=== PATIENT | female | born 1985 | race Caucasian/White ===

== ENCOUNTER 2020-01-30 02:28 | Outpatient (RCR) | payer BC, SELFPAY ==
--- NOTE | 2020-01-30 13:06 | PM.OBTRLD ---
OB - Triage/Final Diagnosis Final Diagnosis (1) False labor: Code(s): O47.9 - False labor, unspecified Status: Acute
== END 2020-03-05 07:35 | disposition home or self-care (01) ==
LOC: ANHOBOP 02:28
PROVIDERS: Visit Provider Obstetrics & Gynecology
DX: O47.1 False labor at or after 37 completed weeks of gestation (principal); Z3A.37 37 weeks gestation of pregnancy
CPT/HCPCS: 59025

== ENCOUNTER 2020-02-13 14:41 | Outpatient (CLI) | payer BC, SELFPAY ==
[2020-02-13 15:09] LABS: Hematocrit 34.9 % (37.0-47.0); Hemoglobin 11.3 g/dL (12.0-15.0); Mean Corpuscular HGB Conc 32.4 g/dl (32-36); Mean Corpuscular Hemoglobin 29.2 pg (26-34); Mean Corpuscular Volume 90.2 fl (80-100); Mean Platelet Volume 9.6 fl (7.4-10.4); Platelet Count Result 238 k/mm3 (150-375); Red Blood Count 3.87 M/mm3 (4.2-5.4); Red Cell Distribution Width 14.6 % (11.5-14.5); White Blood Count 6.6 K/mm3 (4.5-10.0)
[2020-02-14 07:34] LABS: Rapid Plasma Reagin Non-Reactive (NonReactive)
== END 2020-02-13 14:42 | disposition home or self-care (01) ==
LOC: ANHLAB 14:43
PROVIDERS: Visit Provider Obstetrics & Gynecology
DX: Z34.90 Encounter for supervision of normal pregnancy, unspecified, unspecified trimester (principal); Z3A.00 Weeks of gestation of pregnancy not specified
CPT/HCPCS: 36415; 85027; 86592; 86850; 86900; 86901

== ENCOUNTER 2020-02-14 05:08 | Inpatient (IN) | payer BC, SELFPAY ==
[2020-02-14] VITALS (79 sets, daily range): BP systolic 91–129; BP diastolic 46–89; PULSE 55–94; RESP 15–19; TEMP 36.4–36.8; O2SAT 97–100; BMI 37.0
--- NOTE | 2020-02-14 00:34 | WPDANESEPP ---
Anes - Eval Pre Procedure Procedure: Operation Date: 02/14/20 07:30 Proposed Procedures p Repeat Section, Bilateral Tubal Ligation - Shadi Rose MD Date/Time: 02/14/20 00:34 Preop Diagnosis: Previous c section, desires sterility Pre Op Diagnosis: Pre-admit Patient Data Age: 34 Gender: F Height: Weight: Allergies Allergy/AdvReac Type Severity Reaction Status Date / Time No Known Allergies Allergy Unverified 06/18/18 15:42 Home Medications Medication Instructions Recorded Confirmed Type ipfvxaay-yje-[id number]-FA 1 tablet PO DAILY 01/30/20 01/30/20 History [] Patient hx anesthesia problems: none Family hx anesthesia problems: none PMFSH Past Medical History Medical History Obesity and not yet delivered Surgical History Surgical History (Updated 02/14/20 @ 00:35 by Fer Decker CRNA) Previous section Family History Family History Mother Hypertension Social History Social History Substance use: never Gender identity (if verbalized by the patient): Female Spiritual care concerns: No Exam Day of Procedure 02/14/20 00:34 Patient weight: overweight Neurological: alert and oriented
[2020-02-14] MEDS: LACTATED RINGERS 1,000 ML 999 ML IV CONT (06:15)
--- NOTE | 2020-02-14 06:35 | LDADM ---
This patient, Latoya Doshi, was admitted to Labor/Delivery/Recovery 120 on 02/14/20 at 05:08. Plans for scheduled section, pain management and were discussed with patient. Patient/family oriented to hospital policies and general routines including ID bracelet, bed and alarms, visiting hours, pain management, procedures, bathroom and other care routines, personal items, smoking policy, room service/diet and guest tray routines, infant security routines, and visiting hours. Patient/Family are encouraged to report perceived risks to care and to ask questions if they do not understand what they are told or what they should do. See OBIX for further documentation.
[2020-02-14 06:43] LABS: HIV 1/2 Ab P24 Ag Result Negative (Negative)
--- NOTE | 2020-02-14 07:06 | PM.IMHP ---
H&P: HPI History of Present Illness Date/Time: 02/14/20 07:06 Chief Complaint: Narrative: Latoya Doshi is a 34 year old female 001 presents for repeat delivery. care has been uncomplicated without abnormalities other than advanced maternal age screening which was all benign. Also she desires permanent sterilization via tubal ligation. I have discussed the permanence failure rate increased risk of ectopic and regret and she states good understanding and consents. Review of Systems Review of Systems: All systems reviewed & are unremarkable except as noted in HPI and below PMFSH Past Medical History Medical History Obesity and not yet delivered Surgical History Surgical History Previous section Family History Family History Mother Hypertension Social History Social History Smoking status: Never smoker Substance use: never Gender identity (if verbalized by the patient): Female Spiritual care concerns: No Meds Home Medications and Allergies Home Medications Medication Instructions Recorded Confirmed Type wsacdgfm-[id number]-Jr-FA 1 tablet PO DAILY 01/30/20 01/30/20 History [] Allergies Allergy/AdvReac Type Severity Reaction Status Date / Time No Known Allergies Allergy Unverified 06/18/18 15:42 Exam Const: General: cooperative and healthy appearing Resp: Auscultation: clear to auscultation bilaterally Cardio: Rate: regular rate Rhythm: regular rhythm GI: Inspection: normal to inspection Auscultation: normal bowel sounds Other: Fundal height 40cm heart tones 140 Assessment and Plan Assessment and plan (1) Term : Code(s): Z34.90 - Encounter for supervision of normal , unspecified, unspecified trimester Status: Acute (2) Advanced maternal age (AMA) in : Status: Acute (3) Encounter for female sterilization procedure: Code(s): Z30.2 - Encounter for sterilization Status: Acute
--- NOTE | 2020-02-14 07:46 | P.PCNOB_ITS ---
OB - Delivery Note Procedure Procedure: Procedures Operation Date: 02/14/20 07:30 <No data on this case meets the specified criteria> Route of delivery: (With bilateral tubal ligation) Specimen: Yes Quantitative Blood Loss (ml): 660 Anesthesia type: Spinal Disposition: PACU Narrative: Patient was prepped and draped in the usual sterile manner for this procedure. Pfannenstiel incision was made and carried down to the fascia which was then extended bilaterally the length of the skin incision. Superiorly and inferiorly dissected away from the rectus muscles with the peritoneum readily entered and the bladder flap developed. Uterus was scored the lower segment with clear fluid noted. Vertex was delivered without difficulty in the rest of baby as well. Cord was clamped and placenta was removed manually. Uterus was exteriorized and closed after membranes and clots were removed with 0 Monocryl in running interlocking mm manner with good approximation and hemostasis noted. Bilaterally the tubes were grasped and doubly ligated using 0 plain suture and the tubal segment was removed. Uterus was returned to the abdomen uterine incision and bilateral tubal stumps were intact and hemostatic. Fascia was approximated using 0 Vicryl from left angle midline in the right angle to midline with good approximation noted. Subcutaneous tissue approximated using 0 plain in a running manner and skin skin was then approximated using constantino. At this point procedure was considered terminated. [place] Baby Weeks of gestation at delivery: 39 gender: Male Weight (pounds): 7 Weight (ounces): 5 score one minute: 8 score five minutes: 9
[2020-02-14] MEDS: OXYTOCIN 30 UNITS/NS 500 ML 30 UNITS/500 ML BAG 125 UNITS IV CONT (08:19)
[2020-02-14] MEDS: KETOROLAC 30 MG/ML VIAL (*BKC) IV PUSH (11:02)
[2020-02-14] MEDS: IBUPROFEN 600 MG TABLET PO (17:06)
[2020-02-14] MEDS: DOCUSATE SODIUM 100 MG CAPSULE PO (17:06)
[2020-02-14] MEDS: SIMETHICONE 80 MG TAB.CHEW PO (17:06)
[2020-02-14] MEDS: HYDROcodone/acetaminophen (*CRX) 10-325 MG TABLET 1 TAB PO (17:07)
[2020-02-15] MEDS: HYDROcodone/acetaminophen (*CRX) 5-325 MG TABLET 1 TAB PO ×3 (04:14→19:58)
[2020-02-15 04:15] VITALS: BP 108/71; PULSE 66; RESP 16; TEMP 36.7; O2SAT 99
[2020-02-15] MEDS: IBUPROFEN 600 MG TABLET PO ×3 (04:15→19:57)
[2020-02-15] MEDS: SIMETHICONE 80 MG TAB.CHEW PO ×2 (04:35→12:57)
[2020-02-15 05:06] LABS: Basophils Percent Auto 0.4 % (0.2-1.2); Eosinophils Absolute Auto 0.1 K/mm3 (0-0.3); Eosinophils Percent Auto 1.7 % (0-4.4); Hematocrit 26.2 % (37.0-47.0); Hemoglobin 8.4 g/dL (12.0-15.0); Immature Granulocyte Absolute 0.03 K/mm3 (0.00-0.031); Immature Granulocyte Percent A 0.6 % (0-0.5); Lymphocytes Absolute Auto 1.03 K/mm3 (0.9-3.2); Lymphocytes Percent Auto 19.3 % (18.3-44.2); Mean Corpuscular HGB Conc 32.1 g/dl (32-36); Mean Corpuscular Hemoglobin 29.2 pg (26-34); Monocytes Absolute Auto 0.6 K/mm3 (0.1-0.6); Monocytes Percent Auto 11.2 % (2.6-8.5); Neutrophils Absolute Auto 3.6 K/mm3 (1.3-6.7); Neutrophils Percent Auto 66.8 % (45.5-73.1); Platelet Count Result 191 k/mm3 (150-375); Red Blood Count 2.88 M/mm3 (4.2-5.4); Red Cell Distribution Width 14.6 % (11.5-14.5); White Blood Count 5.3 K/mm3 (4.5-10.0)
[2020-02-15 09:10] VITALS: BP 116/70; PULSE 84; RESP 18; TEMP 36.3; O2SAT 98
--- NOTE | 2020-02-15 09:30 | PM.OBDSVD ---
DS: Admitting Diagnosis Admitting Diagnosis Admitting Diagnosis: OB - DS: Summary OB Procedures : None OB Procedures Intrapartum: and Tubal ligation OB Procedures: : None Peripartum Data Procedures: Procedures Operation Date: 02/14/20 07:30 Actual Procedures Side Surgeon p Repeat Section, Bilateral Tubal Ligation Shadi Rose MD Time Spent with Patient Time attestation: Total time spent providing and/or coordinating discharge services: DS: Data Data Completed and Pending Pending studies at discharge: Pending at discharge 02/14/20 08:50 Surgical [PTH] Routine Labs on day of discharge: Labs from last 24 hours 02/15/20 04:08 WBC 5.3 RBC 2.88 L Hgb 8.4 L Hct 26.2 L MCV 91.0 MCH 29.2 MCHC 32.1 RDW 14.6 H Plt Count 191 MPV 10.0 Immature Gran % (Auto) 0.6 H Neut % (Auto) 66.8 Lymph % (Auto) 19.3 [place] % (Auto) 11.2 H Eos % (Auto) 1.7 Baso % (Auto) 0.4 Lymph # (Auto) 1.03 [place] # (Auto) 0.6 Eos # (Auto) 0.1 Baso # (Auto) 0.0 Abs Immat Gran (auto) 0.03 Absolute Neuts (auto) 3.6 Absolute Nucleated RBC 0.0 Nucleated RBC % 0.0 Discharge Plan Discharge Discharging Clinician: Shadi Rose Anticipated Discharge Date/Time: 02/16/20 09:31 Patient Disposition: Home, Self-Care Activity: as tolerated Diet: as tolerated Wound Care Instructions: incision open to air Discharge Instructions: return to office Monday of this week for staple removal. Patient Instructions: Antibiotic Form Stand Alone Forms: General Discharge Information Follow-up/Referrals: Shadi Rose MD [Physician] - 3 Weeks Discharge Medications: New ibuprofen 600 mg Tablet 600 mg PO Q6H PRN (Reason: Cramping) Qty: 30 RF: 0 Continued 1 mg Tablet 1 tablet PO DAILY RF: 0 Date of admission: 02/14/20 05:08 Primary Care Provider: PHYSICIAN,AUTOMOBILE ENGINE ASSEMBLER Admitting Provider: Shadi Rose Attending physician on admission: Shadi Rose Condition: Stable
[2020-02-15] MEDS: DOCUSATE SODIUM 100 MG CAPSULE PO ×2 (09:44→17:27)
[2020-02-15] MEDS: POLYSACCHARIDE IRON COMPLEX 150 MG CAPSULE PO ×2 (09:44→17:27)
[2020-02-15] MEDS: MULTIVIT/MIN/PREN/FOL AC/IRON TABLET 1 TAB PO (09:44)
--- NOTE | 2020-02-15 11:25 | WPDANLDPN2 ---
Anes-Prog Note L&D Date/Time: 02/15/20 11:25 Comfortable throughout: section Neuraxial method: spinal Epidural/Spinal procedure site: clean & non-tender Neuro status: Neuro function grossly intact. Cardiovascular status: normal Respiratory status: normal Airway patency: baseline Mental status: baseline Post-Op hydration status: normal Vital Signs: Last Vital Signs Temp 36.7 C 02/15/20 04:15 Pulse 66 02/15/20 04:15 Resp 16 02/15/20 04:15 BP 108/71 02/15/20 04:15 Pulse Ox 99 02/15/20 04:15 Pain score (VAS): 2/10 I/O: Intake & Output 02/14/20 02/15/20 02/15/20 23:59 07:59 15:59 Intake Total 2000 800 Output Total 750 700 Balance 1250 100 Post-procedural complaints: none Patient feedback: Patient satisfied with anesthetic care.
--- NOTE | 2020-02-15 11:26 | WPDANLDNPN2 ---
Anes-Prog Note L&D-Neuraxial Date/Time: 02/15/20 11:26 Neuraxial medications: intrathecal PF morphine Opiod-related complaints: none Patient feedback: Patient satisfied with post-operative pain management.
[2020-02-15] MEDS: HYDROcodone/acetaminophen (*CRX) 10-325 MG TABLET 1 TAB PO (12:58)
[2020-02-15 19:45] VITALS: BP 125/70; PULSE 82; RESP 18; TEMP 36.4; O2SAT 98
[2020-02-16] MEDS: HYDROcodone/acetaminophen (*CRX) 5-325 MG TABLET 1 TAB PO ×4 (04:00→19:02)
[2020-02-16] MEDS: IBUPROFEN 600 MG TABLET PO ×2 (04:01→16:19)
[2020-02-16 08:40] VITALS: BP 98/54; PULSE 67; RESP 18; TEMP 36.6
[2020-02-16] MEDS: POLYSACCHARIDE IRON COMPLEX 150 MG CAPSULE PO ×2 (08:41→16:19)
[2020-02-16] MEDS: MULTIVIT/MIN/PREN/FOL AC/IRON TABLET 1 TAB PO (08:41)
[2020-02-16] MEDS: DOCUSATE SODIUM 100 MG CAPSULE PO ×2 (08:41→16:19)
[2020-02-16 19:01] VITALS: BP 104/62; PULSE 70; RESP 18; TEMP 36.3; O2SAT 96
[2020-02-17] MEDS: HYDROcodone/acetaminophen (*CRX) 5-325 MG TABLET 1 TAB PO ×2 (00:07→11:08)
[2020-02-17] MEDS: IBUPROFEN 600 MG TABLET PO ×2 (00:07→11:08)
[2020-02-17 08:05] VITALS: BP 110/55; PULSE 78; RESP 16; TEMP 37.1; O2SAT 99
--- NOTE | 2020-02-17 10:22 | PC.NURSE ---
Consulted with patient, reviewed feeding cues, frequencies, duration of feedings, feeding elimination flow sheet, and signs of adequate intake. Nipple care reviewed. Mom states that she breastfed her first daughter for 14 months just stopping 4 months ago. Mom declines having a feeding observed and states she does not have any questions. Instructed mother to call out if she decides she wants to have a feeding observed. Instructed feeding should be initiated three hours from start of last feeding or if feeding cues are noted before. Mother voiced understanding of information shared.
--- NOTE | 2020-02-17 10:29 | PC.NURSE ---
Mother verbalizes she is able to independently latch with appropriate positioning/alignment. She denies any nipple discomfort, is feeding as required and waking to feed if needed. Infant has had 14 effective feedings in the past 24 hours, and is currently meeting outcomes for weight, output, jaundice and feeding frequencies. Mother states she feels confident to continue effective at home. Reviewed transition to breast milk, signs of adequate intake, and engorgement/relief. Instructed to call ICP if intake/output less than required. Reviewed community resources on the [facility] website and in the Mom/Baby guide. Information on outpatient services provided. Mother has no further questions at this time.
[2020-02-17] MEDS: DOCUSATE SODIUM 100 MG CAPSULE PO (11:09)
[2020-02-17] MEDS: POLYSACCHARIDE IRON COMPLEX 150 MG CAPSULE PO (11:09)
[2020-02-17] MEDS: MULTIVIT/MIN/PREN/FOL AC/IRON TABLET 1 TAB PO (11:09)
[2020-02-18 08:55] VITALS: BP 136/83; PULSE 89; RESP 20; TEMP 37; O2SAT 100
--- NOTE | 2020-03-02 08:35 | PM.OBDSVD ---
DS: Admitting Diagnosis Admitting Diagnosis Admitting Diagnosis: OB - DS: Summary OB Procedures : None OB Procedures Intrapartum: OB Procedures: : None Peripartum Data Procedures: Procedures Operation Date: 02/14/20 07:30 Actual Procedures Side Surgeon p Repeat Section, Bilateral Tubal Ligation Shadi Rose MD Time Spent with Patient Time attestation: Total time spent providing and/or coordinating discharge services: DS: Data Data Completed and Pending Completed studies during hospitalization: Pending at discharge 02/14/20 08:50 Surgical [PTH] Routine Discharge Plan Discharge Discharging Clinician: Shadi Rose Anticipated Discharge Date/Time: 02/16/20 09:31 Patient Disposition: Home, Self-Care Activity: as tolerated Diet: as tolerated Wound Care Instructions: incision open to air Discharge Instructions: Education: Mom and Baby Guide Given to: Mother Follow-Up: Call your delivering provider's office for an appointment to be seen in: Monday, February 18 for staple removal and then in 3 weeks for regular exam. Mom and baby should come to the [facility] for the follow-up appointment. Appointment Date/Time: February 18, 2020 at 9:00 am What to expect at your follow-up visit: Blood Pressure Check Physical Assessment Call [phone] if you are unable to keep your appointment time. BREAST CARE: * Wear a snug supportive bra. * For engorgement discomfort: Breast Feeding: * Apply warm moist washcloths * Express milk as needed to relieve engorgement * Wear loose clothing * For sore nipples: * Identify correct latch-on * Apply warm moist washcloths before and after nursing * Air dry nipples after nursing * May apply Lansinoh cream to nipples ABDOMINAL INCISION: (if applicable) * Allow incision to air dry * Do NOT use lotions for powders on your incision * When showering, allow soap and water to run over the incision, but do not wash incision EPISIOTOMY/PERINEAL CARE: * Until bleeding stops, use your aliya bottle after urinating * Change your pad frequently throughout the day * You may take sitz baths several times a day (fill your bathtub with warm water and soak for 20 minutes.) Do NOT bathe in the water * No tub baths until seen by your physician - You may shower ACTIVITY: * Rest as much as possible. * Do not exercise or lift anything heavier than your baby (such as laundry or other children.) * Avoid stairs or driving as much as possible. * Do not put anything into the vagina. No douching, tampons, or sexual activity until seen by physician. NOTIFY PHYSICIAN IF YOU HAVE ANY QUESTIONS OR IF ANY OF THE FOLLOWING SYMPTOMS OCCUR: * If your incision becomes red, swollen, or more painful than what you have experienced in the hospital. * If your vaginal bleeding becomes foul smelling. * If your vaginal bleeding becomes more heavy than a period or if your bleeding changes from pink to bright red. However, you may pass an occasional walnut-sized clot once or twice for the first week . * If you experience a sharp, shooting pain in your calves. * If you discover a hard, reddened area on your breast or if you experience flu-like symptoms. DIET: * Eat regular, well-balanced meals. * Drink plenty of fluids daily. If , drink to thirst. Return to office Monday of this week for staple removal. Stand Alone Forms: General Discharge Information Follow-up/Referrals: Shadi Rose MD [Physician] - 3 Weeks Discharge Medications: New ibuprofen 600 mg Tablet 600 mg PO Q6H PRN (Reason: Cramping) Qty: 30 RF: 0 oxycodone-acetaminophen [Percocet] 5-325 mg tablet 1 tablet PO Q6H Qty: 20 RF: 0 Continued outwsbku-mjy-Oy-FA 1 mg Tablet 1 tablet PO DAILY
== END 2020-02-17 12:05 | disposition home or self-care (01) | DRG 785 ==
LOC: ANHLDR 05:15 → ANHOB2 10:30
PROVIDERS: Admitting Provider Obstetrics & Gynecology; Visit Provider Obstetrics & Gynecology
PROC: 10D00Z1 Extraction of Products of Conception, Low, Open Approach (ICD-10-PCS; CPT 59514; principal; 2020-02-14 07:30)
DX: O34.211 Maternal care for low transverse scar from previous cesarean delivery (principal); Z30.2 Encounter for sterilization; Z3A.39 39 weeks gestation of pregnancy; Z37.0 Single live birth
CPT/HCPCS: 36415; 85025; 86703; 88302; A9270; G0432; J0131; J1885; J2274; J2405; J2590; J7120

== ENCOUNTER 2021-06-29 18:01 | Emergency (ER) | payer BC, SELFPAY ==
--- NOTE | ~2021-06-29 | CT_ITS ---
EXAMINATION: CT abdomen pelvis w con DATE: 06/29/2021 19:16 INDICATION: upper ABD pain X 6 days TECHNIQUE: Computed tomography (CT) of the abdomen and pelvis was performed with 100 mL Omnipaque-350 intravenous contrast. Automated exposure control and iterative reconstruction technique were employe d. The dose-length product was 1487.18 mGy-cm. COMPARISON: None FINDINGS: Lower thorax: Unremarkable. Liver: Normal. Biliary/Gallbladder: Gallbladder is normal. No bile duct dilation. Spleen: Normal. Pancreas: No mass or duct dilation. Adrenals:No mass. Kidneys: No mass, stone, or hydronephrosis. GI tract: No small or large bowel dilation. Appendix not visualized. Long segment wall edema and mucosal hyperemia involving the distal and terminal ileum. At the midline portion of involved small bowel is focal outpouching measuring 2 cm (axial 150/214). Mesentery/Peritoneum: No ascites, mass, or free air. Numerous subcentimeter right lower quadrant mese nteric nodes. Retroperitoneum: No mass. Pelvis: Pelvic organs are within normal limits. Bones/Soft Tissues: Soft tissues and body wall unremarkable. No acute osseous finding. Additional Findings: None. IMPRESSION: Infectious or inflammatory distal and terminal ileitis (if there is a history of vasculitis, ischemia could also be considered in the differential). Associated inflamed Meckel's diverticulum versus tiffanie y fistula formation, with the later more likely if there is a history of IBD. Reviewed, dictated and finalized at location K. IMPRESSION: Infectious or inflammatory distal and terminal ileitis (if there is a history o f vasculitis, ischemia could also be considered in the differential). Associate d inflamed Meckel's diverticulum versus early fistula formation, with the later more likely if there is a history of IBD.
[2021-06-29 18:03] VITALS: BP 141/92; PULSE 102; RESP 16; TEMP 35.9; O2SAT 100
--- NOTE | 2021-06-29 18:22 | ED.ABDPAIN ---
HPI - Abdominal Pain General Chief Complaint: Abdominal Pain <ALONDRA Grover Last Filed: 06/30/21 00:17> Stated Complaint: abd pain <ALONDRA Grover Last Filed: 06/30/21 00:17> Time Seen by Provider: 06/29/21 18:09 <ALONDRA Grover Last Filed: 06/30/21 00:17> Source: patient <ALONDRA Grover Last Filed: 06/30/21 00:17> Mode of arrival: ambulatory <ALONDRA Grover Last Filed: 06/30/21 00:17> Limitations: no limitations <ALONDRA Grover Last Filed: 06/30/21 00:17> History of Present Illness HPI narrative: Patient is a 35 y/o F who presents to the ED with c/o epigastric abdominal pain. Patient reports having intermittent upper abdominal pain for the last 6 days. She states the pain will last approximately 3-5 minutes at a time before resolving. Over the last 6 days, the pain has become progressively worse. She did have a longer and more severe episode of pain prior to arrival tonight, which prompted her presentation to the ED. She has not tried taking any pain medication for the pain as it only lasts for a few minutes. She did try taking 1 of her 's acid reflux medication, but denied any noticeable change with this. She states the pain seems to be worse when she is hungry, but she denies noticing any post prandial pain. She denies any other symptoms, fever, chills, nausea, vomiting, diarrhea, constipation, cough, congestion, urinary symptoms, back pain. <ALONDRA Grover Last Filed: 06/30/21 00:17> Related Data Home Medications: Home Medications Medication Instructions Recorded Confirmed nugybrut-bvh-Tp-FA 1 tablet PO DAILY 01/30/20 01/30/20 <ALONDRA Grover Last Filed: 06/30/21 00:17> Allergies/Adverse Reactions: Allergies Allergy/AdvReac Type Severity Reaction Status Date / Time No Known Allergies Allergy Unverified 06/18/18 15:42 <Wendy Hewitt PA-C - Last Filed: 06/30/21 00:17> Review of Systems Review of Systems: CONSTITUTIONAL: Denies fever, chills, or sweats. ENT: Denies congestion. CARDIOVASCULAR: Denies chest pain. RESPIRATORY: Denies cough or dyspnea. GASTROINTESTINAL: Reports intermittent upper abdominal pain. Denies nausea, vomiting, rectal bleeding, constipation, or diarrhea. GENITOURINARY: Denies dysuria or hematuria. MUSCULOSKELETAL: Denies back pain. NEUROLOGIC: Denies headache, numbness, or weakness. <Wendy Hewitt PA-C - Last Filed: 06/30/21 00:17> All systems reviewed & are unremarkable except as noted in HPI and below <Wendy Hewitt PA-C - Last Filed: 06/30/21 00:17> PMFSH Past Medical History Medical History: Medical History Obesity and not yet delivered <Wendy Hewitt PA-C - Last Filed: 06/30/21 00:17> Surgical History Surgical History: Surgical History Previous section <Wendy Hewitt PA-C - Last Filed: 06/30/21 00:17> Family History Family History: Family History Mother Hypertension <Wendy Hewitt PA-C - Last Filed: 06/30/21 00:17> Social History Social History: Social History Smoking status: Never smoker Substance use: never Gender identity (if verbalized by the patient): Female Spiritual care concerns: No <Wendy Hewitt PA-C - Last Filed: 06/30/21 00:17> Exam Narrative: GENERAL: Well appearing, well-nourished, non-toxic, in no acute distress. HEAD: Normocephalic, atraumatic. NECK: Supple. No adenopathy, no masses. RESPIRATORY: Airway patent, respirations nonlabored. Clear to auscultation bilaterally, no rales, rhonchi, wheezing. CARDIOVASCULAR: Regular rate and rhythm without murmurs, rubs, or gallops. Radial pulses 2+ and equal bilaterally. ABDOMINAL: Soft, minimal ten
[2021-06-29 18:37] LABS: Basophils Percent Auto 0.5 % (0.2-1.2); Eosinophils Absolute Auto 0.4 K/mm3 (0-0.3); Eosinophils Percent Auto 4.9 % (0-4.4); Hematocrit 41.3 % (37.0-47.0); Hemoglobin 12.9 g/dL (12.0-15.0); Immature Granulocyte Absolute 0.03 K/mm3 (0.00-0.031); Immature Granulocyte Percent A 0.4 % (0-0.5); Lymphocytes Absolute Auto 1.15 K/mm3 (0.9-3.2); Lymphocytes Percent Auto 14.1 % (18.3-44.2); Mean Corpuscular HGB Conc 31.2 g/dl (32-36); Mean Corpuscular Hemoglobin 27.9 pg (26-34); Mean Corpuscular Volume 89.2 fl (80-100); Mean Platelet Volume 8.8 fl (7.4-10.4); Monocytes Absolute Auto 0.8 K/mm3 (0.1-0.6); Monocytes Percent Auto 9.3 % (2.6-8.5); Neutrophils Absolute Auto 5.8 K/mm3 (1.3-6.7); Neutrophils Percent Auto 70.8 % (45.5-73.1); Platelet Count Result 336 k/mm3 (150-375); Red Blood Count 4.63 M/mm3 (4.2-5.4); Red Cell Distribution Width 14.3 % (11.5-14.5); White Blood Count 8.2 K/mm3 (4.5-10.0)
[2021-06-29 18:40] VITALS: O2SAT 100
[2021-06-29 18:41] VITALS: BP 124/79; PULSE 100; RESP 18; O2SAT 100
[2021-06-29 18:49] LABS: Alanine Aminotransferase 20 U/L (4-35); Albumin Level 4.7 g/dL (3.5-5.1); Alkaline Phosphatase 118 U/L (38-126); Anion Gap 6 mmol/L (8-16); Aspartate Amino Transferase 29 U/L (14-36); Bilirubin,Total 0.2 mg/dL (0.2-1.3); Blood Urea Nitrogen 15 mg/dL (7-17); Carbon Dioxide 29 mmol/L (22-30); Chloride 103 mmol/L (98-107); Estimated CRCL calculation 97 ml/min; Estimated Glomerular Filt Rate > 60; Glucose 97 mg/dL (65-110); Lipase 128 U/L (23-300); Potassium 4.1 mmol/L (3.4-5.0); Sodium 138 mmol/L (137-145)
[2021-06-29 18:53] LABS: Appearance Urine Clear (Clear); Bilirubin Urine Negative (Negative); Blood Urine Negative (Negative); Glucose Urine UA Negative (Negative); Ketones Urine Negative (Negative); Leukocyte Esterase Ur Negative LEU/UL (Negative); Nitrate Urine Negative (Negative); Protein Urine Negative (Negative); Urobilinogen Urine 0.2 mg/dL (<2.0); pH Urine 6.5 (5.0-9.0)
[2021-06-29 18:57] LABS: Add Urine Microscopic? NO; Color Urine Light Yellow (Yellow)
[2021-06-29 20:20] LABS: Lactic Acid Reflex 0.5 mmol/L (0.7-2.0)
[2021-06-29 21:00] VITALS: BP 120/80; PULSE 88; RESP 19; O2SAT 97
== END 2021-06-29 21:00 | disposition home or self-care (01) ==
PROVIDERS: Physician Assistant; Emergency Provider Emergency Medicine
DX: K50.00 Crohn's disease of small intestine without complications (principal); E66.9 Obesity, unspecified; Z68.37 Body mass index [BMI] 37.0-37.9, adult; R93.3 Abnormal findings on diagnostic imaging of other parts of digestive tract
CPT/HCPCS: 36415; 74177; 80053; 81003; 81025; 83605; 83690; 85025; 99284; Q9967

== ENCOUNTER 2021-08-29 02:20 | Inpatient (IN) | payer BC, SELFPAY ==
[2021-08-29] VITALS (10 sets, daily range): BP systolic 106–144; BP diastolic 60–96; PULSE 91–152; RESP 15–25; TEMP 36.2–37.7; O2SAT 97–100; BMI 34.8
--- NOTE | ~2021-08-29 | XR_ITS ---
XR small bowel follow through DATE: 08/31/2021 14:38 INDICATION: Ileitis. Epigastric abdominal pain, fever TECHNIQUE: Serial images after oral administration of barium. Spot radiographs of the terminal ileum. [id number] DAP COMPARISON: 08/29/2021 CT abdomen pelvis 06/29/2021 CT abdomen pelvis FINDINGS: No large duodenal bulb. Normal duodenal C-loop with normal position of the ligament of Trei tz. No stricture, mucosal fold thickening erosion or ulceration or intraluminal mass lesion of the duoden um or jejunum. There are are at least several strictured distal ileal and terminal ileal segments with mucosal irreg ularity and thickening with intervening skip segments, which is common with regional enteritis (Crohn 's disease). IMPRESSION: Crohn's disease with at least several distal ileal and terminal ileal strictured segments with mucosal fold irregularity and thickening Contrast material reaches the colon within 1.5 hours. Reviewed, dictated and finalized at [facility] Reviewed, dictated and finalized at [facility]. IMPRESSION: Crohn's disease with at least several distal ileal and terminal ile al strictured segments with mucosal fold irregularity and thickening Contrast material reaches the colon within 1.5 hours.
--- NOTE | ~2021-08-29 | CT_ITS ---
EXAMINATION: CT abdomen pelvis w con DATE: 08/29/2021 05:23 INDICATION: Epigastric abdominal pain, fever TECHNIQUE: Computed tomography (CT) of the abdomen and pelvis was performed with 100 CC Omnipaque 300 intravenous contrast. Automated exposure control and iterative reconstruction technique were employe d. Exam dose: 1269.44 mGy-cm total exam DLP. COMPARISON: 06/29/2021 CT abdomen pelvis FINDINGS: Mild bilateral dependent lower lobe atelectasis. Normal heart size. No pericardial or pleur al effusion. The liver, gallbladder, bile ducts, spleen, pancreas, pancreatic duct, and adrenal glands and kidneys are unremarkable. No urinary tract calculus or hydroureteronephrosis. Normal caliber of the abdominal aorta. No retroperitoneal or pelvic mass lesion or adenopathy or asci kayleigh. The uterus and adnexal areas and urinary bladder is unremarkable. Normal appendix. There is prominent thickening of the wall and surrounding fat stranding of the dista l ileum and terminal ileum, suggesting infectious or inflammatory ileitis, most likely Crohn's diseas e. There is an adjacent 2.6 x 2.4 cm abscess. Mild reactive right lower quadrant lymph nodes are note d. IMPRESSION: Distal and terminal ileitis, 2.6 x 2.4 cm adjacent abscess, likely secondary to Crohn's disease Reviewed, dictated and finalized at [facility] Reviewed, dictated and finalized at [facility].
[2021-08-29] MEDS: SODIUM CHLORIDE 0.9% IV 1,000 ML 999 ML IV CONT (03:09)
[2021-08-29] MEDS: HYDROmorphone HCL INJ (*CRX) 1 MG/ML SYR 0.5 MG IV PUSH ×3 (03:10→19:59)
--- NOTE | 2021-08-29 03:12 | ED.GENADULT ---
HPI - General Adult General Chief complaint: Abdominal Pain Stated complaint: Epigastric pain, fever Time Seen by Provider: 08/29/21 02:31 History of Present Illness HPI narrative: 36-year-old female presented to the emergency department for evaluation of multiple days of epigastric pain with associated low-grade fever. Patient states that she has had epigastric pain that is constant. She reports it is not worsened or improved by anything. Patient denies any lower abdominal pain. Patient denies any cough or shortness of breath. Patient does have prior history of . Patient denies any prior history of Crohn's disease. Related Data Home Medications Medication Instructions Recorded Confirmed No Home Medications 08/29/21 08/29/21 Allergies Allergy/AdvReac Type Severity Reaction Status Date / Time No Known Allergies Allergy Verified 08/29/21 15:12 Review of Systems Review of Systems: CONSTITUTIONAL: Denies fever, chills, or sweats. EYES: Denies visual changes, redness, or discharge. ENT: Denies rhinorrhea, congestion, sore throat, or otalgia. CARDIOVASCULAR: Denies chest pain, palpitations, or edema. RESPIRATORY: Denies cough or dyspnea. GASTROINTESTINAL: See HPI GENITOURINARY: Denies dysuria or hematuria. SKIN: Denies rash or itching. MUSCULOSKELETAL: Denies back pain, joint pain, or myalgia. NEUROLOGIC: Denies headache, numbness, or weakness. [facility] Past Medical History Medical History Obesity Surgical History Surgical History Previous section Family History Family History Mother Hypertension Heart disease Acute myocardial infarction Grandparent Brain cancer Grandparent Diabetes mellitus Social History Social History (Updated 08/29/21 @ 15:18 by Harini Lorenzo RN) Social History: Patient lives at home with her Norman who will be her surrogate. They have 2 kids 1 boy 1 girl and no pets. 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 HEAD: normocephalic, atraumatic. EYES: PERRLA/EOMI, conjunctivae clear. NOSE: Normal no drainage THROAT: Pharynx clear, no exudate. NECK: Supple. No adenopathy, no masses. RESPIRATORY: Airway patent, respirations nonlabored. Clear to auscultation bilaterally, no rales, rhonchi, wheezing. CARDIOVASCULAR: Regular rate and rhythm without murmurs rubs or gallops. ABDOMINAL: Epigastric tenderness to palpation. No lower abdominal tenderness to palpation. No evidence of peritonitis. MUSCULOSKELETAL: Moves all extremities. Strength/ROM intact, No edema, No calf tenderness. NEURO: Alert. Cranial nerves II through XII intact. Grossly intact SKIN: Warm, dry. Normal Color Course Course Emergency Course: Dr. Grimes for surgery and Dr. Thompson for GI were consulted. Case was discussed with the hospitalist and patient was accepted for admission to the IMU. Patient was started on Zosyn while in the ED. Patient was updated on the results of her CT, plan to treat with antibiotics and for admission with further work-up. All question concerns were addressed. Patient was resting comfortably. Tachycardia improved. Vital Signs Vital signs: Vital Signs Temperature 99.
[2021-08-29 03:27] LABS: Basophils Percent Auto 0.3 % (0.2-1.2); Eosinophils Absolute Auto 0.2 K/mm3 (0-0.3); Eosinophils Percent Auto 1.9 % (0-4.4); Hematocrit 38.6 % (37.0-47.0); Hemoglobin 12.2 g/dL (12.0-15.0); Immature Granulocyte Absolute 0.05 K/mm3 (0.00-0.031); Immature Granulocyte Percent A 0.4 % (0-0.5); Lymphocytes Absolute Auto 0.91 K/mm3 (0.9-3.2); Lymphocytes Percent Auto 8.1 % (18.3-44.2); Mean Corpuscular HGB Conc 31.6 g/dl (32-36); Mean Corpuscular Hemoglobin 27.3 pg (26-34); Mean Corpuscular Volume 86.4 fl (80-100); Mean Platelet Volume 9.8 fl (7.4-10.4); Monocytes Absolute Auto 1.1 K/mm3 (0.1-0.6); Monocytes Percent Auto 10.2 % (2.6-8.5); Neutrophils Absolute Auto 8.9 K/mm3 (1.3-6.7); Neutrophils Percent Auto 79.1 % (45.5-73.1); Platelet Count Result 352 k/mm3 (150-375); Red Blood Count 4.47 M/mm3 (4.2-5.4); Red Cell Distribution Width 14.8 % (11.5-14.5); White Blood Count 11.2 K/mm3 (4.5-10.0)
[2021-08-29 03:30] LABS: Appearance Urine Clear (Clear); Bilirubin Urine Negative (Negative); Color Urine Yellow (Yellow); Glucose Urine UA Negative (Negative); Ketones Urine Negative (Negative); Leukocyte Esterase Ur Negative LEU/UL (Negative); Nitrate Urine Negative (Negative); Protein Urine Negative (Negative); Specific Grav Ur 1.015 (1.001-1.035); Urobilinogen Urine 0.2 mg/dL (<2.0); pH Urine 7.5 (5.0-9.0)
[2021-08-29 03:35] LABS: Bacteria Urine Trace /hpf; Mucus Urine Rare /lpf; RBC Urine 0-2 /hpf (0-2); Squamous Epithelial Cell Urine Few /hpf (Few); WBC Urine 0-3 /hpf
[2021-08-29 03:41] LABS: Add Urine Microscopic? YES; Blood Urine Trace (Negative)
[2021-08-29 03:49] LABS: Urine Pregnancy Test Negative
[2021-08-29 03:50] LABS: Pregnancy On Board Control Positive
[2021-08-29 04:00] LABS: Lactic Acid Reflex 0.6 mmol/L (0.7-2.0)
[2021-08-29 04:03] LABS: SARS-CoV-2 RNA PCR Negative
--- NOTE | 2021-08-29 04:14 | PC.NURSE ---
Received call from Makeda in Lab, who requests redraw CMP to confirm abnormally low potassium level. Order placed.
[2021-08-29 04:38] LABS: Alanine Aminotransferase 36 U/L (6-35); Albumin Level 3.8 g/dL (3.5-5.1); Alkaline Phosphatase 120 U/L (38-126); Anion Gap 5 mmol/L (8-16); Aspartate Amino Transferase 55 U/L (14-36); Bilirubin,Total 0.3 mg/dL (0.2-1.3); Blood Urea Nitrogen 8 mg/dL (7-17); Calcium 7.9 mg/dL (8.4-10.2); Carbon Dioxide 23 mmol/L (22-30); Chloride 107 mmol/L (98-107); Estimated Glomerular Filt Rate > 60; Glucose 109 mg/dL (65-110); Potassium 3.8 mmol/L (3.4-5.0); Sodium 135 mmol/L (137-145)
[2021-08-29] MEDS: SODIUM CHLORIDE 0.9% IV 1,000 ML 150 ML IV CONT (06:50)
--- NOTE | 2021-08-29 07:14 | PC.NURSE ---
Assumed care of pt, pt is alert and upright on stretcher, discussed POC. Pt has fluids and antibiotics infusing, blood cultures ordered and will be drawn by this RN.
--- NOTE | 2021-08-29 07:45 | PM.IMHP ---
H&P: HPI History of Present Illness Date/Time: 08/29/21 07:45 Chief Complaint: abdominal pain Narrative: Patient is a 36-year-old female with no significant medical history who presented the ED for abdominal pain and low-grade fever. Patient stated that she has been battling this off and on for about 6 weeks. However on Monday she woke up with what felt like fever and epigastric pain. She stated that her pain was about a 6/10 and was sharp and stabbing and dull. Patient stated that she was having some sweats and chills. She did state that about 2 weeks ago she came to the hospital for the same thing and they discharged with Levaquin however she chalked it up to the gas and did not take the medication. When the pain returned on Monday she did state that she took the Levaquin and has taken a total of 2 doses. She stated that she tried taking 2 Tylenol without relief. She also stated that she has been eating but very little. Yesterday she stated that she had some meatloaf, green beans, mashed potatoes however food does not exacerbate her pain. She did state that her pain has been progressively getting worse and was worse today. Liver enzymes are also elevated with an AST of 55 and ALT of 36. Patient denies any weakness, fatigue, shortness of breath, chest pain, nausea, vomiting, melena, hematemesis, headaches, visual changes, dizziness or falls. CT of the abdomen and pelvis with contrast was read as thickened appearance of the distal small bowel loops the level of the distal ileum with an abscess of 2.6 x 2.4 cm adjacent to the inflamed ileum. Also looks to reflect Crohn's disease. General surgery and GI has been consult. Patient did also express concerns about dehydration and stated that she is very dry. Heart rate is in the 120s. Patient received 1 L of fluids in the ED. Patient is being admitted through the hospitalist service at under observation at this time Review of Systems Review of Systems: All systems reviewed & are unremarkable except as noted in HPI and below PMFSH Past Medical History Medical History (Updated 08/29/21 @ 09:05 by KARLA Johnston) Obesity Surgical History Surgical History Previous section Family History Family History (Updated 08/29/21 @ 09:09 by KARLA Johnston) Mother Hypertension Heart disease Acute myocardial infarction Grandparent Brain cancer Grandparent Diabetes mellitus Social History Social History (Updated 08/29/21 @ 09:10 by KARLA Johnston) Social History: Patient lives at home with her Norman who will be her surrogate. They have 2 kids 1 boy 1 girl and no pets. 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 [employer] Gender identity (if verbalized by the patient): Female Spiritual care concerns: No Agree to blood products: Yes Meds Home Medications and Allergies Home Medications Medication Instructions Recorded Confirmed Type No Home Medications 08/29/21 08/29/21 History Allergies Allergy/AdvReac Type Severity Reaction Status Date / Time No Known Allergies Allergy Verified 08/29/21 02:26 Vital Signs Vital Signs - 24 hr 08/29/21 02:22 08/29/21 04:23 08/29/21 04:50 Temperature 99.8 F H 97.2 F L Pulse Rate 152 H 103 H 109 H Respiratory Rate 20 18 16 Blood Pressure 142/96 H 127/68 116/74 Pulse Oximetry 99 97 100 Oxygen Delivery Room Air 08/29/21 06:09 Temperature Pulse Rate 114 H Respiratory Rate 18 Blood Pressure 137/70 Pulse Oximetry 100 Oxygen Delivery Exam Const: General: cooperative, no acute distress, well developed, alert and aw
--- NOTE | 2021-08-29 08:31 | PC.NURSE ---
and HS at bedside, ok to downgrade patient to [facility] at this time.
[2021-08-29] MEDS: LACTATED RINGERS 1,000 ML 999 ML IV CONT (10:16)
--- NOTE | 2021-08-29 11:11 | PM.CNGS ---
Assessment and Plan Assessment and plan (1) Crohn's ileitis: Code(s): K50.00 - Crohn's disease of small intestine without complications Status: Deleted (2) Abdominal abscess: Status: Deleted (3) Crohn's disease of ileum with abscess: Code(s): K50.014 - Crohn's disease of small intestine with abscess Status: Acute Assessment and Plan: patient is pain-free at present. Agree with IV antibiotic therapy. Dr. Thompson to see and possibly start steroid therapy or other immune modulating therapy. Explained to patient that surgery only needed if medical therapy should fail. Abscess is small and I am hopeful it will resolve as the Crohn's disease is treated. Thank you for asking me to see this patient in consultation. I will follow along with you. History of Present Illness Consult details Consult date: 08/29/21 Reason for consult: abdominal pain ( Epigastric abdominal pain, fever) Requesting physician: Tres Conley MD Narrative: patient is a 36-year-old woman who has been very healthy. Six weeks ago she noticed some epigastric abdominal pain. it was troublesome enough that she went to the emergency room on June 29, 2021. CT imaging at that time suggested some type of ileitis. It was unclear if this was infectious or inflammatory bowel disease. Patient was to follow-up with Dr. Thompson. After her emergency room visit, she was fine. Until about 6 days ago. She then redeveloped her epigastric pain. It was not severe but did persist. Than Monday, 2 days ago, she started having fever. She came back to the emergency room last night. Exam there showed her to have a low-grade fever of 99.8 [place] [address]. She had a CT scan of the abdomen and pelvis which was read as showing ileitis likely Crohn's disease with a small mesenteric abscess of about 2 cm. Patient received analgesics in the emergency room and was pain-free at the time I saw her. She has been admitted and started on IV antibiotics. Dr. Thompson has been consulted to see her for gastroenterology. She is seen now in consultation. She has had no previous abdominal surgery. She has no family history of inflammatory bowel disease. Review of Systems Review of Systems: All systems reviewed & are unremarkable except as noted in HPI and below Constitutional: Constitutional: Reports as per HPI and Reports fever(s) Cardiovascular: Cardiovascular: Denies chest pain, Denies diaphoresis, Denies dyspnea and Denies paroxysmal nocturnal dyspnea Respiratory: Respiratory: Denies chest congestion, Denies cough and Denies dyspnea Gastrointestinal: Gastrointestinal: Reports abdominal pain ( Epigastric), Denies GI cramping, Denies diarrhea, Denies nausea and Denies vomiting Integumentary/Breasts: Skin/Breast: Denies lesions and Denies rash PMFSH Past Medical History Medical History (Updated 08/29/21 @ 11:24 by Tyler Grimes MD) Obesity Surgical History Surgical History Previous section Family History Family History (Updated 08/29/21 @ 09:09 by KARLA Johnston) Mother Hypertension Heart disease Acute myocardial infarction Grandparent Brain cancer Grandparent Diabetes mellitus Social History Social History (Updated 08/29/21 @ 09:10 by KARLA Johnston) Social History: Patient lives at home with her Norman who will be her surrogate. They have 2 kids 1 boy 1 girl and no pets. 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
[2021-08-29] MEDS: PANTOPRAZOLE SODIUM IV 40 MG VIAL IV PUSH ×2 (12:22→19:59)
--- NOTE | 2021-08-29 15:10 | ADMGEN ---
This patient, Latoya Doshi, was admitted to Medical Room 349-01. Patient/family oriented to hospital policies and general routines including ID bracelet, bed and alarms, visiting hours, pain management, procedures, bathroom and other care routines, personal items, smoking policy, room service/diet, and visiting hours. Information on how to activate the Rapid Response Team has been discussed. Patient/Family are encouraged to report perceived risks to care and to ask questions if they do not understand what they are told or what they should do.
[2021-08-30] MEDS: HYDROmorphone HCL INJ (*CRX) 1 MG/ML SYR 0.5 MG IV PUSH ×4 (00:26→15:09)
[2021-08-30 05:39] VITALS: BP 126/76; PULSE 93; RESP 18; TEMP 36.4; O2SAT 100
[2021-08-30 06:15] LABS: Basophils Percent Auto 0.4 % (0.2-1.2); Eosinophils Absolute Auto 0.2 K/mm3 (0-0.3); Eosinophils Percent Auto 1.7 % (0-4.4); Hematocrit 33.5 % (37.0-47.0); Hemoglobin 10.3 g/dL (12.0-15.0); Immature Granulocyte Absolute 0.04 K/mm3 (0.00-0.031); Immature Granulocyte Percent A 0.4 % (0-0.5); Lymphocytes Absolute Auto 1.24 K/mm3 (0.9-3.2); Lymphocytes Percent Auto 13.8 % (18.3-44.2); Mean Corpuscular HGB Conc 30.7 g/dl (32-36); Mean Corpuscular Hemoglobin 27.2 pg (26-34); Mean Corpuscular Volume 88.4 fl (80-100); Mean Platelet Volume 8.9 fl (7.4-10.4); Monocytes Absolute Auto 0.9 K/mm3 (0.1-0.6); Monocytes Percent Auto 10.4 % (2.6-8.5); Neutrophils Absolute Auto 6.6 K/mm3 (1.3-6.7); Neutrophils Percent Auto 73.3 % (45.5-73.1); Platelet Count Result 284 k/mm3 (150-375); Red Blood Count 3.79 M/mm3 (4.2-5.4); Red Cell Distribution Width 14.9 % (11.5-14.5)
[2021-08-30 06:32] LABS: Alanine Aminotransferase 30 U/L (6-35); Albumin Level 3.6 g/dL (3.5-5.1); Alkaline Phosphatase 116 U/L (38-126); Anion Gap 5 mmol/L (8-16); Aspartate Amino Transferase 31 U/L (14-36); Bilirubin,Total 0.8 mg/dL (0.2-1.3); Blood Urea Nitrogen 8 mg/dL (7-17); Calcium 8.1 mg/dL (8.4-10.2); Carbon Dioxide 26 mmol/L (22-30); Chloride 104 mmol/L (98-107); Estimated CRCL calculation 68 ml/min; Estimated Glomerular Filt Rate 56; Glucose 102 mg/dL (65-110); Magnesium 2.2 mg/dL (1.6-2.3); Potassium 4.1 mmol/L (3.4-5.0); Sodium 135 mmol/L (137-145)
[2021-08-30 07:50] LABS: Hepatitis B Surface Antigen Negative (Negative)
[2021-08-30 07:56] LABS: HAV RESULT Negative (Negative); Hepatitis B Core IgM Result Negative (Negative)
[2021-08-30 08:07] LABS: Hepatitis C Virus Antibody Negative (Negative)
[2021-08-30] MEDS: PANTOPRAZOLE SODIUM IV 40 MG VIAL IV PUSH ×2 (10:52→20:17)
--- NOTE | 2021-08-30 11:08 | WPDGICN ---
Assessment and Plan Assessment and plan (1) Crohn's disease of ileum with abscess: Code(s): K50.014 - Crohn's disease of small intestine with abscess Status: Acute Assessment and Plan: most likely diagnosis will get inflammatory markers, calprotectin in stool also check for TB status will do colonoscopy tomorrow, probably also will need SBFT already on abx and feeling better I think that she will need to be on biologics (anti-tnf, entyvio, skyrizi, etc) based on presentation (2) Sepsis: Code(s): A41.9 - Sepsis, unspecified organism Status: Acute Assessment and Plan: better, on treatment (3) Transaminitis: Code(s): R74.01 - Elevation of levels of liver transaminase levels Status: Acute Assessment and Plan: resolved probably from ongoing inflammation (4) Mesenteric abscess: Code(s): K65.1 - Peritoneal abscess Status: Acute Assessment and Plan: surgery on board small size on abx GI Consult Note Consult date/time: 08/30/21 11:08 Reason for consult: ileitis, abscess HPI: Latoya Doshi is a 36 year old female with no chronic major conditions who about six weeks ago had new onset of epigastric abdominal pain that was moderate to severe for which she came to the emergency room on June 29, 2021.? CT imaging at that time suggested ileitis, unclear if this was infectious or inflammatory bowel disease. Pain went away and she did not even take antibiotics that were prescribed, she never had follow-up in the office. About 6 days ago again with similar epigastric pain with radiation to both side but worse the right but 2 days prior admission had subjective fever and pain worsened. She had low-grade fever of 99.8 [place] [address].? Repeat CT scan of the abdomen and pelvis reviewed and showed ileitis likely Crohn's disease with a small mesenteric abscess of about 2 cm.? She has been admitted and started on IV antibiotics. Denies changes in bowel habits, no blood in stools, never had a colonoscopy, no family history of IBD. Also had mild elevated transaminases but today normal, hepatitis panel negative.?Only surgeries are C-sections Review of Systems Review of Systems: All systems reviewed & are unremarkable except as noted in HPI and below Constitutional: Constitutional: Reports as per HPI and Reports fever(s) Cardiovascular: Cardiovascular: Denies chest pain, Denies diaphoresis, Denies dyspnea and Denies paroxysmal nocturnal dyspnea Respiratory: Respiratory: Denies chest congestion, Denies cough and Denies dyspnea Gastrointestinal: Gastrointestinal: Reports abdominal pain ( Epigastric), Denies GI cramping, Denies diarrhea, Denies nausea and Denies vomiting Integumentary/Breasts: Skin/Breast: Denies lesions and Denies rash PMFSH Past Medical History Medical History (Updated 08/30/21 @ 11:15 by Martín Stephens MD) Mesenteric abscess Obesity Surgical History Surgical History Previous section Family History Family History Mother Hypertension Heart disease Acute myocardial infarction Grandparent Brain cancer Grandparent Diabetes mellitus Social History Social History (Updated 08/29/21 @ 15:18 by Harini Lorenzo RN) Social History: Patient lives at home with her Norman who will be her surrogate. They have 2 kids 1 boy 1 girl and no pets. 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
--- NOTE | 2021-08-30 12:15 | P.PNIM_ITS ---
Progress Note: A&P Assessment and Plan (1) Abdominal abscess: Status: Deleted Assessment and Plan: * CT of the abdominal and pelvis showed an abscess of 2.6 x 2.4 cm located in the ileum * General surgery has been consulted * Will continue Zosyn from ED * clear liquid diet * Dilaudid for pain medication * Zofran for nausea * White blood cell count 9.0 * Continue to trend white blood cell count * Blood cultures NGTD * Await cultures of abscess for further antibiotic coverage (2) Crohn disease: Code(s): K50.90 - Crohn's disease, unspecified, without complications Status: Deleted Assessment and Plan: * Abd/pel CT found an abscess in the ileum with inflamed small bowel loops most likely reflect Crohn's disease * Reports abdominal pain and fever * Zosyn continued * Prep for a colonoscopy * Medications for control have been discussed with the patient * Pain medications: Dilaudid 0.5mg IV Q4H PRN * Zofran for nausea * GI consulted thank you for help (3) Hypertension: Code(s): I10 - Essential (primary) hypertension Status: Acute Assessment and Plan: * BP elevated at 126/76 * Probably related to pain * trend blood pressure * consider adding therapy if no improvement (4) Transaminitis: Code(s): R74.01 - Elevation of levels of liver transaminase levels Status: Acute Assessment and Plan: * AST/ALT elevated at 31/30 * Continue to trend * Hep panel negative (5) Tachycardia: Code(s): R00.0 - Tachycardia, unspecified Status: Acute Assessment and Plan: * Resolved * HR is in the 90s * Seems to be secondary to infection and dehydration * Got one liter of fluids in the ed * Will repeat the bolus * Trend heart rate Time Spent With Patient Time with patient: Greater than 35 minutes Subjective Date/time seen: 08/30/21 1215 Interval history: 08/30/211214 Patient is doing well today. She stated that she has to go for a colonoscopy tomorrow which she does not seem excited about it. She denies any further abdominal pain, nausea, vomiting, diarrhea, constipation, weakness, or fatigue. 08/29/21? 07:45 Patient is a 36-year-old female with no significant medical history who presented the ED for abdominal pain and low-grade fever.? Patient stated that she has been battling this off and on for about 6 weeks.? However on Monday she woke up with what felt like fever and epigastric pain.? She stated that her pain was about a 6/10 and was sharp and stabbing and dull.? Patient stated that she was having some sweats and chills.? She did state that about 2 weeks ago she came to the hospital for the same thing and they discharged with Levaquin however she chalked it up to the gas and did not take the medication.? When the pain returned on Monday she did state that she took the Levaquin and has taken a total of 2 doses.? She stated that she tried taking 2 Tylenol without relief.? She also stated that she has been eating but very little.? Yesterday she stated that she had some meatloaf, green beans, mashed potatoes however food does not exacerbate her pain.? She did state that her pain has been progressively getting worse and was worse today.? Liver enzymes are also elevated with an AST of 55 and ALT of 36.? Patient denies any weakness, fatigue, shortness of breath, chest pain, nausea, vomiting, melena, hematemesis, headaches, visual changes, dizziness or falls.? CT of the abdomen and pelvis
--- NOTE | 2021-08-30 12:15 | PM.IMPN ---
Progress Note: A&P Assessment and Plan (1) Abdominal abscess: Status: Deleted Assessment and Plan: CT of the abdominal and pelvis showed an abscess of 2.6 x 2.4 cm located in the ileum General surgery has been consulted Will continue Zosyn from ED clear liquid diet Dilaudid for pain medication Zofran for nausea White blood cell count 9.0 Continue to trend white blood cell count Blood cultures NGTD Await cultures of abscess for further antibiotic coverage (2) Crohn disease: Code(s): K50.90 - Crohn's disease, unspecified, without complications Status: Deleted Assessment and Plan: Abd/pel CT found an abscess in the ileum with inflamed small bowel loops most likely reflect Crohn's disease Reports abdominal pain and fever Zosyn continued Prep for a colonoscopy Medications for control have been discussed with the patient Pain medications: Dilaudid 0.5mg IV Q4H PRN Zofran for nausea GI consulted thank you for help (3) Hypertension: Code(s): I10 - Essential (primary) hypertension Status: Acute Assessment and Plan: BP elevated at 126/76 Probably related to pain trend blood pressure consider adding therapy if no improvement (4) Transaminitis: Code(s): R74.01 - Elevation of levels of liver transaminase levels Status: Acute Assessment and Plan: AST/ALT elevated at 31/30 Continue to trend Hep panel negative (5) Tachycardia: Code(s): R00.0 - Tachycardia, unspecified Status: Acute Assessment and Plan: Resolved HR is in the 90s Seems to be secondary to infection and dehydration Got one liter of fluids in the ed Will repeat the bolus Trend heart rate Time Spent With Patient Time with patient: Greater than 35 minutes Subjective Date/time seen: 08/30/21 1215 Interval history: 08/30/21 1215 Patient is doing well today. She stated that she has to go for a colonoscopy tomorrow which she does not seem excited about it. She denies any further abdominal pain, nausea, vomiting, diarrhea, constipation, weakness, or fatigue. 08/29/21? 07:45 Patient is a 36-year-old female with no significant medical history who presented the ED for abdominal pain and low-grade fever.? Patient stated that she has been battling this off and on for about 6 weeks.? However on Monday she woke up with what felt like fever and epigastric pain.? She stated that her pain was about a 6/10 and was sharp and stabbing and dull.? Patient stated that she was having some sweats and chills.? She did state that about 2 weeks ago she came to the hospital for the same thing and they discharged with Levaquin however she chalked it up to the gas and did not take the medication.? When the pain returned on Monday she did state that she took the Levaquin and has taken a total of 2 doses.? She stated that she tried taking 2 Tylenol without relief.? She also stated that she has been eating but very little.? Yesterday she stated that she had some meatloaf, green beans, mashed potatoes however food does not exacerbate her pain.? She did state that her pain has been progressively getting worse and was worse today.? Liver enzymes are also elevated with an AST of 55 and ALT of 36.? Patient denies any weakness, fatigue, shortness of breath, chest pain, nausea, vomiting, melena, hematemesis, headaches, visual changes, dizziness or falls.? CT of the abdomen and pelvis with contrast was read as thickened appearance of the distal small bowel loops the level of the distal ileum with an abscess of 2.6 x 2.4 cm adjacent to the inflamed ileum.? Also looks to reflect Crohn's disease.? General surgery and GI has been consult.? Patient did also express concerns about dehydration and stated that she is very dry.? Heart rate is in the 120s.? Patient received 1 L of fluids in the ED. Exam Const: General: cooperative, no acute distress, well
--- NOTE | 2021-08-30 13:20 | PM.PNGS ---
Progress Note: A&P Assessment and Plan (1) Crohn's disease of ileum with abscess: Code(s): K50.014 - Crohn's disease of small intestine with abscess Status: Acute Assessment and Plan: Dr. Thompson consultation appreciated. No surgical indications at present. Continue IV antibiotics. Colonoscopy planned for tomorrow. Small-bowel follow-through planned as well. Subjective Subjective Date/Time Seen: 08/30/21 13:20 Patient reports: no new complaints, still having pain (Relieved by analgesics), tolerating liquids well and afebrile Review of Systems Review of Systems: All systems reviewed & are unremarkable except as noted in HPI and below (HPI) Constitutional: Constitutional: Denies chills, Denies fever(s) and Denies headache(s) Cardiovascular: Cardiovascular: Denies chest pain and Denies dyspnea Respiratory: Respiratory: Denies cough and Denies dyspnea Gastrointestinal: Gastrointestinal: Reports as per HPI Exam Const: General: cooperative, comfortable, alert and awake Nutritional Appearance: overweight Orientation/consciousness: patient oriented x3 and No confusion Limitations: no limitations GI: Inspection: normal to inspection, non-distended, obesity and no visible herniation GI Palp: Yes Soft to palpation, Yes Tenderness to palpation present (GI) (Right lower quadrant-hurts in epigastrium), Yes No hepatosplenomegaly present, No Hernia present and No Palpable mass present Auscultation: Hypoactive bowel sounds present Objective Data Vital Signs Vital Signs: Vital Signs - 24 hr 08/29/21 14:00 08/29/21 20:43 08/30/21 05:39 Temperature 37.2 C 36.6 C 36.4 C L Pulse Rate 91 96 93 Respiratory Rate 18 18 18 Blood Pressure 118/71 106/60 126/76 Pulse Oximetry 100 99 100 Intake/Output Intake/Output: Intake & Output 08/27/21 08/28/21 08/29/21 08/30/21 23:59 23:59 23:59 23:59 Intake Total 1250 1750 Output Total 400 Balance 850 1750 Meds/Results Medications: Active Medications Generic Name Dose Route Start Last Admin Trade Name Freq PRN Reason Stop Dose Admin Bisacodyl 20 mg 08/30/21 17:00 Bisacodyl 5 Mg Tablet Ec PO 08/30/21 17:01 ONCE ONE Hydromorphone HCl 0.5 mg 08/29/21 06:49 08/30/21 10:51 Hydromorphone Hcl Inj (*Crx) 1 Mg/Ml Syr IV PUSH 0.5 mg Q4H PRN Administration Pain Rated 7-10 Piperacillin/Tazobactam/Dextrose 3.375 gm in 50 mls @ 100 mls/hr 08/29/21 09:10 08/30/21 05:39 Zosyn 3.375 Gm/D5w 50ml Pm IVPB 100 mls/hr Q6H MIMI Administration Magnesium Citrate 300 ml 08/31/21 03:00 Magnesium Citrate 300 Ml Btl PO 08/31/21 03:01 ONCE ONE Ondansetron HCl 4 mg 08/29/21 06:49 Ondansetron Inj 4 Mg/2 Ml Vial IV PUSH Q4H PRN Nausea Pantoprazole Sodium 40 mg 08/29/21 09:00 08/30/21 10:52 Pantoprazole Sodium Iv 40 Mg Vial IV PUSH 40 mg Q12HR MIMI Administration Polyethylene Glycol 238 gm 08/30/21 17:00 Polyethylene Glycol 3350 238 Gm Bottle PO 08/30/21 17:01 ONCE ONE Radiology Results: ITS Impressions Abdomen/Pelvis CT 08/29/21 11:13 IMPRESSION: Distal and terminal ileitis, 2.6 x 2.4 cm adjacent abscess, likely secondary to Crohn's disease Labs Labs: Laboratory Results - last 24 hr 08/30/21 08/30/21 08/30/21 05:59 05:59 05:59 WBC 9.0 RBC 3.79 L Hgb 10.3 L Hct 33.5 L MCV 88.4 MCH 27.2 MCHC 30.7 L RDW 14.9 H Plt Count 284 MPV 8.9 Immature Gran % (Auto) 0.4 Neut % (Auto) 73.3 H Lymph % (Auto) 13.8 L [place] % (Auto) 10.4 H Eos % (Auto) 1.7 Baso % (Auto) 0.4 Lymph # (Auto) 1.24 [place] # (Auto) 0.9 H Eos # (Auto) 0.2 Baso # (Auto) 0.0 Abs Immat Gran (auto) 0.04 H Absolute Neuts (auto) 6.6 Absolute Nucleated RBC 0.0 Nucleated RBC % 0.0 Sodium 135 L Potassium 4.1 Chloride 104 Carbon Dioxide 26 Anion Gap 5 L BUN 8 Creatinine 1.10 H Estim Creat Clear Calc
[2021-08-30] MEDS: ONDANSETRON INJ 4 MG/2 ML VIAL IV PUSH (15:16)
[2021-08-30 15:30] VITALS: BP 130/72; PULSE 90; RESP 16; TEMP 35.8; O2SAT 100
[2021-08-30] MEDS: BISACODYL 5 MG TABLET EC 20 MG PO (18:40)
[2021-08-30] MEDS: polyethylene glycoL 3350 238 GM BOTTLE PO (18:40)
[2021-08-30 20:30] VITALS: BP 119/69; PULSE 92; RESP 18; TEMP 36.2; O2SAT 100
[2021-08-30] MEDS: HYDROmorphone HCL INJ (*CRX) 1 MG/ML SYR IV PUSH (21:58)
[2021-08-31] VITALS (7 sets, daily range): BP systolic 99–134; BP diastolic 53–82; PULSE 69–102; RESP 16–20; TEMP 36.4–37.1; O2SAT 100
[2021-08-31] MEDS: MAGNESIUM CITRATE 300 ML BTL PO (02:21)
[2021-08-31] MEDS: HYDROmorphone HCL INJ (*CRX) 1 MG/ML SYR IV PUSH (04:39)
[2021-08-31 05:58] LABS: Basophils Percent Auto 0.4 % (0.2-1.2); Eosinophils Absolute Auto 0.2 K/mm3 (0-0.3); Hematocrit 35.8 % (37.0-47.0); Hemoglobin 11.1 g/dL (12.0-15.0); Immature Granulocyte Absolute 0.03 K/mm3 (0.00-0.031); Immature Granulocyte Percent A 0.3 % (0-0.5); Lymphocytes Absolute Auto 1.27 K/mm3 (0.9-3.2); Lymphocytes Percent Auto 13.8 % (18.3-44.2); Mean Corpuscular Hemoglobin 27.4 pg (26-34); Mean Corpuscular Volume 88.4 fl (80-100); Mean Platelet Volume 9.1 fl (7.4-10.4); Neutrophils Absolute Auto 6.7 K/mm3 (1.3-6.7); Neutrophils Percent Auto 72.5 % (45.5-73.1); Platelet Count Result 324 k/mm3 (150-375); Red Blood Count 4.05 M/mm3 (4.2-5.4); White Blood Count 9.2 K/mm3 (4.5-10.0)
[2021-08-31 06:19] LABS: Alanine Aminotransferase 45 U/L (6-35); Albumin Level 4.2 g/dL (3.5-5.1); Alkaline Phosphatase 176 U/L (38-126); Anion Gap 9 mmol/L (8-16); Aspartate Amino Transferase 44 U/L (14-36); Blood Urea Nitrogen 5 mg/dL (7-17); Calcium 8.8 mg/dL (8.4-10.2); Carbon Dioxide 25 mmol/L (22-30); Chloride 103 mmol/L (98-107); Estimated CRCL calculation 75 ml/min; Estimated Glomerular Filt Rate > 60; Glucose 111 mg/dL (65-110); Magnesium 2.5 mg/dL (1.6-2.3); Potassium 3.8 mmol/L (3.4-5.0); Sodium 137 mmol/L (137-145)
[2021-08-31 06:30] LABS: CRP 13.4 mg/dL (<1.0)
[2021-08-31 07:29] LABS: Hepatitis B Surface Anti Res Positive
[2021-08-31 07:35] LABS: Erythrocyte Sedimentation Rate 108 mm/hr (0-20)
[2021-08-31] MEDS: PANTOPRAZOLE SODIUM IV 40 MG VIAL IV PUSH ×2 (08:26→20:27)
--- NOTE | 2021-08-31 09:00 | PM.IMPN ---
Progress Note: A&P Assessment and Plan (1) Abdominal abscess: Status: Deleted Assessment and Plan: CT of the abdominal and pelvis showed an abscess of 2.6 x 2.4 cm located in the ileum General surgery has been consulted Will continue Zosyn from ED clear liquid diet Dilaudid for pain medication Zofran for nausea White blood cell count 9.2 Continue to trend white blood cell count Blood cultures NGTD (2) Crohn disease: Code(s): K50.90 - Crohn's disease, unspecified, without complications Status: Deleted Assessment and Plan: Abd/pel CT found an abscess in the ileum with inflamed small bowel loops most likely reflect Crohn's disease Reports abdominal pain and fever Zosyn continued Colonoscopy revealed consistency with Crohn's CRP 13.4, ESR 108 Steroid initiated Medications for control have been discussed with the patient Pain medications: Dilaudid 0.5mg IV Q4H PRN Zofran for nausea GI consulted thank you for help (3) Hypertension: Code(s): I10 - Essential (primary) hypertension Status: Acute Assessment and Plan: BP elevated at 101/68 Probably related to pain trend blood pressure consider adding therapy if no improvement (4) Transaminitis: Code(s): R74.01 - Elevation of levels of liver transaminase levels Status: Acute Assessment and Plan: AST/ALT elevated at 44/45 Continue to trend Hep panel negative (5) Tachycardia: Code(s): R00.0 - Tachycardia, unspecified Status: Acute Assessment and Plan: Resolved HR is in the 90s Seems to be secondary to infection and dehydration Got one liter of fluids in the ed Will repeat the bolus Trend heart rate Time Spent With Patient Time with patient: Greater than 35 minutes Subjective Date/time seen: 08/31/21 09 Interval history: 08/31/21 09 Patient is doing ok, She is getting ready to go to get her colonoscopy. She seems a bit anxious however, she seems to be in good spirits. She denies any pain, chest pain, shortness of breath, nausea, vomiting, diarrhea, or constipation. EGD did find some swelling and edema. No colitis was noted. Steroids have been initiated. SBFT also ordered. 08/30/21 1215 Patient is doing well today. She stated that she has to go for a colonoscopy tomorrow which she does not seem excited about it. She denies any further abdominal pain, nausea, vomiting, diarrhea, constipation, weakness, or fatigue. 08/29/21? 07:45 Patient is a 36-year-old female with no significant medical history who presented the ED for abdominal pain and low-grade fever.? Patient stated that she has been battling this off and on for about 6 weeks.? However on Monday she woke up with what felt like fever and epigastric pain.? She stated that her pain was about a 6/10 and was sharp and stabbing and dull.? Patient stated that she was having some sweats and chills.? She did state that about 2 weeks ago she came to the hospital for the same thing and they discharged with Levaquin however she chalked it up to the gas and did not take the medication.? When the pain returned on Monday she did state that she took the Levaquin and has taken a total of 2 doses.? She stated that she tried taking 2 Tylenol without relief.? She also stated that she has been eating but very little.? Yesterday she stated that she had some meatloaf, green beans, mashed potatoes however food does not exacerbate her pain.? She did state that her pain has been progressively getting worse and was worse today.? Liver enzymes are also elevated with an AST of 55 and ALT of 36.? Patient denies any weakness, fatigue, shortness of breath, chest pain, nausea, vomiting, melena, hematemesis, headaches, visual changes, dizziness or falls.? CT of the abdomen and pelvis with contrast was read as thickened appearance of the distal small bowel loops the level of
--- NOTE | 2021-08-31 09:00 | P.PNIM_ITS ---
Progress Note: A&P Assessment and Plan (1) Abdominal abscess: Status: Deleted Assessment and Plan: * CT of the abdominal and pelvis showed an abscess of 2.6 x 2.4 cm located in the ileum * General surgery has been consulted * Will continue Zosyn from ED * clear liquid diet * Dilaudid for pain medication * Zofran for nausea * White blood cell count 9.2 * Continue to trend white blood cell count * Blood cultures NGTD (2) Crohn disease: Code(s): K50.90 - Crohn's disease, unspecified, without complications Status: Deleted Assessment and Plan: * Abd/pel CT found an abscess in the ileum with inflamed small bowel loops most likely reflect Crohn's disease * Reports abdominal pain and fever * Zosyn continued * Colonoscopy revealed consistency with Crohn's * CRP 13.4, ESR 108 * Steroid initiated * Medications for control have been discussed with the patient * Pain medications: Dilaudid 0.5mg IV Q4H PRN * Zofran for nausea * GI consulted thank you for help (3) Hypertension: Code(s): I10 - Essential (primary) hypertension Status: Acute Assessment and Plan: * BP elevated at 101/68 * Probably related to pain * trend blood pressure * consider adding therapy if no improvement (4) Transaminitis: Code(s): R74.01 - Elevation of levels of liver transaminase levels Status: Acute Assessment and Plan: * AST/ALT elevated at 44/45 * Continue to trend * Hep panel negative (5) Tachycardia: Code(s): R00.0 - Tachycardia, unspecified Status: Acute Assessment and Plan: * Resolved * HR is in the 90s * Seems to be secondary to infection and dehydration * Got one liter of fluids in the ed * Will repeat the bolus * Trend heart rate Time Spent With Patient Time with patient: Greater than 35 minutes Subjective Date/time seen: 08/31/21 0900 Interval history: 08/31/21 0900 Patient is doing ok, She is getting ready to go to get her colonoscopy. She seems a bit anxious however, she seems to be in good spirits. She denies any pain, chest pain, shortness of breath, nausea, vomiting, diarrhea, or constipation. EGD did find some swelling and edema. No colitis was noted. Steroids have been initiated. SBFT also ordered. 08/30/21 1215 Patient is doing well today. She stated that she has to go for a colonoscopy tomorrow which she does not seem excited about it. She denies any further abdominal pain, nausea, vomiting, diarrhea, constipation, weakness, or fatigue. 08/29/21? 07:45 Patient is a 36-year-old female with no significant medical history who presented the ED for abdominal pain and low-grade fever.? Patient stated that she has been battling this off and on for about 6 weeks.? However on Monday she woke up with what felt like fever and epigastric pain.? She stated that her pain was about a 6/10 and was sharp and stabbing and dull.? Patient stated that she was having some sweats and chills.? She did state that about 2 weeks ago she came to the hospital for the same thing and they discharged with Levaquin however she chalked it up to the gas and did not take the medication.? When the pain returned on Monday she did state that she took the Levaquin and has taken a total of 2 doses.? She stated that she tried taking 2 Tylenol without relief.? She also stated that she has been eating but very little.? Yesterday she stated that she had some m
[2021-08-31] MEDS: LACTATED RINGERS 1,000 ML 150 ML IV CONT (09:49)
--- NOTE | 2021-08-31 15:07 | PM.PNGS ---
Progress Note: A&P Assessment and Plan (1) Crohn's disease of ileum with abscess: Code(s): K50.014 - Crohn's disease of small intestine with abscess Status: Acute Assessment and Plan: Colonoscopy today showed ileitis consistent with Crohn's affecting the terminal ileum and complicated with a small abscess. Continue IV antibiotics and IV steroids were added. SBFT showed multiple distal ileal and terminal ileal strictured segments with mucosal irregularity and thickening, consistent with Crohn's disease. Contrast reached the colon within 1.5 hours. Okay to start liquids now and advance diet as tolerated. Plan I have discussed the patient's case and plan of care with Dr. Grimes. Subjective Subjective Date/Time Seen: 08/31/21 15:07 Patient reports: no new complaints, feels better and afebrile Interval history: This is a 36 yo female who presented to the ER with epigastric abdominal pain and workup revealed CT evidence of ileitis with a small intra-abdominal abscess. She was admitted and started on IV antibiotics. GI consulted and she underwent a colonoscopy today that showed ileitis with multiple biopsies taken. Chart reviewed. Patient seen and examined. She reports feeling well. She tolerated the bowel prep well yesterday. Has not had any liquids yet since being back from the colonoscopy. Denies any abdominal pain or nausea. No other complaints at this time. Review of Systems Review of Systems: All systems reviewed & are unremarkable except as noted in HPI and below Exam Const: General: comfortable, no acute distress and awake Orientation/consciousness: patient oriented x3 GI: Inspection: non-distended and obesity GI Palp: Yes Soft to palpation, Yes Tenderness to palpation present (GI) (mild TTP in RLQ), No Guarding due to palpation present (GI) and Yes No hepatosplenomegaly present Auscultation: normal bowel sounds Psych: Insight: Good insight present (Psych) Objective Data Vital Signs Vital Signs: Vital Signs - 24 hr 08/30/21 15:30 08/30/21 20:30 08/31/21 05:39 Temperature 96.5 F L 97.1 F L 98.8 F Pulse Rate 90 92 83 Respiratory Rate 16 18 16 Blood Pressure 130/72 119/69 120/60 Pulse Oximetry 100 100 100 Oxygen Delivery 08/31/21 08:00 08/31/21 09:41 08/31/21 10:43 Temperature 97.6 F Pulse Rate 95 80 Respiratory Rate 18 20 Blood Pressure 117/71 102/53 L Pulse Oximetry 100 100 Oxygen Delivery Room Air Room Air Room Air 08/31/21 10:53 08/31/21 11:03 Temperature Pulse Rate 69 69 Respiratory Rate 18 18 Blood Pressure 99/62 L 101/68 Pulse Oximetry 100 100 Oxygen Delivery Room Air Room Air Intake/Output Intake/Output: Intake & Output 08/28/21 08/29/21 08/30/21 08/31/21 23:59 23:59 23:59 23:59 Intake Total 1250 2500 550 Output Total 400 Balance 850 2500 550 Meds/Results Medications: Active Medications Generic Name Dose Route Start Last Admin Trade Name Freq PRN Reason Stop Dose Admin Hydromorphone HCl 1 mg 08/30/21 18:52 08/31/21 04:39 Hydromorphone Hcl Inj (*Crx) 1 Mg/Ml Syr IV PUSH 1 mg Q4H PRN Administration Pain Rated 7-10 Piperacillin/Tazobactam/Dextrose 3.375 gm in 50 mls @ 100 mls/hr 08/29/21 09:10 08/31/21 05:52 Zosyn 3.375 Gm/D5w 50ml Pm IVPB 100 mls/hr Q6H MIMI Administration Lactated Ringer's 1,000 mls @ 150 mls/hr 08/31/21 09:45 08/31/21 10:57 Lr - Lactated Ringers Iv IV CONT Infused .Q6H40M MIMI Infusion Methylprednisolone Sodium Succinate 40 mg 08/31/21 11:10 Methylprednisolone Sod Succ 40 Mg Vial IV PUSH Q12HR MIMI Ondansetron HCl 4 mg 08/29/21 06:49 08/30/21 15:16 Ondansetron Inj 4 Mg/2 Ml Vial IV PUSH 4 mg Q4H PRN Administration Nausea Pantoprazole Sodium 40 mg 08/29/21 09:00 08/31/21 08:26 Pantoprazole Sodium Iv 40 Mg Vial IV PUSH 40 mg Q12HR MIMI Administration Radiology Results: ITS Impressions Abdomen/Pelvis CT 08/29/21 11:13 IMPRESSION:
--- NOTE | 2021-08-31 15:50 | WPDCDIQUERY2 ---
CDI Query Clarification Request 08/30 Gastroenterology documented: Sepsis: ?Code(s): A41.9 - Sepsis, unspecified organism ?Status:?Acute ?Assessment and Plan: better, on treatment Documentation shows patient with abdominal abscess, one time temp. 08/30 of 96.5, Pulse 152, Resp. 25, patient is on IVF's LR 150 mls/hr and Zosyn 150 mls/hr IVPB Q6H. Blood Cultures pending With this documentation taken from clinicals, do you agree with diagnosis of Sepsis or is there a more specific diagnosis for above findings, or unable to determine. <Carmelita Meyers - Last Filed: 08/31/21 16:03> Provider Comments She does meet sirs criteria for sepsis with the above criteria <KARLA Johnston - Last Filed: 09/01/21 06:39>
[2021-08-31] MEDS: methylPREDNISolone SOD SUCC 40 MG VIAL IV PUSH ×2 (15:59→20:27)
--- NOTE | 2021-08-31 16:29 | PM.PNGS ---
Progress Note: A&P Assessment and Plan (1) Crohn's disease of ileum with abscess: Code(s): K50.014 - Crohn's disease of small intestine with abscess Status: Acute Assessment and Plan: Colonoscopy was negative for colonic disease. Terminal ileum appearance consistent with Crohn's disease. Upper GI small-bowel follow-through showed evidence of active disease with some narrowed areas in the distal ileum consistent with Crohn's disease as well. Patient receiving IV Zosyn as well as steroids intravenously. Her pain has been improving. Will follow along with you but it appears this will resolve with medical treatment. Subjective Subjective Date/Time Seen: 08/31/21 16:29 Patient reports: pain is less ( Per nursing and hospitalist) and afebrile Interval history: patient had gone down for colonoscopy when I came by to see her on rounds. Objective Data Vital Signs Vital Signs: Vital Signs - 24 hr 08/30/21 20:30 08/31/21 05:39 08/31/21 08:00 Temperature 36.2 C L 37.1 C Pulse Rate 92 83 Respiratory Rate 18 16 Blood Pressure 119/69 120/60 Pulse Oximetry 100 100 Oxygen Delivery Room Air 08/31/21 09:41 08/31/21 10:43 08/31/21 10:53 Temperature 36.4 C Pulse Rate 95 80 69 Respiratory Rate 18 20 18 Blood Pressure 117/71 102/53 L 99/62 L Pulse Oximetry 100 100 100 Oxygen Delivery Room Air Room Air Room Air 08/31/21 11:03 08/31/21 15:11 Temperature 36.8 C Pulse Rate 69 78 Respiratory Rate 18 16 Blood Pressure 101/68 134/82 Pulse Oximetry 100 100 Oxygen Delivery Room Air Intake/Output Intake/Output: Intake & Output 08/28/21 08/29/21 08/30/21 08/31/21 23:59 23:59 23:59 23:59 Intake Total 1250 2500 550 Output Total 400 Balance 850 2500 550 Meds/Results Medications: Active Medications Generic Name Dose Route Start Last Admin Trade Name Freq PRN Reason Stop Dose Admin Hydromorphone HCl 1 mg 08/30/21 18:52 08/31/21 04:39 Hydromorphone Hcl Inj (*Crx) 1 Mg/Ml Syr IV PUSH 1 mg Q4H PRN Administration Pain Rated 7-10 Piperacillin/Tazobactam/Dextrose 3.375 gm in 50 mls @ 100 mls/hr 08/29/21 09:10 08/31/21 15:19 Zosyn 3.375 Gm/D5w 50ml Pm IVPB Not Given Q6H MIMI Methylprednisolone Sodium Succinate 40 mg 08/31/21 11:10 08/31/21 15:59 Methylprednisolone Sod Succ 40 Mg Vial IV PUSH 40 mg Q12HR MIMI Administration Ondansetron HCl 4 mg 08/29/21 06:49 08/30/21 15:16 Ondansetron Inj 4 Mg/2 Ml Vial IV PUSH 4 mg Q4H PRN Administration Nausea Pantoprazole Sodium 40 mg 08/29/21 09:00 08/31/21 08:26 Pantoprazole Sodium Iv 40 Mg Vial IV PUSH 40 mg Q12HR MIMI Administration Radiology Results: ITS Impressions Abdomen/Pelvis CT 08/29/21 11:13 IMPRESSION: Distal and terminal ileitis, 2.6 x 2.4 cm adjacent abscess, likely secondary to Crohn's disease Upper GI and Small Bowel X-Ray 08/31/21 15:00 IMPRESSION: Crohn's disease with at least several distal ileal and terminal ileal strictured segments with mucosal fold irregularity and thickening Contrast material reaches the colon within 1.5 hours. Labs Labs: Laboratory Results - last 24 hr 08/31/21 08/31/21 08/31/21 05:33 05:33 05:33 WBC 9.2 RBC 4.05 L Hgb 11.1 L Hct 35.8 L MCV 88.4 MCH 27.4 MCHC 31.0 L RDW 15.0 H Plt Count 324 MPV 9.1 Immature Gran % (Auto) 0.3 Neut % (Auto) 72.5 Lymph % (Auto) 13.8 L [place] % (Auto) 11.0 H Eos % (Auto) 2.0 Baso % (Auto) 0.4 Lymph # (Auto) 1.27 [place] # (Auto) 1.0 H Eos # (Auto) 0.2 Baso # (Auto) 0.0 Abs Immat Gran (auto) 0.03 Absolute Neuts (auto) 6.7 Absolute Nucleated RBC 0.0 Nucleated RBC % 0.0 ESR 108 H Sodium 137 Potassium 3.8 Chloride 103 Carbon Dioxide 25 Anion Gap 9 BUN 5 L Creatinine 1.00 Estim Creat Clear Calc 75 Estimated GFR > 60 Glucose 111 H Calcium 8.8 Magnesium
[2021-09-01] VITALS: BP 126/76; PULSE 88; RESP 16; TEMP 36.7; O2SAT 100
[2021-09-01 04:00] VITALS: BP 112/87; PULSE 57; RESP 16; TEMP 36.5; O2SAT 99
[2021-09-01 07:54] LABS: Basophils Percent Auto 0.1 % (0.2-1.2); Hemoglobin 10.9 g/dL (12.0-15.0); Immature Granulocyte Absolute 0.04 K/mm3 (0.00-0.031); Immature Granulocyte Percent A 0.5 % (0-0.5); Lymphocytes Percent Auto 6.2 % (18.3-44.2); Mean Corpuscular Hemoglobin 28.3 pg (26-34); Mean Corpuscular Volume 85.7 fl (80-100); Monocytes Absolute Auto 0.4 K/mm3 (0.1-0.6); Neutrophils Absolute Auto 7.1 K/mm3 (1.3-6.7); Neutrophils Percent Auto 88.2 % (45.5-73.1); Platelet Count Result 306 k/mm3 (150-375); Red Blood Count 3.85 M/mm3 (4.2-5.4); Red Cell Distribution Width 14.6 % (11.5-14.5); White Blood Count 8.1 K/mm3 (4.5-10.0)
[2021-09-01 08:05] LABS: Alanine Aminotransferase 56 U/L (6-35); Alkaline Phosphatase 189 U/L (38-126); Anion Gap 6 mmol/L (8-16); Aspartate Amino Transferase 59 U/L (14-36); Bilirubin,Total 0.4 mg/dL (0.2-1.3); Blood Urea Nitrogen 8 mg/dL (7-17); Calcium 8.6 mg/dL (8.4-10.2); Carbon Dioxide 23 mmol/L (22-30); Chloride 108 mmol/L (98-107); Estimated CRCL calculation 83 ml/min; Estimated Glomerular Filt Rate > 60; Glucose 205 mg/dL (65-110); Potassium 4.2 mmol/L (3.4-5.0); Sodium 137 mmol/L (137-145)
[2021-09-01] MEDS: PANTOPRAZOLE SODIUM IV 40 MG VIAL IV PUSH ×2 (09:06→22:14)
[2021-09-01] MEDS: methylPREDNISolone SOD SUCC 40 MG VIAL IV PUSH ×2 (09:06→22:14)
--- NOTE | 2021-09-01 10:25 | P.PNAN_ITS ---
Anes - Prog Note Post-Op Date/Time: 09/01/21 10:25 Vital Signs: Last Vital Signs Temp 36.5 C 09/01/21 04:00 Pulse 57 L 09/01/21 04:00 Resp 16 09/01/21 04:00 BP 112/87 09/01/21 04:00 Pulse Ox 99 09/01/21 04:00 O2 Del Method Room Air 08/31/21 11:03 Pain Score (VAS): 0 I/O: Intake & Output 08/31/21 09/01/21 09/01/21 23:59 07:59 15:59 Intake Total 340 480 Balance 340 480 Laboratory Tests 09/01/21 07:45 09/01/21 07:45 09/01/21 09/01/21 07:45 07:45 WBC 8.1 RBC 3.85 L Hgb 10.9 L Hct 33.0 L MCV 85.7 MCH 28.3 MCHC 33.0 RDW 14.6 H Plt Count 306 MPV 9.0 Immature Gran % (Auto) 0.5 Neut % (Auto) 88.2 H Lymph % (Auto) 6.2 L [place] % (Auto) 5.0 Eos % (Auto) 0.0 Baso % (Auto) 0.1 L Lymph # (Auto) 0.50 L [place] # (Auto) 0.4 Eos # (Auto) 0.0 Baso # (Auto) 0.0 Abs Immat Gran (auto) 0.04 H Absolute Neuts (auto) 7.1 H Absolute Nucleated RBC 0.0 Nucleated RBC % 0.0 Sodium 137 Potassium 4.2 Chloride 108 H Carbon Dioxide 23 Anion Gap 6 L BUN 8 Creatinine 0.90 Estim Creat Clear Calc 83 Estimated GFR > 60 Glucose 205 H Calcium 8.6 Total Bilirubin 0.4 AST 59 H ALT 56 H Alkaline Phosphatase 189 H Total Protein 8.0 Albumin 4.0 Patient Feedback: Patient satisfied with anesthetic care.
--- NOTE | 2021-09-01 10:32 | PM.PNGS ---
Progress Note: A&P Assessment and Plan (1) Crohn's disease of ileum with abscess: Code(s): K50.014 - Crohn's disease of small intestine with abscess Status: Acute Assessment and Plan: Continues to improve. Advance to a low fiber diet. Will consult dietitian for education. Continue IV steroids and antibiotics per GI. No indication for surgery, will sign off at this time. Follow-up with GI as recommended after discharge. Plan I have discussed the patient's case and plan of care with Dr. Grimes. Subjective Subjective Date/Time Seen: 09/01/21 10:00 Patient reports: no new complaints, feels better, pain is less, tolerating liquids well, flatus and afebrile Interval history: Patient seen and examined. She reports feeling much better today. She did not get much sleep and felt jittery last night, which she attributed to the IV steroids. Denies any abdominal pain, nausea, or vomiting. Review of Systems Review of Systems: All systems reviewed & are unremarkable except as noted in HPI and below Exam Const: General: no acute distress and awake Orientation/consciousness: patient oriented x3 GI: Inspection: normal to inspection and non-distended GI Palp: Yes Soft to palpation, Yes Tenderness to palpation present (GI) (very mild TTP in LLQ, overall reportedly much improved) and No Guarding due to palpation present (GI) Auscultation: normal bowel sounds Psych: Insight: Good insight present (Psych) Objective Data Vital Signs Vital Signs: Vital Signs - 24 hr 08/31/21 10:43 08/31/21 10:53 08/31/21 11:03 Temperature Pulse Rate 80 69 69 Respiratory Rate 20 18 18 Blood Pressure 102/53 L 99/62 L 101/68 Pulse Oximetry 100 100 100 Oxygen Delivery Room Air Room Air Room Air 08/31/21 15:11 08/31/21 20:00 09/01/21 00:00 Temperature 98.3 F 98.0 F 98.1 F Pulse Rate 78 102 H 88 Respiratory Rate 16 16 16 Blood Pressure 134/82 124/81 126/76 Pulse Oximetry 100 100 100 Oxygen Delivery 09/01/21 04:00 Temperature 97.7 F Pulse Rate 57 L Respiratory Rate 16 Blood Pressure 112/87 Pulse Oximetry 99 Oxygen Delivery Intake/Output Intake/Output: Intake & Output 08/29/21 08/30/21 08/31/21 07/06/22 23:59 23:59 23:59 23:59 Intake Total 1250 2500 940 480 Output Total 400 Balance 850 2500 940 480 Meds/Results Medications: Active Medications Generic Name Dose Route Start Last Admin Trade Name Freq PRN Reason Stop Dose Admin Hydromorphone HCl 1 mg 08/30/21 18:52 08/31/21 04:39 Hydromorphone Hcl Inj (*Crx) 1 Mg/Ml Syr IV PUSH 1 mg Q4H PRN Administration Pain Rated 7-10 Piperacillin/Tazobactam/Dextrose 3.375 gm in 50 mls @ 100 mls/hr 08/29/21 09:10 09/01/21 05:35 Zosyn 3.375 Gm/D5w 50ml Pm IVPB 100 mls/hr Q6H MIMI Administration Methylprednisolone Sodium Succinate 40 mg 08/31/21 11:10 09/01/21 09:06 Methylprednisolone Sod Succ 40 Mg Vial IV PUSH 40 mg Q12HR MIMI Administration Ondansetron HCl 4 mg 08/29/21 06:49 08/30/21 15:16 Ondansetron Inj 4 Mg/2 Ml Vial IV PUSH 4 mg Q4H PRN Administration Nausea Pantoprazole Sodium 40 mg 08/29/21 09:00 09/01/21 09:06 Pantoprazole Sodium Iv 40 Mg Vial IV PUSH 40 mg Q12HR MIMI Administration Radiology Results: ITS Impressions Abdomen/Pelvis CT 08/29/21 11:13 IMPRESSION: Distal and terminal ileitis, 2.6 x 2.4 cm adjacent abscess, likely secondary to Crohn's disease Upper GI and Small Bowel X-Ray 08/31/21 15:00 IMPRESSION: Crohn's disease with at least several distal ileal and terminal ileal strictured segments with mucosal fold irregularity and thickening Contrast material reaches the colon within 1.5 hours. Labs Labs: Laboratory Results - last 24 hr 09/01/21 09/01/21 07:45 07:45 WBC 8.1 RBC 3.85 L Hgb 10.9 L Hct 33.0 L MCV 85.7 MCH 28.3 MCHC 33.0 RDW 14.6 H Plt Count 306 MPV 9.0 Immature Gran % (Auto) 0.5 Neut % (Auto)
--- NOTE | 2021-09-01 11:30 | PM.IMPN ---
Progress Note: A&P Assessment and Plan (1) Abdominal abscess: Status: Deleted Assessment and Plan: CT of the abdominal and pelvis showed an abscess of 2.6 x 2.4 cm located in the ileum General surgery has been consulted Will continue Zosyn from ED Diet advanced to low fiber Dilaudid for pain medication Zofran for nausea White blood cell count 8.1 Continue to trend white blood cell count Blood cultures NGTD (2) Crohn disease: Code(s): K50.90 - Crohn's disease, unspecified, without complications Status: Deleted Assessment and Plan: Abd/pel CT found an abscess in the ileum with inflamed small bowel loops most likely reflect Crohn's disease Reports abdominal pain and fever Zosyn continued Colonoscopy revealed consistency with Crohn's CRP 13.4, ESR 108 Steroid initiated Medications for control have been discussed with the patient Pain medications: Dilaudid 0.5mg IV Q4H PRN Zofran for nausea GI consulted thank you for help (3) Hypertension: Code(s): I10 - Essential (primary) hypertension Status: Acute Assessment and Plan: BP elevated at 112/87 Probably related to pain trend blood pressure consider adding therapy if no improvement (4) Transaminitis: Code(s): R74.01 - Elevation of levels of liver transaminase levels Status: Acute Assessment and Plan: AST/ALT elevated at 59/56, trending up Continue to trend Hep panel negative Time Spent With Patient Time with patient: Greater than 35 minutes Subjective Date/time seen: 09/01/21 11:30 Interval history: 09/01/21 1130 Patient is doing okay today. She stated that she was have any pain however whenever we were talking and just chatting about thing she started have major pain and did stand up. She stated that sometimes it dissipates and sometimes walking around helps as well. She stated that she has not had any pain medicine since yesterday. She was trying to eat however it seems like she might not be tolerating her diet at this time. She would like to be discharged overall think that is a possibility as she is not tolerating the diet and still having severe pain that she rates up to a 6. Denies any chest pain, shortness of breath, nausea, vomiting, diarrhea, constipation, weakness or fatigue. 08/31/21 0900 Patient is doing ok, She is getting ready to go to get her colonoscopy. She seems a bit anxious however, she seems to be in good spirits. She denies any pain, chest pain, shortness of breath, nausea, vomiting, diarrhea, or constipation. EGD did find some swelling and edema. No colitis was noted. Steroids have been initiated. SBFT also ordered. 08/30/21 1215 Patient is doing well today. She stated that she has to go for a colonoscopy tomorrow which she does not seem excited about it. She denies any further abdominal pain, nausea, vomiting, diarrhea, constipation, weakness, or fatigue. 08/29/21? 07:45 Patient is a 36-year-old female with no significant medical history who presented the ED for abdominal pain and low-grade fever.? Patient stated that she has been battling this off and on for about 6 weeks.? However on Monday she woke up with what felt like fever and epigastric pain.? She stated that her pain was about a 6/10 and was sharp and stabbing and dull.? Patient stated that she was having some sweats and chills.? She did state that about 2 weeks ago she came to the hospital for the same thing and they discharged with Levaquin however she chalked it up to the gas and did not take the medication.? When the pain returned on Monday she did state that she took the Levaquin and has taken a total of 2 doses.? She stated that she tried taking 2 Tylenol without relief.? She also stated that she has been eating but very little.? Yesterday she stated that she had some meatloaf, green beans, mashed potatoes however food does not exacer
[2021-09-01] MEDS: HYDROmorphone HCL INJ (*CRX) 1 MG/ML SYR IV PUSH ×2 (13:01→23:17)
--- NOTE | 2021-09-01 13:25 | PCNSR ---
On 09/01/21, the student, Yohana Palm, provided care and completed [facility] documentation on this patient. I have reviewed the student's documentation and agree with the findings.
[2021-09-01 14:00] VITALS: BP 106/53; PULSE 68; RESP 18; TEMP 36.6; O2SAT 99
--- NOTE | 2021-09-01 14:03 | WPDGIPROGNO ---
Progress Note: A&P Assessment and Plan (1) Crohn's disease of ileum with abscess: Code(s): K50.014 - Crohn's disease of small intestine with abscess Status: Acute Assessment and Plan: highly consistent with colonoscopy (normal colon but affecting terminal ileum with stricture- pending bx) but also abnormal SBFT HBV negative, pending TB status on iv steroids- probably tomorrow we can switch to oral prednisone with slow taper and could go home patient agrees to start biologics (prefers SQ- probably will use either humira or skyrizi)- she will follow-up soon in office and will start process (2) Mesenteric abscess: Code(s): K65.1 - Peritoneal abscess Status: Acute Assessment and Plan: on iv antibiotics, doing better no need of surgery at this time (3) Transaminitis: Code(s): R74.01 - Elevation of levels of liver transaminase levels Status: Acute (4) Sepsis: Code(s): A41.9 - Sepsis, unspecified organism Status: Acute Assessment and Plan: resolved Subjective Date/time seen: 09/01/21 14:03 Interval history: she was pain free for 24 hours but again required pain med recently but overall much better since admission. Review of Systems Review of Systems: All systems reviewed & are unremarkable except as noted in HPI and below Exam Const: General: comfortable and no acute distress HENMT: General nose exam: Normal nares present Eyes: General: appearance normal, both eyes and all related structures Neck: Neck: no JVD Resp: Auscultation: clear to auscultation bilaterally Cardio: Rate: regular rate Rhythm: regular rhythm GI: Inspection: non-distended GI Palp: Yes Soft to palpation and No Tenderness to palpation present (GI) Auscultation: normal bowel sounds Skin: General skin exam: normal color Neuro: General: gait normal Speech: normal speech Extrem: General: normal to inspection Psych: Mental Status: mental status grossly normal Objective Data Vital Signs Vital Signs: Vital Signs - 24 hr 08/31/21 15:11 08/31/21 20:00 09/01/21 00:00 Temperature 98.3 F 98.0 F 98.1 F Pulse Rate 78 102 H 88 Respiratory Rate 16 16 16 Blood Pressure 134/82 124/81 126/76 Pulse Oximetry 100 100 100 Oxygen Delivery 09/01/21 04:00 09/01/21 08:00 Temperature 97.7 F Pulse Rate 57 L Respiratory Rate 16 Blood Pressure 112/87 Pulse Oximetry 99 Oxygen Delivery Room Air Intake/Output Intake/Output: Intake & Output 08/29/21 08/30/21 08/31/21 09/01/21 23:59 23:59 23:59 23:59 Intake Total 1250 2500 940 530 Output Total 400 Balance 850 2500 940 530 Meds/Results Medications: Active Medications Generic Name Dose Route Start Last Admin Trade Name Freq PRN Reason Stop Dose Admin Hydromorphone HCl 1 mg 08/30/21 18:52 09/01/21 13:01 Hydromorphone Hcl Inj (*Crx) 1 Mg/Ml Syr IV PUSH 1 mg Q4H PRN Administration Pain Rated 7-10 Piperacillin/Tazobactam/Dextrose 3.375 gm in 50 mls @ 100 mls/hr 08/29/21 09:10 09/01/21 13:02 Zosyn 3.375 Gm/D5w 50ml Pm IVPB 100 mls/hr Q6H MIMI Administration Methylprednisolone Sodium Succinate 40 mg 08/31/21 11:10 09/01/21 09:06 Methylprednisolone Sod Succ 40 Mg Vial IV PUSH 40 mg Q12HR MIMI Administration Ondansetron HCl 4 mg 08/29/21 06:49 08/30/21 15:16 Ondansetron Inj 4 Mg/2 Ml Vial IV PUSH 4 mg Q4H PRN Administration Nausea Pantoprazole Sodium 40 mg 08/29/21 09:00 09/01/21 09:06 Pantoprazole Sodium Iv 40 Mg Vial IV PUSH 40 mg Q12HR MIMI Administration Radiology Results: ITS Impressions Abdomen/Pelvis CT 08/29/21 11:13 IMPRESSION: Distal and terminal ileitis, 2.6 x 2.4 cm adjacent abscess, likely secondary to Crohn's disease Upper GI and Small Bowel X-Ray 08/31/21 15:00 IMPRESSION: Crohn's disease with at least several distal ileal and terminal ileal strictured segments with mucosal fold irregularity and thickening
[2021-09-01 20:43] VITALS: BP 111/78; PULSE 51; RESP 18; TEMP 36.6; O2SAT 100
[2021-09-02 04:24] VITALS: BP 112/78; PULSE 62; RESP 14; TEMP 36.4; O2SAT 100
[2021-09-02 06:28] LABS: Basophils Percent Auto 0.1 % (0.2-1.2); Hematocrit 33.1 % (37.0-47.0); Hemoglobin 10.2 g/dL (12.0-15.0); Immature Granulocyte Percent A 0.7 % (0-0.5); Lymphocytes Absolute Auto 0.68 K/mm3 (0.9-3.2); Mean Corpuscular HGB Conc 30.8 g/dl (32-36); Mean Corpuscular Hemoglobin 27.2 pg (26-34); Mean Corpuscular Volume 88.3 fl (80-100); Mean Platelet Volume 8.8 fl (7.4-10.4); Monocytes Absolute Auto 0.4 K/mm3 (0.1-0.6); Neutrophils Absolute Auto 12.4 K/mm3 (1.3-6.7); Neutrophils Percent Auto 91.2 % (45.5-73.1); Platelet Count Result 317 k/mm3 (150-375); Red Blood Count 3.75 M/mm3 (4.2-5.4); Red Cell Distribution Width 15.2 % (11.5-14.5); White Blood Count 13.6 K/mm3 (4.5-10.0)
[2021-09-02 06:41] LABS: Alanine Aminotransferase 52 U/L (6-35); Alkaline Phosphatase 160 U/L (38-126); Anion Gap 9 mmol/L (8-16); Aspartate Amino Transferase 35 U/L (14-36); Bilirubin,Total 0.2 mg/dL (0.2-1.3); Blood Urea Nitrogen 10 mg/dL (7-17); Calcium 8.4 mg/dL (8.4-10.2); Carbon Dioxide 27 mmol/L (22-30); Chloride 106 mmol/L (98-107); Estimated CRCL calculation 83 ml/min; Estimated Glomerular Filt Rate > 60; Glucose 139 mg/dL (65-110); Magnesium 2.3 mg/dL (1.6-2.3); Potassium 4.5 mmol/L (3.4-5.0); Sodium 142 mmol/L (137-145)
[2021-09-02] MEDS: methylPREDNISolone SOD SUCC 40 MG VIAL IV PUSH (09:45)
[2021-09-02] MEDS: PANTOPRAZOLE SODIUM IV 40 MG VIAL IV PUSH (09:45)
[2021-09-02 10:13] VITALS: O2SAT 97
--- NOTE | 2021-09-02 11:30 | P.DS_ITS ---
DS: Admitting Diagnosis Discharge Date 09/02/21 1130 Admitting Diagnosis Crohn's disease/abdominal abscess DS: Discharge Diagnosis Discharge Diagnosis (1) Abdominal abscess: Status: Deleted Assessment and Plan: * CT of the abdominal and pelvis showed an abscess of 2.6 x 2.4 cm located in the ileum * General surgery has been consulted * Will continue Zosyn from ED * Diet advanced to low fiber * Dilaudid for pain medication * Zofran for nausea * White blood cell count 8.1 * Continue to trend white blood cell count * Blood cultures NGTD (2) Crohn disease: Code(s): K50.90 - Crohn's disease, unspecified, without complications Status: Deleted Assessment and Plan: * Abd/pel CT found an abscess in the ileum with inflamed small bowel loops most likely reflect Crohn's disease * Reports abdominal pain and fever * Zosyn continued * Colonoscopy revealed consistency with Crohn's * CRP 13.4, ESR 108 * Steroid initiated * Medications for control have been discussed with the patient * Pain medications: Dilaudid 0.5mg IV Q4H PRN * Zofran for nausea * GI consulted thank you for help (3) Hypertension: Code(s): I10 - Essential (primary) hypertension Status: Acute Assessment and Plan: * BP elevated at 112/87 * Probably related to pain * trend blood pressure * consider adding therapy if no improvement (4) Transaminitis: Code(s): R74.01 - Elevation of levels of liver transaminase levels Status: Acute Assessment and Plan: * AST/ALT elevated at 59/56, trending up * Continue to trend * Hep panel negative DS: Summary Hospital Course Hospital Course: Patient is a 36-year-old female with no past medical history significant who presented to the ED for abdominal pain low-grade fever. Patient has been battling abdominal pain for roughly 6 weeks. When she arrived to the hospital she was noted to be tachycardic with elevated white count, elevated respirations and elevated lactate and was treated for sepsis. Patient was given IV antibiotics and fluids. Abdominal CT showed an abscess with inflamed ileum loops consistent with Crohn's disease. General surgery was consulted and conservative management was performed. GI was also consulted and patient went for colonoscopy which did show inflammation. Patient with through a small-bowel follow-through which she was able to swallow in show progression. Diet was advanced as tolerated patient has been able to eat well and doing okay. She had also been started on steroids for inflammation which have been effective as well. Patient's is currently ready to go home and labs and vital signs are stable at this time. Patient denies any chest pain, shortness of breath, nausea, vomiting, diarrhea, constipation, weakness or fatigue. Patient understands plan of care and will follow-up with Dr. Thompson in his office in 2-3 weeks. Status at Discharge Functional status at discharge: independent ambulation Overall status at discharge: patient is back to baseline Time Spent with Patient Time attestation: Total time spent providing and/or coordinating discharge services: 36 minutes Time spent: Greater than 30 minutes Specific discharge activities: Diagnostic testing, chart review, developing a treatment plan, education, care coordination documentation, physical exam, result review Exam Const: General: cooperative, no acute distress, well developed, alert and a
--- NOTE | 2021-09-02 11:30 | PM.DS ---
DS: Admitting Diagnosis Discharge Date 09/02/21 1130 Admitting Diagnosis Crohn's disease/abdominal abscess DS: Discharge Diagnosis Discharge Diagnosis (1) Abdominal abscess: Status: Deleted Assessment and Plan: CT of the abdominal and pelvis showed an abscess of 2.6 x 2.4 cm located in the ileum General surgery has been consulted Will continue Zosyn from ED Diet advanced to low fiber Dilaudid for pain medication Zofran for nausea White blood cell count 8.1 Continue to trend white blood cell count Blood cultures NGTD (2) Crohn disease: Code(s): K50.90 - Crohn's disease, unspecified, without complications Status: Deleted Assessment and Plan: Abd/pel CT found an abscess in the ileum with inflamed small bowel loops most likely reflect Crohn's disease Reports abdominal pain and fever Zosyn continued Colonoscopy revealed consistency with Crohn's CRP 13.4, ESR 108 Steroid initiated Medications for control have been discussed with the patient Pain medications: Dilaudid 0.5mg IV Q4H PRN Zofran for nausea GI consulted thank you for help (3) Hypertension: Code(s): I10 - Essential (primary) hypertension Status: Acute Assessment and Plan: BP elevated at 112/87 Probably related to pain trend blood pressure consider adding therapy if no improvement (4) Transaminitis: Code(s): R74.01 - Elevation of levels of liver transaminase levels Status: Acute Assessment and Plan: AST/ALT elevated at 59/56, trending up Continue to trend Hep panel negative DS: Summary Hospital Course Hospital Course: Patient is a 36-year-old female with no past medical history significant who presented to the ED for abdominal pain low-grade fever. Patient has been battling abdominal pain for roughly 6 weeks. When she arrived to the hospital she was noted to be tachycardic with elevated white count, elevated respirations and elevated lactate and was treated for sepsis. Patient was given IV antibiotics and fluids. Abdominal CT showed an abscess with inflamed ileum loops consistent with Crohn's disease. General surgery was consulted and conservative management was performed. GI was also consulted and patient went for colonoscopy which did show inflammation. Patient with through a small-bowel follow-through which she was able to swallow in show progression. Diet was advanced as tolerated patient has been able to eat well and doing okay. She had also been started on steroids for inflammation which have been effective as well. Patient's is currently ready to go home and labs and vital signs are stable at this time. Patient denies any chest pain, shortness of breath, nausea, vomiting, diarrhea, constipation, weakness or fatigue. Patient understands plan of care and will follow-up with Dr. Thompson in his office in 2-3 weeks. Status at Discharge Functional status at discharge: independent ambulation Overall status at discharge: patient is back to baseline Time Spent with Patient Time attestation: Total time spent providing and/or coordinating discharge services: 36 minutes Time spent: Greater than 30 minutes Specific discharge activities: Diagnostic testing, chart review, developing a treatment plan, education, care coordination documentation, physical exam, result review Exam Const: General: cooperative, no acute distress, well developed, alert and awake Nutritional Appearance: well nourished Orientation/consciousness: patient oriented x3 Limitations: no limitations HENMT: Head: normal to inspection Ears: hearing grossly normal bilaterally General nose exam: Normal external nose present Mouth: Yes Normal oral and palatal mucosa present, Yes lip normal and Yes tongue normal Teeth and gingiva: abnormal tooth and associated gingiva and poor dentition Eyes: General: appearance normal, both eyes and all related structures
[2021-09-02 12:22] LABS: NIL 0.01 IU/mL; Quantiferon TB Plus, 1T NEGATIVE (NEGATIVE)
--- NOTE | 2021-09-02 12:57 | WPDGIPROGNO ---
Progress Note: A&P Assessment and Plan (1) Crohn's disease of ileum with abscess: Code(s): K50.014 - Crohn's disease of small intestine with abscess Status: Acute Assessment and Plan: new diagnosis (confirmed by colonoscopy findings with path report and abnormal imaging) ok to go home with 5 more days of oral antibiotic, also slow prednisone taper follow-up office in 2-3 weeks in the meantime will submit paperwork to her insurance and start process for stelara injection (negative HBV and TB) (2) Mesenteric abscess: Code(s): K65.1 - Peritoneal abscess Status: Acute Assessment and Plan: on antibiotics no need of surgery (3) Transaminitis: Code(s): R74.01 - Elevation of levels of liver transaminase levels Status: Acute Assessment and Plan: probably from crohn's repeat labs as outpatient Subjective Date/time seen: 09/02/21 12:57 Interval history: no more pain and tolerating diet Review of Systems Review of Systems: All systems reviewed & are unremarkable except as noted in HPI and below Exam Const: General: comfortable and no acute distress HENMT: General nose exam: Normal nares present Eyes: General: appearance normal, both eyes and all related structures Neck: Neck: no JVD Resp: Auscultation: clear to auscultation bilaterally Cardio: Rate: regular rate Rhythm: regular rhythm GI: Inspection: non-distended GI Palp: Yes Soft to palpation and No Tenderness to palpation present (GI) Auscultation: normal bowel sounds Skin: General skin exam: normal color Neuro: General: gait normal Speech: normal speech Extrem: General: normal to inspection Psych: Mental Status: mental status grossly normal Objective Data Vital Signs Vital Signs: Vital Signs - 24 hr 09/01/21 14:00 09/01/21 20:43 09/02/21 04:24 Temperature 97.9 F 97.9 F 97.5 F L Pulse Rate 68 51 L 62 Respiratory Rate 18 18 14 Blood Pressure 106/53 L 111/78 112/78 Pulse Oximetry 99 100 100 Oxygen Delivery 09/02/21 10:13 Temperature Pulse Rate Respiratory Rate Blood Pressure Pulse Oximetry 97 Oxygen Delivery Room Air Intake/Output Intake/Output: Intake & Output 08/30/21 08/31/21 09/01/21 09/02/21 23:59 23:59 23:59 23:59 Intake Total 2500 940 800 790 Balance 2500 940 800 790 Meds/Results Medications: Active Medications Generic Name Dose Route Start Last Admin Trade Name Freq PRN Reason Stop Dose Admin Hydromorphone HCl 1 mg 08/30/21 18:52 09/01/21 23:17 Hydromorphone Hcl Inj (*Crx) 1 Mg/Ml Syr IV PUSH 1 mg Q4H PRN Administration Pain Rated 7-10 Piperacillin/Tazobactam/Dextrose 3.375 gm in 50 mls @ 100 mls/hr 08/29/21 09:10 09/02/21 12:54 Zosyn 3.375 Gm/D5w 50ml Pm IVPB 100 mls/hr Q6H MIMI Administration Ondansetron HCl 4 mg 08/29/21 06:49 08/30/21 15:16 Ondansetron Inj 4 Mg/2 Ml Vial IV PUSH 4 mg Q4H PRN Administration Nausea Pantoprazole Sodium 40 mg 08/29/21 09:00 09/02/21 09:45 Pantoprazole Sodium Iv 40 Mg Vial IV PUSH 40 mg Q12HR MIMI Administration Prednisone 40 mg 09/03/21 08:00 Prednisone 20 Mg Tablet PO DAILY@0800 [facility] Radiology Results: ITS Impressions Abdomen/Pelvis CT 08/29/21 11:13 IMPRESSION: Distal and terminal ileitis, 2.6 x 2.4 cm adjacent abscess, likely secondary to Crohn's disease Upper GI and Small Bowel X-Ray 08/31/21 15:00 IMPRESSION: Crohn's disease with at least several distal ileal and terminal ileal strictured segments with mucosal fold irregularity and thickening Contrast material reaches the colon within 1.5 hours. Labs Labs: Laboratory Results - last 24 hr 08/31/21 09/02/21 09/02/21 05:33 06:21 06:21 WBC 13.6 H RBC 3.75 L Hgb 10.2 L Hct 33.1 L MCV 88.3 MCH 27.2 MCHC 30.8 L RDW 15.2 H Plt Count 317 MPV 8.8 Immature Gran % (Auto) 0.7 H Neut % (Auto) 91.2 H Lymph % (Auto)
[2021-09-05 18:22] LABS: Calprotectin, Stool 2210 mcg/g
[2021-09-09 16:43] LABS: TPMT Activity 13
== END 2021-09-02 15:15 | disposition home or self-care (01) | DRG 872 ==
LOC: ANHED 06:48 → ANH3MED 08:40
PROVIDERS: Internal Medicine Gastroenterology; Admitting Provider Internal Medicine; Emergency Provider Emergency Medicine; Visit Provider Nurse Practitioner
PROC: 0DJD8ZZ Inspection of Lower Intestinal Tract, Via Natural or Artificial Opening Endoscopic (ICD-10-PCS; CPT 45378; principal; 2021-08-31 15:00)
DX: A41.9 Sepsis, unspecified organism (principal); K50.014 Crohn's disease of small intestine with abscess; I10 Essential (primary) hypertension; E66.9 Obesity, unspecified; R74.01 Elevation of levels of liver transaminase levels; R00.0 Tachycardia, unspecified; Z68.34 Body mass index [BMI] 34.0-34.9, adult; Z20.822 Contact with and (suspected) exposure to COVID-19
CPT/HCPCS: 36415; 74177; 74250; 80053; 80074; 81001; 81025; 82657; 83605; 83735; 83993; 85025; 85652; 86140; 86480; 86706; 87040; 88305; 96361; 96365; 96366; 96367; 96375; 96376; 99285; A9270; C9113; C9803; G0378; J0131; J1170; J2405; J2543; J2704; J2920; J7030; J7120; Q9967; U0003; U0005

== ENCOUNTER 2021-09-10 15:50 | Inpatient (IN) | payer BC, SELFPAY ==
[2021-09-10] VITALS (12 sets, daily range): BP systolic 131–146; BP diastolic 70–92; PULSE 94–122; RESP 18–27; TEMP 36.2–36.8; O2SAT 99–100; BMI 38.6
--- NOTE | ~2021-09-10 | CT_ITS ---
EXAMINATION: CT abdomen pelvis w con DATE: 09/10/2021 17:44 INDICATION: Evaluate change in abdominal abscess TECHNIQUE: Computed tomography (CT) of the abdomen and pelvis was performed with 100 cc Omnipaque 300 intravenous contrast. The dose-length product was 1466.03 mGy-cm. Automated exposure control and ite rative reconstruction technique were employed. COMPARISON: CT dated 08/30/2019. FINDINGS: Lung bases unremarkable. Heart size normal. No significant pleural or pericardial effusion. 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 There appears to be contrast within the abscess. There is adjacent thickening of the termi nal ileum. Small amount of free fluid in the mesentery, right paracolic gutter and pelvis. Nonobstructive bowel gas pattern. No free air identified. No significant lymphadenopathy. No vascular abnormality. The liver, spleen, pancreas, adrenal glands and kidneys are unremarkable. Gallbladder i s present. No acute osseous abnormality. IMPRESSION: 1. Persistent abnormal thickening of the ileum which may be infectious or inflammatory (i.e. Crohn's disease). There is an enlarging adjacent mesenteric abscess which appears to contain contrast, likely from recent small bowel follow-through study. 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 Reviewed, dictated and finalized at location A. IMPRESSION: 1. Persistent abnormal thickening of the ileum which may be infectious or infla mmatory (i.e. Crohn's disease). There is an enlarging adjacent mesenteric absce ss which appears to contain contrast, likely from recent small bowel follow-thr ough study. 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
--- NOTE | ~2021-09-10 | XR_ITS ---
EXAMINATION: XR abdomen obstructive series DATE: 09/13/2021 06:07 INDICATION: Abdominal pain TECHNIQUE: Frontal supine and upright views of the abdomen were obtained. COMPARISON: 09/10/2021 FINDINGS: Small amount of gas in the stomach and scattered throughout normal caliber colon. No dilated gas-fill ed loops of bowel to suggest obstruction. Small collection of contrast in the right hemipelvis corres ponding to small abscess likely communicate with the small bowel seen on the prior CT. No free intrap eritoneal gas. Visualized lung bases are clear. IMPRESSION: 1. No free intraperitoneal gas or dilated gas-filled loops of bowel to suggest obstruction. 2. Unchanged small collection of contrast in the right lower quadrant on prior CT corresponded to an abscess communicating with the adjacent small bowel. Reviewed, dictated and finalized at location A.
--- NOTE | ~2021-09-10 | US_ITS ---
US right upper quadrant DATE: 09/11/2021 08:04 INDICATION: Right upper quadrant abdominal pain TECHNIQUE: Real-time imaging of liver, pancreas, gallbladder COMPARISON: 09/10/2021 CT abdomen pelvis FINDINGS: No hepatic or pancreatic space-occupying mass lesion is detected. Normal hepatopedal portal venous flow direction. 2.5 mm anterior gallbladder wall. No gallstones or gallbladder wall thickening. Negative sonographic Walter's sign. No abnormal bowel duct dilatation. IMPRESSION: 2.5 mm gallbladder polyp Reviewed, dictated and finalized at Location A. Reviewed, dictated and finalized at location A. IMPRESSION: 2.5 mm gallbladder polyp
[2021-09-10 16:23] LABS: Basophils Percent Auto 0.1 % (0.2-1.2); Eosinophils Percent Auto 0.3 % (0-4.4); Hematocrit 37.7 % (37.0-47.0); Hemoglobin 11.5 g/dL (12.0-15.0); Immature Granulocyte Absolute 0.08 K/mm3 (0.00-0.031); Immature Granulocyte Percent A 0.5 % (0-0.5); Lymphocytes Absolute Auto 1.57 K/mm3 (0.9-3.2); Lymphocytes Percent Auto 10.8 % (18.3-44.2); Mean Corpuscular HGB Conc 30.5 g/dl (32-36); Mean Corpuscular Hemoglobin 27.4 pg (26-34); Mean Platelet Volume 9.1 fl (7.4-10.4); Monocytes Absolute Auto 1.3 K/mm3 (0.1-0.6); Monocytes Percent Auto 9.2 % (2.6-8.5); Neutrophils Absolute Auto 11.5 K/mm3 (1.3-6.7); Neutrophils Percent Auto 79.1 % (45.5-73.1); Platelet Count Result 299 k/mm3 (150-375); Red Blood Count 4.19 M/mm3 (4.2-5.4); Red Cell Distribution Width 16.1 % (11.5-14.5); White Blood Count 14.6 K/mm3 (4.5-10.0)
[2021-09-10 16:32] LABS: Alanine Aminotransferase 30 U/L (6-35); Alkaline Phosphatase 99 U/L (38-126); Anion Gap 8 mmol/L (8-16); Aspartate Amino Transferase 21 U/L (14-36); Bilirubin,Total 0.7 mg/dL (0.2-1.3); Blood Urea Nitrogen 14 mg/dL (7-17); Calcium 8.1 mg/dL (8.4-10.2); Carbon Dioxide 24 mmol/L (22-30); Chloride 104 mmol/L (98-107); Estimated CRCL calculation 86 ml/min; Estimated Glomerular Filt Rate > 60; Glucose 83 mg/dL (65-110); Lipase 122 U/L (23-300); Sodium 136 mmol/L (137-145)
[2021-09-10 16:32] LABS: Appearance Urine Clear (Clear); Bilirubin Urine Negative (Negative); Blood Urine 3+ (Negative); Color Urine Yellow (Yellow); Glucose Urine UA Negative (Negative); Ketones Urine Negative (Negative); Leukocyte Esterase Ur Trace LEU/UL (Negative); Nitrate Urine Negative (Negative); Protein Urine Negative (Negative); Urobilinogen Urine 0.2 mg/dL (<2.0)
[2021-09-10 16:38] LABS: Bacteria Urine Trace /hpf; Mucus Urine Rare /lpf; Squamous Epithelial Cell Urine Moderate /hpf (Few)
[2021-09-10 16:40] LABS: Add Urine Microscopic? YES
--- NOTE | 2021-09-10 17:22 | ED.ABDPAIN ---
HPI - Abdominal Pain General Chief Complaint: Abdominal Pain Stated Complaint: abd pain Time Seen by Provider: 09/10/21 16:37 History of Present Illness HPI narrative: This is a 36-year-old female with past medical history significant for Crohn's, recently discharged for intra-abdominal abscess measuring 2.4 x 2.4 cm. She presents to the emergency department today complaining of fever, lightheadedness, and intermittently worsening abdominal pain, described as sharp, 10 out of 10 when aggravated, 2-3 of 10 when not. She is not aware of any particular aggravating or alleviating factors. Her pain is located in the right upper quadrant with occasional radiation to the right lower quadrant. She states she finished a 5-day course of amoxicillin after her recent discharge and is still taking her prednisone taper. She denies vomiting, blood in stool, dysuria or hematuria. Related Data Allergies Allergy/AdvReac Type Severity Reaction Status Date / Time No Known Allergies Allergy Verified 09/10/21 21:10 Review of Systems Review of Systems: CONSTITUTIONAL: +fever, chills, and sweats. EYES: Denies visual changes, redness, or discharge. ENT: Denies rhinorrhea, congestion, sore throat, or otalgia. CARDIOVASCULAR: Denies chest pain, palpitations, or edema. RESPIRATORY: Denies cough or dyspnea. GASTROINTESTINAL: abdominal pain, denies nausea, vomiting, or diarrhea. GENITOURINARY: Denies dysuria or hematuria. SKIN: Denies rash or itching. MUSCULOSKELETAL: Denies back pain, joint pain, or myalgia. NEUROLOGIC: Denies headache, numbness, dizziness, or weakness. PSYCHIATRIC: Denies anxiety or depression. PMFSH Past Medical History Medical History Mesenteric abscess Obesity Surgical History Surgical History Previous section Family History Family History Mother Hypertension Heart disease Acute myocardial infarction Grandparent Brain cancer Grandparent Diabetes mellitus Social History Social History Social History: Patient lives at home with her Norman who will be her surrogate. They have 2 kids 1 boy 1 girl and no pets. 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 Patient wishes to be a full code at this time Smoking status: Never smoker Second hand tobacco smoke exposure: No Alcohol intake: never Substance use: never 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/education comments: technical administrator for a [employer] Gender identity (if verbalized by the patient): Female Sexual Orientation (if Verbalized by the Patient): Straight or Heterosexual Spiritual care concerns: No Agree to blood products: Yes Exam Narrative: GENERAL: Diaphoretic, well-nourished, and in no acute distress. HEAD: Normocephalic, atraumatic. EYES: PERRLA and EOMI. ENT: Nares clear, no rhinorrhea or epistaxis. Mucous membranes moist. Oropharynx without tonsillar hypertrophy exudate or other lesions. Bilateral TMs pearly villeda nonbulging NECK: Supple. No adenopathy or masses. No carotid bruits or JVD CHEST: Clear to auscultation. No respiratory distress. No wheezes rales or rhonchi HEART: Tachycardic, with regular rhythm. No murmur heard. Normal peripheral pulses. ABDOMEN: Soft, tender to palpation in the epigastrium and right lower quadrant without rebound tenderness, no active or passive guarding, nondistended, normal active bowel sounds. No CVA tenderness to palpation EXTREMITIES: Normal range of motion. No edema. SKIN: Warm, dry, no rash. NEURO: No focal deficits. Alert and oriented x3. PSYCH: Normal mood and affect. Course Course Emergency Course: 17:01 - I have a high suspicion for sepsis likely due to intra-abdominal abscess. Will initiate sepsis protocol. 18:30 - Lactic acid 1.3. CT sh
[2021-09-10] MEDS: MORPHINE SULFATE (*CRX) 4 MG/ML INJ 6 MG IV PUSH (17:24)
[2021-09-10] MEDS: SODIUM CHLORIDE 0.9% IV 1,000 ML 999 ML IV CONT (17:24)
[2021-09-10 17:35] LABS: Lactic Acid Reflex 1.3 mmol/L (0.7-2.0)
[2021-09-10 17:37] LABS: INR 1.1; Prothrombin Time 13.3 Seconds (11.1-14.7)
[2021-09-10 17:38] LABS: CRP 6.6 mg/dL (<1.0); Partial Thromboplastin Time 29.2 SECONDS (22.3-36.8)
--- NOTE | 2021-09-10 19:27 | PM.IMHP ---
H&P: HPI History of Present Illness Date/Time: 09/10/21 19:05 Chief Complaint: Abdominal Pain Narrative: This very pleasant 36 year old female patient with significant PMH of Crohn's disease (newly diagnosed in first week of August 2021,) and most recently a mesenteric abscess measuring 2.6cm x 2.4 cm as a result of the Crohn's (discharged from hospital 09/02/21), presents to the ER this evening with worsening abdominal pain. When she was previously hospitalized she was consulted on by Gen Velasquez and they opted for conservative management. GI consulted, Dr. Thompson, and he ordered a Barium swallow that passed without difficulty. She was meeting sepsis criteria at the time she was previously admitted and she responded favorably to the Zosyn and the Steroids that she was placed on during that admission and she was discharged to home with a slow Prednisone taper that she is still taking, and additional days of Abx therapy that she has since finished. She has been home since 09/02/21, and had a follow up appointment with Dr. Thompson in his office later this month at which time they were going to start insurance authorization for [facility]. She endorses that her pain has never really subsided completely and when she woke up this morning, she had increased pain to the right upper and lower sides of her abdomen and she was running a low grade fever, was lightheaded, and her pain increased from a 2-->10. She presented to the ER today for further evaluation and management. ER workup was started and is significant for WBC count of 14.6 w/elevated Absolute Neutrophils of 11.5. No noted bandemia, and normal Lactic Acid. In addition, her CRP is 6.6. CT of the abdomen and pelvis was repeated and demonstrates persistent abnormal thickening of the ileum which may be infectious or inflammatory in setting of Crohn's disease. There is an enlarging adjacent mesenteric abscess which appears to contain contrast, likely from recent small bowel follow-through study. This would suggest fistula from adjacent bowel. The abscess now measures 4.7 cm x 4.7 cm x 5.3 cm. In addition, her urine shows a possible UTI, but pt. is asymptomatic and there were a large amount of epithelials in the urine suggesting contaminate. She will be placed on abx however that would cover her for a UTI as well. She is being admitted to hospitalist service at this time for further workup and management. Gen Sgy as well as GI will be consulted and potentially Interventional Radiology. She will be started on Zosyn as this is what she responded well to last time and we will keep her NPO at this time with IVF infusing. She will have anti-emetics and pain medications available to her. At the time of my admission she has no CP, dyspnea, but does feel nauseated at times and has abdominal pain in the epigastric region radiating to the RUQ and down the right side. She denies any urinary urgency, burning, frequency or hematuria. Family was present at the bedside and all questions were answered to the best of my ability. Review of Systems Review of Systems: All systems reviewed & are unremarkable except as noted in HPI and below PMFSH Past Medical History Medical History Mesenteric abscess Obesity Surgical History Surgical History Previous section Family History Family History Mother Hypertension Heart disease Acute myocardial infarction Grandparent Brain cancer Grandparent Diabetes mellitus Social History Social History Social History: Patient lives at home with her Norman who will be her surrogate. They have 2 kids 1 boy 1 girl and no pets. 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 Patient wishes to be a full code at this time Smoking st
--- NOTE | 2021-09-10 20:00 | ADMGEN ---
This patient, Latoya Doshi, was admitted to Medical Room 342-01. Patient/family oriented to hospital policies and general routines including ID bracelet, bed and alarms, visiting hours, pain management, procedures, bathroom and other care routines, personal items, smoking policy, room service/diet, and visiting hours. Information on how to activate the Rapid Response Team has been discussed. Patient/Family are encouraged to report perceived risks to care and to ask questions if they do not understand what they are told or what they should do.
[2021-09-10] MEDS: HYDROmorphone HCL INJ (*CRX) 1 MG/ML SYR IV PUSH (21:03)
[2021-09-10] MEDS: SODIUM CHLORIDE 0.9% IV 1,000 ML 125 ML IV CONT (21:04)
--- NOTE | 2021-09-10 21:10 | PM.CNGS ---
Assessment and Plan Assessment and plan (1) Mesenteric abscess: Code(s): K65.1 - Peritoneal abscess Status: Acute Assessment and Plan: Review of the CT shows that this has enlarged. The concerning factors that there may be some contrast in this. Therefore I plan to review this with 1 of our radiologist that does percutaneous drainage. If we believe that there is a fistula from the area of Crohn's to this abscess it may not be mann to do a percutaneous drainage thereby possibly creating a enterocutaneous fistula. It may be better to consider a bowel prep and then subsequent surgical intervention for a possible ileal resection with partial seek ectomy and anastomosis of normal small bowel to the cecum. However, the if it is felt that the contrast noted in the abscess was from a venous or vascular source perhaps we could continue steroids hoping that the inflammation we continued to decrease and do a percutaneous drainage with continued IV antibiotics for a longer course. Obviously the oral antibiotics were not as effective or the abscess progressed while she is on them. (2) Crohn's disease of ileum with abscess: Code(s): K50.014 - Crohn's disease of small intestine with abscess Status: Acute Assessment and Plan: Pathology seems indicate ileitis for sure but there were no granulomas to definitely diagnosis Crohn's disease. Therefore, will order some stool studies to rule out Campylobacter and some other possible causes of ileitis ( Yersinia is another possibility). Will ask the patient about recent stooling pattern in the morning. (3) Hypertension: Code(s): I10 - Essential (primary) hypertension Status: Acute Assessment and Plan: Will leave this up to the hospitalist to treat. Patient on no specific home medications to suggest that she is on medications for this problem. recommend Monitoring (4) Abdominal pain: Code(s): R10.9 - Unspecified abdominal pain Status: Acute Assessment and Plan: Because her pain is always been right upper quadrant and she has read this recently had a IV 18 months ago I would hate to do an operation on her and then find out later that she had gallstones. Plan to do ultrasound of the upper abdomen in the morning to rule out cholelithiasis. Therefore will let her have clear liquids until midnight NPO at midnight the ultrasound and try to review the ultrasound aunts CT with the radiologist tomorrow. (5) Obesity (BMI 30-39.9): Code(s): E66.9 - Obesity, unspecified Status: Acute Assessment and Plan: encourage patient to convert to a healthier lifestyle and use portion control and low-fat diet to lose weight History of Present Illness Consult details Consult date: 09/10/21 Reason for consult: other ( enlarging mesenteric abscess -- abdomen) Requesting physician: Gemma Zamudio APN-C Narrative: This is a 36 year old White female patient with significant PMH of recently diagnosed Crohn's disease (newly diagnosed in first week of August 2021,). this was found by CT scan evidence along with a colonoscopy done by Dr. Thompson last admission by which she was able to get into the ilium and do some biopsies. (Please see biopsy results). The CT during that admission showed a mesenteric abscess measuring 2.6cm x 2.4 cm as a result of the Crohn's (discharged from hospital 09/02/21). She now, today , presents to the ER with worsening abdominal pain. When she was previously hospitalized she was seen by my partner Dr. Eubanks, and Cornelio in consultation with Dr. Thompson opted for conservative management. Dr. Thompson and he ordered a Barium swallow with SBFT that passed without difficulty. She was meeting sepsis criteria at the time she was previously admitted and she responded favorably to the Zosyn and the Steroids that she was placed on during that admission. Then she was discharged to home with a slo
[2021-09-11] VITALS (9 sets, daily range): BP systolic 109–115; BP diastolic 49–73; PULSE 52–122; RESP 16–18; TEMP 35.2–36.5; O2SAT 96–100
[2021-09-11] MEDS: SODIUM CHLORIDE 0.9% IV 1,000 ML 125 ML IV CONT ×2 (06:38→18:19)
[2021-09-11] MEDS: PANTOPRAZOLE SODIUM IV 40 MG VIAL IV PUSH ×2 (08:41→20:51)
[2021-09-11] MEDS: methylPREDNISolone SOD SUCC 40 MG VIAL IV PUSH ×3 (08:41→18:19)
[2021-09-11 09:03] LABS: Basophils Percent Auto 0.3 % (0.2-1.2); Eosinophils Percent Auto 0.1 % (0-4.4); Hematocrit 36.7 % (37.0-47.0); Hemoglobin 11.2 g/dL (12.0-15.0); Immature Granulocyte Absolute 0.11 K/mm3 (0.00-0.031); Immature Granulocyte Percent A 0.7 % (0-0.5); Lymphocytes Absolute Auto 1.28 K/mm3 (0.9-3.2); Lymphocytes Percent Auto 8.6 % (18.3-44.2); Mean Corpuscular HGB Conc 30.5 g/dl (32-36); Mean Corpuscular Hemoglobin 27.3 pg (26-34); Mean Corpuscular Volume 89.3 fl (80-100); Mean Platelet Volume 9.2 fl (7.4-10.4); Monocytes Absolute Auto 1.4 K/mm3 (0.1-0.6); Monocytes Percent Auto 9.5 % (2.6-8.5); Neutrophils Absolute Auto 12.1 K/mm3 (1.3-6.7); Neutrophils Percent Auto 80.8 % (45.5-73.1); Platelet Count Result 332 k/mm3 (150-375); Red Blood Count 4.11 M/mm3 (4.2-5.4); Red Cell Distribution Width 16.4 % (11.5-14.5); White Blood Count 14.9 K/mm3 (4.5-10.0)
[2021-09-11 09:20] LABS: Anion Gap 7 mmol/L (8-16); Blood Urea Nitrogen 9 mg/dL (7-17); Calcium 8.1 mg/dL (8.4-10.2); Carbon Dioxide 25 mmol/L (22-30); Chloride 102 mmol/L (98-107); Estimated CRCL calculation 79 ml/min; Estimated Glomerular Filt Rate > 60; Glucose 96 mg/dL (65-110); Potassium 3.7 mmol/L (3.4-5.0); Sodium 134 mmol/L (137-145)
--- NOTE | 2021-09-11 09:45 | P.PNIM_ITS ---
Progress Note: A&P Assessment and Plan (1) Mesenteric abscess: Code(s): K65.1 - Peritoneal abscess Status: Acute Assessment and Plan: * Consult Gen Surgery and GI thank you for your help * abdomen CT Persistent abnormal thickening of the ileum which may be infectious or inflammatory (i.e. Crohn's disease). There is an enlarging adjacent mesenteric abscess which appears to contain contrast, likely from recent small bowel follow-through study. 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 * Abdomenal CT from 08/29/21 Distal and terminal ileitis, 2.6 x 2.4 cm adjacent ab scess, likely secondary to Crohn's disease * Start Zosyn 3.375 Q6 hrs * Continue IVF of NS at 125 ml/hr for hydration * Blood cultures x2 continues to pend * Maintain NPO status * PRN Dilaudid for pain * PRN Zofran for nausea. * Trend labs * WBC today is 14.6 up from admission at 13.6 * Possible IR for perc drain vs surgical intervention (2) Crohn's disease of ileum with abscess: Code(s): K50.014 - Crohn's disease of small intestine with abscess Status: Acute Assessment and Plan: * DX on 08/29-06/18 * Still on very long and slow taper of steroids * Abd/CT shows worsened thickening of the bowel * GI on board * Pre auth for Stelara initiated at GI office * Colonoscopy from 08-31-21 found Crohn's affecting the terminal ileum with a complicated small abscess * SBFT from 08-31-21 found Crohns's with at least several distal ileal and terminal ileal strictured segments with mucoidal fold irregularity and thickening * Start steroids 40mg IV Q6H * Protonix IV 40mg BID * Await further findings from above (3) Abnormal finding on urinalysis: Code(s): R82.90 - Unspecified abnormal findings in urine Status: Acute Assessment and Plan: * UA positive for leukocyte esterase trace, 4-6 WBC, moderate epithelial cells * Really don't think that this is infectious * Urine culture pending * On Zosyn which should cover Time Spent With Patient Time with patient: Greater than 35 minutes Subjective Date/time seen: 09/11/21 09:45 Interval history: 09/11/21 0945 Patient seems to be doing okay today. She did state that she had a terrible headache and she is all of a sudden having a moment and diaphoresis. She denied any chest pain, shortness of breath, nausea, vomiting, diarrhea, constipation. She did state that while she was on antibiotic she did have diarrhea but it got better after the antibiotic stopped. She also stated that she has not been a whole lot of pain however the nurse reported that she was up walking around pacing the room. I did let her know that she has a lot us know when she is in pain to help control her pain. Spoke with Dr. Ortiz who is going to have the images reviewed further to make a good plan of action for the abscess. 09/10/21? 19:05 This very pleasant 36 year old female patient with significant PMH of Crohn's disease (newly diagnosed in first week of August 2021,) and most recently a mesenteric abscess measuring 2.6cm x 2.4 cm as a result of the Crohn's (discharged from hospital 09/02/21), presents to the ER this evening with wor sening abdominal pain. When she was previously hospitalized she was consulted on by Gen Velasquez and they opted for conservative management. GI consulted, Dr. Thompson, and he ordered a Barium swallow that passed without difficulty. She was meeting sepsis criteria at the time she was previously admitted and she responded favorably to the Zosyn and the Steroids that she was placed on duri
--- NOTE | 2021-09-11 09:45 | PM.IMPN ---
Progress Note: A&P Assessment and Plan (1) Mesenteric abscess: Code(s): K65.1 - Peritoneal abscess Status: Acute Assessment and Plan: Consult Gen Surgery and GI thank you for your help abdomen CT Persistent abnormal thickening of the ileum which may be infectious or inflammatory (i.e. Crohn's disease). There is an enlarging adjacent mesenteric abscess which appears to contain contrast, likely from recent small bowel follow-through study. 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 Abdomenal CT from 08/29/21 Distal and terminal ileitis, 2.6 x 2.4 cm adjacent abscess, likely secondary to Crohn's disease Start Zosyn 3.375 Q6 hrs Continue IVF of NS at 125 ml/hr for hydration Blood cultures x2 continues to pend Maintain NPO status PRN Dilaudid for pain PRN Zofran for nausea. Trend labs WBC today is 14.6 up from admission at 13.6 Possible IR for perc drain vs surgical intervention (2) Crohn's disease of ileum with abscess: Code(s): K50.014 - Crohn's disease of small intestine with abscess Status: Acute Assessment and Plan: DX on 08/29-06/18 Still on very long and slow taper of steroids Abd/CT shows worsened thickening of the bowel GI on board Pre auth for Stelara initiated at GI office Colonoscopy from 08-31-21 found Crohn's affecting the terminal ileum with a complicated small abscess SBFT from 08-31-21 found Crohns's with at least several distal ileal and terminal ileal strictured segments with mucoidal fold irregularity and thickening Start steroids 40mg IV Q6H Protonix IV 40mg BID Await further findings from above (3) Abnormal finding on urinalysis: Code(s): R82.90 - Unspecified abnormal findings in urine Status: Acute Assessment and Plan: UA positive for leukocyte esterase trace, 4-6 WBC, moderate epithelial cells Really don't think that this is infectious Urine culture pending On Zosyn which should cover Time Spent With Patient Time with patient: Greater than 35 minutes Subjective Date/time seen: 09/11/21 09:45 Interval history: 09/11/21 0945 Patient seems to be doing okay today. She did state that she had a terrible headache and she is all of a sudden having a moment and diaphoresis. She denied any chest pain, shortness of breath, nausea, vomiting, diarrhea, constipation. She did state that while she was on antibiotic she did have diarrhea but it got better after the antibiotic stopped. She also stated that she has not been a whole lot of pain however the nurse reported that she was up walking around pacing the room. I did let her know that she has a lot us know when she is in pain to help control her pain. Spoke with Dr. Ortiz who is going to have the images reviewed further to make a good plan of action for the abscess. 09/10/21? 19:05 This very pleasant 36 year old female patient with significant PMH of Crohn's disease (newly diagnosed in first week of August 2021,) and most recently a mesenteric abscess measuring 2.6cm x 2.4 cm as a result of the Crohn's (discharged from hospital 09/02/21), presents to the ER this evening with worsening abdominal pain. When she was previously hospitalized she was consulted on by Gen Velasquez and they opted for conservative management. GI consulted, Dr. Thompson, and he ordered a Barium swallow that passed without difficulty. She was meeting sepsis criteria at the time she was previously admitted and she responded favorably to the Zosyn and the Steroids that she was placed on during that admission and she was discharged to home with a slow Prednisone taper that she is still taking, and additional days of Abx therapy that she has since finished. She has been home since 09/02/21, and had a follow up appointment with Dr. Thompson in his office later this month at which time they were going to start insurance authorization for May. She endorses that her pain has never really subsided compl
--- NOTE | 2021-09-11 09:54 | WPDGICN ---
Assessment and Plan Assessment and plan (1) Crohn's disease of ileum with abscess: Code(s): K50.014 - Crohn's disease of small intestine with abscess Status: Acute Assessment and Plan: Patient with Crohn's disease and aliya intestinal mesenteric abscess. All consistent with Crohn's disease. Imaging studies reveal contrast within the abscess suggesting fistula formation. Agree with intravenous antibiotics. Biologic agents will need to be deferred until infection clears. Given the apparent fistula to the abscess surgical therapy may be best. If so then resection of the stricture would be indicated as well. Oral antibiotics are not expected to cause this to improve. Therefore continued intravenous antibiotics for the immediate future. Steroids appear appropriate at this time to decrease inflammation but of course may hinder antibiotic use which should continue as well. I would favor surgical approach given the apparent fistula to the abscess. I would defer antibiotics for now and advance slowly To low residue diet if surgery not performed. (2) Mesenteric abscess: Code(s): K65.1 - Peritoneal abscess Status: Acute Assessment and Plan: Intravenous at antibiotics advised. Continued surgical follow up suggested. GI Consult Note Consult date/time: 09/11/21 09:54 Reason for consult: Crohn's disease and pericolonic abscess HPI: Latoya Doshi is a 36 year old female I am asked to see because of Crohn's disease and pericolonic abscess in the absence of Dr. Thompson. Patient reports over the last 2 months has had abdominal pain. Admitted to the hospital 2 weeks ago colonoscopy performed 1 week ago revealed terminal ileitis. Small-bowel series revealed terminal ileal stricture ring. And imaging studies reveal aliya ileal abscess. Patient was discharged home with tapering dose of steroids and oral antibiotics. Patient did well but developed rather significant fever along with right-sided abdominal pain this prompted her to present to the emergency room with follow-up imaging revealing an enlarged abscess. She was admitted the hospital for further evaluation and therapy. Patient states the pain is improved this morning. Pain has been somewhat in the right upper quadrant. She has been able to tolerate diet. Family history is noncontributory. Patient reports no travel. There are no family members with IBD that she is aware of. Review of Systems Review of Systems: He of systems noncontributory. [facility] Past Medical History Medical History (Updated 09/11/21 @ 00:57 by Dennis Ortiz MD) Mesenteric abscess Obesity Obesity (BMI 30-39.9) Surgical History Surgical History Previous section Family History Family History Mother Hypertension Heart disease Acute myocardial infarction Grandparent Brain cancer Grandparent Diabetes mellitus Social History Social History Social History: Patient lives at home with her Norman who will be her surrogate. They have 2 kids 1 boy 1 girl and no pets. 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
--- NOTE | 2021-09-11 23:52 | PM.PNGS ---
Progress Note: A&P Assessment and Plan (1) Crohn's disease of ileum with abscess: Code(s): K50.014 - Crohn's disease of small intestine with abscess Status: Acute Assessment and Plan: today I reviewed this patient's CT scan from yesterday with Dr. Frausto Radiology. He confirms that the dye noted within the abscess mesentery lower abdomen most likely is contrast related to her previous small-bowel follow-through not excreted or leaked IV contrast. 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 Has discussed with her last night I then think that is probably counter indicated to consider percutaneous drainage of this abscess because then basically would be creating a entero cutaneous fistula. For a Shah her course of action would probably be to go ahead and do a ileal seek ectomy for Crohn's disease which would then also resect this abscess on the meds mesenteric side of the distal small bowel. The CT scan yesterday sees as recording to Dr. Frausto seem to indicate there was still thickening and abnormality of the wall of the distal 2 ft of ileum and this would be what we need to resect plus the CK ectomy including her appendix and then do a [id number] functional end-to-end anastomosis of the small bowel where it seems to be healthy with the right colon. Dr. Thompson did not note any evidence of change of Crohn's disease in her right colon when he did the colonoscopy a week or 2 ago. I told her about the alternative which would be to continue IV antibiotics send her home with a PICC line on 4 week so IV antibiotics and then repeat the CT scan. However my guess would be we would not be any in a much different situation Immediately after that.. Therefore, I explained the risks, benefits, possible complications of a hand assisted laparoscopic distal ileal resection with cecectomy. Possible problems including bleeding, infection, anastomotic leak, and or fistula formation again have all been discussed. Medical problems such as pulmonary embolus, DVT, or pneumonia after surgery have been described. Anesthesia problems will be discussed by the anesthesiologist but she knows that there is a small risk of . Patient at this time prefers to go ahead and have a possibly have the surgery in the near future. I' all check with the nursing pest management supervisor in the morning and see if there is any way to do it Monday or Monday. Then we'ill plan to proceed with use of Entereg, use of Surgery Ensure along with a clear liquid diet through the time of surgery followed by the resection, reanastomosis, and then weaning of steroids. I encouraged the patient that we would have a large specimen then to be sure that she had Crohn's disease in the ileum by pathology and then most likely she would need to consider using a biologic for the rest of her life. She understands this and wishes to proceed in that manner. (2) Obesity (BMI 30-39.9): Code(s): E66.9 - Obesity, unspecified Status: Acute (3) Mesenteric abscess: Code(s): K65.1 - Peritoneal abscess Status: Acute Assessment and Plan: Continue steroids to reduce inflammation of the Crohn's and IV antibiotics for the abscess. (4) Polyp of gallbladder: Code(s): K82.4 - Cholesterolosis of gallbladder Status: Acute Assessment and Plan: discussed finding with the patient. Let her know that we would not have to do anything with the gallbladder and that her right upper quadrant pain must be referred. Explained gallbladder polyps and when we would need to be concerned. ( Greater than or + t10 mm polyp in the gallbladder.) Subjective Subjective Date/Time Seen: 09/11/21 22:52 Patient reports: no new complaints, feels better, pain is less ( Almost non-existent now.), flatus and afebrile Interval history: Patient stat
[2021-09-12] VITALS (9 sets, daily range): BP systolic 113–125; BP diastolic 68–70; PULSE 48–71; RESP 14–18; TEMP 35.7–37.2; O2SAT 97–100
[2021-09-12] MEDS: methylPREDNISolone SOD SUCC 40 MG VIAL IV PUSH ×4 (01:03→18:09)
[2021-09-12] MEDS: SODIUM CHLORIDE 0.9% IV 1,000 ML 125 ML IV CONT ×2 (01:35→09:01)
[2021-09-12 05:30] LABS: Basophils Percent Auto 0.1 % (0.2-1.2); Hematocrit 35.1 % (37.0-47.0); Hemoglobin 10.6 g/dL (12.0-15.0); Immature Granulocyte Percent A 0.8 % (0-0.5); Lymphocytes Absolute Auto 0.45 K/mm3 (0.9-3.2); Lymphocytes Percent Auto 3.7 % (18.3-44.2); Mean Corpuscular HGB Conc 30.2 g/dl (32-36); Mean Corpuscular Hemoglobin 27.2 pg (26-34); Mean Platelet Volume 9.1 fl (7.4-10.4); Monocytes Absolute Auto 0.3 K/mm3 (0.1-0.6); Monocytes Percent Auto 2.1 % (2.6-8.5); Neutrophils Absolute Auto 11.3 K/mm3 (1.3-6.7); Neutrophils Percent Auto 93.3 % (45.5-73.1); Platelet Count Result 294 k/mm3 (150-375); White Blood Count 12.1 K/mm3 (4.5-10.0)
[2021-09-12 05:52] LABS: Alanine Aminotransferase 23 U/L (6-35); Albumin Level 3.6 g/dL (3.5-5.1); Alkaline Phosphatase 95 U/L (38-126); Anion Gap 7 mmol/L (8-16); Aspartate Amino Transferase 23 U/L (14-36); Bilirubin,Total 0.6 mg/dL (0.2-1.3); Blood Urea Nitrogen 11 mg/dL (7-17); Calcium 8.2 mg/dL (8.4-10.2); Carbon Dioxide 25 mmol/L (22-30); Chloride 107 mmol/L (98-107); Estimated CRCL calculation 110 ml/min; Estimated Glomerular Filt Rate > 60; Glucose 141 mg/dL (65-110); Magnesium 2.6 mg/dL (1.6-2.3); Potassium 3.6 mmol/L (3.4-5.0); Sodium 139 mmol/L (137-145)
--- NOTE | 2021-09-12 08:57 | WPDGIPROGNO ---
Progress Note: A&P Assessment and Plan (1) Crohn's disease of ileum with abscess: Code(s): K50.014 - Crohn's disease of small intestine with abscess Status: Acute Assessment and Plan: Patient with terminal ileal stricture biopsies of the ileum by previous endoscopy are benign and consistent with Crohn's disease. Patient now admitted the hospital with increased size of aliya intestinal abscess. Imaging studies reveal contrast suggesting fistula to this abscess. Agree with plans for surgical resection. Continue antibiotics for now. Steroids have been implemented to decrease inflammation. Any implementation of biologic agents should be deferred till after infection resolves. (2) Transaminitis: Code(s): R74.01 - Elevation of levels of liver transaminase levels Status: Acute Assessment and Plan: Elevated LFTs noted initially have resolved. This likely was in from inflammation noted at time of presentation. (3) Obesity (BMI 30-39.9): Code(s): E66.9 - Obesity, unspecified Status: Acute (4) Polyp of gallbladder: Code(s): K82.4 - Cholesterolosis of gallbladder Status: Acute Assessment and Plan: No further workup planned at this time. Subjective Date/time seen: 09/12/21 08:57 Patient alert more comfortable today. Tolerating liquid diet. Notice is only minimal discomfort today. Review of Systems Review of Systems: Review of systems noncontributory. Exam Narrative: Physical exam reveals patient be alert. Comfortable at rest. Lungs are clear. Heart without murmur. Abdomen bowel sounds are present soft no localized tenderness evident. No masses palpable. Objective Data Vital Signs Vital Signs: Vital Signs - 24 hr 09/11/21 12:05 09/11/21 17:32 09/11/21 16:04 Temperature 95.3 F L Pulse Rate 63 57 L 52 L Respiratory Rate 16 Blood Pressure 110/73 Pulse Oximetry 100 Oxygen Delivery 09/11/21 19:37 09/11/21 20:50 09/12/21 04:53 Temperature 97.7 F 98.2 F Pulse Rate 54 L 61 Respiratory Rate 18 18 Blood Pressure 115/61 113/68 Pulse Oximetry 100 97 Oxygen Delivery Room Air 09/11/21 20:00 09/12/21 00:00 09/12/21 04:00 Temperature Pulse Rate 52 L 69 48 L Respiratory Rate Blood Pressure Pulse Oximetry Oxygen Delivery 09/12/21 08:04 Temperature Pulse Rate 71 Respiratory Rate Blood Pressure Pulse Oximetry Oxygen Delivery Intake/Output Intake/Output: Intake & Output 09/09/21 09/10/21 09/11/21 09/12/21 23:59 23:59 23:59 23:59 Intake Total 1050 3280 1050 Output Total 600 3 Balance 1050 2680 1047 Meds/Results Medications: Active Medications Generic Name Dose Route Start Last Admin Trade Name Freq PRN Reason Stop Dose Admin Hydromorphone HCl 1 mg 09/10/21 19:59 09/10/21 21:03 Hydromorphone Hcl Inj (*Crx) 1 Mg/Ml Syr IV PUSH 1 mg Q3H PRN Administration Pain Rated 7-10 Piperacillin/Tazobactam/Dextrose 3.375 gm in 50 mls @ 100 mls/hr 09/11/21 00:00 09/12/21 06:42 Zosyn 3.375 Gm/D5w 50ml Pm IVPB 100 mls/hr Q6H MIMI Administration Sodium Chloride 1,000 mls @ 125 mls/hr 09/10/21 19:55 09/12/21 01:35 Normal Saline Iv IV CONT 125 mls/hr .Q8H MIMI Administration Methylprednisolone Sodium Succinate 40 mg 09/11/21 07:45 09/12/21 06:39 Methylprednisolone Sod Succ 40 Mg Vial IV PUSH 40 mg Q6HR MIMI Administration Ondansetron HCl 4 mg 09/10/21 19:55 Ondansetron Inj 4 Mg/2 Ml Vial IV PUSH Q6H PRN Nausea And Vomiting Pantoprazole Sodium 40 mg 09/11/21 09:00 09/11/21 20:51 Pantoprazole Sodium Iv 40 Mg Vial IV PUSH 40 mg Q12HR MIMI Administration Radiology Results: ITS Impressions Abdomen/Pelvis CT 09/10/21 17:46 IMPRESSION: 1. Persistent abnormal thickening of the ileum which may be infectious or inflammatory (i.e. Crohn's disease). There is an enlarging adjacent mesenteric abscess which appears to
[2021-09-12] MEDS: PANTOPRAZOLE SODIUM IV 40 MG VIAL IV PUSH ×2 (09:01→21:00)
--- NOTE | 2021-09-12 10:00 | P.PNIM_ITS ---
Progress Note: A&P Assessment and Plan (1) Mesenteric abscess: Code(s): K65.1 - Peritoneal abscess Status: Acute Assessment and Plan: * Consult Gen Surgery and GI thank you for your help * abdomen CT Persistent abnormal thickening of the ileum which may be infectious or inflammatory (i.e. Crohn's disease). There is an enlarging adjacent mesenteric abscess which appears to contain contrast, likely from recent small bowel follow-through study. 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 * Abdomenal CT from 08/29/21 Distal and terminal ileitis, 2.6 x 2.4 cm adjacent ab scess, likely secondary to Crohn's disease * Start Zosyn 3.375 Q6 hrs * Continue IVF of NS at 125 ml/hr for hydration * Blood cultures x2 continues to pend * Clear liquids continued * PRN Dilaudid for pain * PRN Zofran for nausea. * Trend labs * WBC today is 12.1 * Possible IR for perc drain vs surgical intervention (2) Crohn's disease of ileum with abscess: Code(s): K50.014 - Crohn's disease of small intestine with abscess Status: Acute Assessment and Plan: * DX on 08/29-06/18 * Still on very long and slow taper of steroids * Abd/CT shows worsened thickening of the bowel * GI on board * Pre auth for Stelara initiated at GI office * Colonoscopy from 08-31-21 found Crohn's affecting the terminal ileum with a complicated small abscess * SBFT from 08-31-21 found Crohns's with at least several distal ileal and terminal ileal strictured segments with mucoidal fold irregularity and thickening * Start steroids 40mg IV Q6H * Protonix IV 40mg BID * Patient is to have a surgical intervention wither Monday or Monday (3) Abnormal finding on urinalysis: Code(s): R82.90 - Unspecified abnormal findings in urine Status: Acute Assessment and Plan: * UA positive for leukocyte esterase trace, 4-6 WBC, moderate epithelial cells * Really don't think that this is infectious * Urine culture no growth * On Zosyn which should cover Time Spent With Patient Time with patient: Greater than 35 minutes Subjective Date/time seen: 09/12/21 10:00 Interval history: 09/12/21 1000 Patient is doing well today. She stated that she has not felt this good over the last few weeks. She denies any pain, chest pain, shortness of breath, nausea, vomiting, diarrhea, constipation. she is prepared for the next couple of days. 09/11/21 0945 Patient seems to be doing okay today. She did state that she had a terrible headache and she is all of a sudden having a moment and diaphoresis. She denied any chest pain, shortness of breath, nausea, vomiting, diarrhea, constipation. She did state that while she was on antibiotic she did have diarrhea but it got better after the antibiotic stopped. She also stated that she has not been a whole lot of pain however the nurse reported that she was up walking around pacing the room. I did let her know that she has a lot us know when she is in pain to help control her pain. Spoke with Dr. Ortiz who is going to have the images reviewed further to make a good plan of action for the abscess. 09/10/21? 19:05 This very pleasant 36 year old female patient with significant PMH of Crohn's disease (newly diagnosed in first week of August 2021,) and most recently a mesenteric abscess measuring 2.6cm x 2.4 cm as a result of the Crohn's (discharged from hospital 09/02/21), presents to the ER this evening with worsening abdominal pain. When she was previously hospitalized she was consulted on by Gen Velasquez and they
--- NOTE | 2021-09-12 10:00 | PM.IMPN ---
Progress Note: A&P Assessment and Plan (1) Mesenteric abscess: Code(s): K65.1 - Peritoneal abscess Status: Acute Assessment and Plan: Consult Gen Surgery and GI thank you for your help abdomen CT Persistent abnormal thickening of the ileum which may be infectious or inflammatory (i.e. Crohn's disease). There is an enlarging adjacent mesenteric abscess which appears to contain contrast, likely from recent small bowel follow-through study. 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 Abdomenal CT from 08/29/21 Distal and terminal ileitis, 2.6 x 2.4 cm adjacent abscess, likely secondary to Crohn's disease Start Zosyn 3.375 Q6 hrs Continue IVF of NS at 125 ml/hr for hydration Blood cultures x2 continues to pend Clear liquids continued PRN Dilaudid for pain PRN Zofran for nausea. Trend labs WBC today is 12.1 Possible IR for perc drain vs surgical intervention (2) Crohn's disease of ileum with abscess: Code(s): K50.014 - Crohn's disease of small intestine with abscess Status: Acute Assessment and Plan: DX on 08/29-06/18 Still on very long and slow taper of steroids Abd/CT shows worsened thickening of the bowel GI on board Pre auth for Stelara initiated at GI office Colonoscopy from 08-31-21 found Crohn's affecting the terminal ileum with a complicated small abscess SBFT from 08-31-21 found Crohns's with at least several distal ileal and terminal ileal strictured segments with mucoidal fold irregularity and thickening Start steroids 40mg IV Q6H Protonix IV 40mg BID Patient is to have a surgical intervention wither Monday or Monday (3) Abnormal finding on urinalysis: Code(s): R82.90 - Unspecified abnormal findings in urine Status: Acute Assessment and Plan: UA positive for leukocyte esterase trace, 4-6 WBC, moderate epithelial cells Really don't think that this is infectious Urine culture no growth On Zosyn which should cover Time Spent With Patient Time with patient: Greater than 35 minutes Subjective Date/time seen: 09/12/21 10:00 Interval history: 09/12/21 1000 Patient is doing well today. She stated that she has not felt this good over the last few weeks. She denies any pain, chest pain, shortness of breath, nausea, vomiting, diarrhea, constipation. she is prepared for the next couple of days. 09/11/21 0945 Patient seems to be doing okay today. She did state that she had a terrible headache and she is all of a sudden having a moment and diaphoresis. She denied any chest pain, shortness of breath, nausea, vomiting, diarrhea, constipation. She did state that while she was on antibiotic she did have diarrhea but it got better after the antibiotic stopped. She also stated that she has not been a whole lot of pain however the nurse reported that she was up walking around pacing the room. I did let her know that she has a lot us know when she is in pain to help control her pain. Spoke with Dr. Ortiz who is going to have the images reviewed further to make a good plan of action for the abscess. 09/10/21? 19:05 This very pleasant 36 year old female patient with significant PMH of Crohn's disease (newly diagnosed in first week of August 2021,) and most recently a mesenteric abscess measuring 2.6cm x 2.4 cm as a result of the Crohn's (discharged from hospital 09/02/21), presents to the ER this evening with worsening abdominal pain. When she was previously hospitalized she was consulted on by Gen Velasquez and they opted for conservative management. GI consulted, Dr. Thompson, and he ordered a Barium swallow that passed without difficulty. She was meeting sepsis criteria at the time she was previously admitted and she responded favorably to the Zosyn and the Steroids that she was placed on during that admission and she was discharged to home with a slow Prednisone taper that she is still taking, and additional days of Abx therapy that
--- NOTE | 2021-09-12 13:41 | PM.PNGS ---
Progress Note: A&P Assessment and Plan (1) Crohn's disease of ileum with abscess: Code(s): K50.014 - Crohn's disease of small intestine with abscess Status: Acute Assessment and Plan: The patient states she is definitely improving while on bowel rest and antibiotics. She has had a couple loose bowel movements. She is tolerating clear liquids well. I have talked to the nursing tunnel heading supervisor and surgery schedule is okay for proceeding with surgical intervention on Monday afternoon. Therefore will proceed with a cleansing bowel prep continue the Zosyn around the clock and give 1 dose of metronidazole for ( total 3 doses 24 hours for prophylaxis. Will plan to do ileal seek ectomy possible ileostomy. Standing orders put in will have the ostomy nurses talk to her and marked for possible ostomy although I doubt that will need to be done. They will have time in the morning to do that prior to surgery. I discussed these things with the patient and all questions answered. (2) Obesity (BMI 30-39.9): Code(s): E66.9 - Obesity, unspecified Status: Acute (3) Mesenteric abscess: Code(s): K65.1 - Peritoneal abscess Status: Acute Assessment and Plan: Continue steroids to reduce inflammation of the Crohn's and IV antibiotics for the abscess. (4) Polyp of gallbladder: Code(s): K82.4 - Cholesterolosis of gallbladder Status: Acute Assessment and Plan: discussed finding with the patient. Let her know that we would not have to do anything with the gallbladder and that her right upper quadrant pain must be referred. Explained gallbladder polyps and when we would need to be concerned. ( Greater than or + t10 mm polyp in the gallbladder.) Subjective Subjective Date/Time Seen: 09/12/21 11:41 Patient reports: no new complaints and feels better Interval history: Patient alert more comfortable today.? Tolerating liquid diet.? Notice is only minimal discomfort today. Review of Systems Review of Systems: All systems reviewed & are unremarkable except as noted in HPI and below Constitutional: Constitutional: Reports as per HPI, Denies chills and Denies fever(s) ENT: Reports Normal hearing present Cardiovascular: Cardiovascular: Denies chest pain and Denies dyspnea Respiratory: Respiratory: Reports no additional respiratory complaints and Denies dyspnea Gastrointestinal: Gastrointestinal: Reports as per HPI and Denies bloating Musculoskeletal: Musculoskeletal: Reports no additional musculoskeletal complaints Neurologic: Reports Normal hearing present, Denies Abnormal speech present, Denies confusion and Denies memory loss Psychiatric: Psychiatric: Denies anxiety, Denies confusion and Denies memory loss Exam Const: General: cooperative, healthy appearing, comfortable, no acute distress, well developed, alert and awake; No confusion Orientation/consciousness: patient oriented x3 and No confusion HENMT: Head: normal to inspection Ears: hearing grossly normal bilaterally Mouth: Yes moist mucous membranes Teeth and gingiva: dentition normal Eyes: General: appearance normal, both eyes and all related structures Conjunctivae: conjunctivae normal Sclera: sclerae normal Pupils: Equal, round and reactive pupils present Neck: Neck: normal visual inspection, trachea midline, supple and no JVD Lymphatic: no lymphadenopathy noted Chest: Chest palpation & inspection: normal inspection of the chest Resp: Effort & Inspection: normal respiratory effort Auscultation: clear to auscultation bilaterally and no wheezes Cardio: Jugular venous distension: no JVD Rate: regular rate Rhythm: regular rhythm GI: Inspection: normal to inspection, obesity and other ( Rounded, good bowel sounds, scar from previous supra pubic area) Auscultation: normal bowel sounds Rectal Exam: deferred Other: no real tenderness to palpation today : General: Yes no CVA tenderness and Yes d
[2021-09-12] MEDS: ERYTHROMYCIN 250 MG TABLET 1000 MG PO ×2 (14:17→15:35)
[2021-09-12] MEDS: NEOMYCIN SULFATE 500 MG TAB 1000 MG PO ×2 (14:17→15:35)
[2021-09-12] MEDS: PEG (High)/E-LYTE SOLN 4,000 ML BTL 3000 ML PO (18:07)
[2021-09-12] MEDS: ONDANSETRON INJ 4 MG/2 ML VIAL IV PUSH ×2 (20:09→21:59)
[2021-09-13] VITALS (17 sets, daily range): BP systolic 114–132; BP diastolic 65–76; PULSE 44–77; RESP 13–18; TEMP 36.1–37.1; O2SAT 96–100
[2021-09-13] MEDS: SODIUM CHLORIDE 0.9% IV 1,000 ML 1250 ML IV CONT (00:08)
[2021-09-13] MEDS: methylPREDNISolone SOD SUCC 40 MG VIAL IV PUSH ×4 (00:08→23:29)
[2021-09-13] MEDS: HYDROmorphone HCL INJ (*CRX) 1 MG/ML SYR IV PUSH (00:09)
[2021-09-13] MEDS: ONDANSETRON INJ 4 MG/2 ML VIAL IV PUSH ×2 (01:47→05:20)
[2021-09-13] MEDS: BISACODYL 5 MG TABLET EC 20 MG PO (01:50)
[2021-09-13] MEDS: ERYTHROMYCIN 250 MG TABLET 1000 MG PO (01:50)
[2021-09-13] MEDS: NEOMYCIN SULFATE 500 MG TAB 1000 MG PO (01:50)
[2021-09-13] MEDS: PROCHLORPERAZINE 25 MG SUPP.RECT RECTAL (03:37)
[2021-09-13 05:39] LABS: Basophils Percent Auto 0.1 % (0.2-1.2); Hematocrit 37.9 % (37.0-47.0); Hemoglobin 11.3 g/dL (12.0-15.0); Immature Granulocyte Absolute 0.15 K/mm3 (0.00-0.031); Immature Granulocyte Percent A 0.8 % (0-0.5); Lymphocytes Absolute Auto 0.55 K/mm3 (0.9-3.2); Mean Corpuscular HGB Conc 29.8 g/dl (32-36); Mean Corpuscular Hemoglobin 27.1 pg (26-34); Mean Corpuscular Volume 90.9 fl (80-100); Mean Platelet Volume 9.4 fl (7.4-10.4); Monocytes Absolute Auto 0.4 K/mm3 (0.1-0.6); Neutrophils Absolute Auto 17.1 K/mm3 (1.3-6.7); Neutrophils Percent Auto 94.1 % (45.5-73.1); Platelet Count Result 406 k/mm3 (150-375); Red Blood Count 4.17 M/mm3 (4.2-5.4); Red Cell Distribution Width 16.5 % (11.5-14.5); White Blood Count 18.2 K/mm3 (4.5-10.0)
[2021-09-13 05:49] LABS: Alanine Aminotransferase 24 U/L (6-35); Albumin Level 3.9 g/dL (3.5-5.1); Alkaline Phosphatase 108 U/L (38-126); Anion Gap 9 mmol/L (8-16); Aspartate Amino Transferase 20 U/L (14-36); Bilirubin,Total 0.5 mg/dL (0.2-1.3); Blood Urea Nitrogen 12 mg/dL (7-17); Calcium 8.6 mg/dL (8.4-10.2); Carbon Dioxide 22 mmol/L (22-30); Chloride 110 mmol/L (98-107); Estimated CRCL calculation 97 ml/min; Estimated Glomerular Filt Rate > 60; Glucose 141 mg/dL (65-110); Magnesium 2.5 mg/dL (1.6-2.3); Potassium 4.3 mmol/L (3.4-5.0); Sodium 141 mmol/L (137-145)
[2021-09-13] MEDS: SODIUM CHLORIDE 0.9% IV 1,000 ML 125 ML IV CONT (09:02)
[2021-09-13] MEDS: PANTOPRAZOLE SODIUM IV 40 MG VIAL IV PUSH ×2 (09:04→20:30)
[2021-09-13 09:13] LABS: Hypochromasia 2+ (NORMAL)
--- NOTE | 2021-09-13 09:56 | PCWOUND ---
WOCN NOTE Received orders to melissa patient abdomen for suggested ostomy placement site. Did basic ostomy education with patient. had patient lay flat, site up and bend to determine best suggested sites. Marked both sides of abdomen with Black marker X covered with tegaderm dressing.
--- NOTE | 2021-09-13 10:21 | PC.NURSE ---
Patient transferred to pre-op @ 10:15
[2021-09-13] MEDS: KETOROLAC 15 MG/ML VIAL (*BKC) IV PUSH (11:30)
[2021-09-13] MEDS: ACETAMINOPHEN 500 MG TABLET 1000 MG PO (11:30)
--- NOTE | 2021-09-13 11:48 | WPDHPUPDATE1 ---
History and Physical Update Update Date/Time: 09/13/21 11:48 History and Physical has been reviewed, including an updated exam of the patient. There are changes in the patient's condition. The patient has been able to tolerate liquids. However, she was not able to tolerate a GoLYTELY prep last night. She was able to take the oral antibiotics and x-ray this morning does not show any bowel obstructive symptoms. She knows the plan is to proceed with a hand assisted distal small bowel resection with cecectomy and anastomosis with possible ileostomy only if needed. Risks, benefits, and alternatives have been discussed and questions answered. Patient agrees to proceed with procedure.
--- NOTE | 2021-09-13 11:58 | WPDANESEPPF ---
Anes - Initial Pre Proc Eval Procedure: Operation Date: 09/13/21 12:00 Proposed Procedures p Hand Assisted Laparoscopic Ileal-Cecectomy With Anastomosis,Possible Ileostomy Formation - Dennis Ortiz MD Date/Time: 09/13/21 11:58 Surgeon: Anu Pool MD Pre Op Diagnosis: intraabdominal abscess Patient Data Age: 36 Gender: F Height: 1.63 m Weight: 102 kg Last Vital Signs Temp 37.1 C 09/13/21 10:56 Pulse 64 09/13/21 10:56 Resp 14 09/13/21 10:56 BP 131/74 09/13/21 10:56 Pulse Ox 100 09/13/21 10:56 O2 Del Method Room Air 09/13/21 10:56 Allergies Allergy/AdvReac Type Severity Reaction Status Date / Time No Known Allergies Allergy Verified 09/13/21 11:00 Home Medications Medication Instructions Recorded Confirmed Type hydrocodone 5 mg-acetaminophen 325 1 tablet PO Q6H PRN pain #16 tabs 09/02/21 09/10/21 Rx mg tablet pantoprazole 40 mg granules 40 mg PO BID #60 ea 09/02/21 09/10/21 Rx delayed-release for susp in packet (Protonix) prednisone 10 mg tablet 10 mg PO DAILY #126 tabs 09/02/21 09/10/21 Rx prednisone 2.5 mg tablet 2.5 mg PO DAILY #28 tabs 09/02/21 09/10/21 Rx prednisone 5 mg tablet 5 mg PO DAILY #42 tabs 09/02/21 09/10/21 Rx Laboratory Tests 09/13/21 09/13/21 09/13/21 05:20 05:20 05:20 WBC 18.2 K/mm3 H K/mm3 (4.5-10.0) RBC 4.17 M/mm3 L M/mm3 (4.2-5.4) Hgb 11.3 g/dL L g/dL (12.0-15.0) Hct 37.9 % % (37.0-47.0) MCV 90.9 fl fl (80-100) MCH 27.1 pg pg (26-34) MCHC 29.8 g/dl L g/dl (32-36) RDW 16.5 % H % (11.5-14.5) Plt Count 406 k/mm3 H k/mm3 (150-375) MPV 9.4 fl fl (7.4-10.4) Immature Gran % (Auto) 0.8 % H % (0-0.5) Neut % (Auto) 94.1 % H % (45.5-73.1) Lymph % (Auto) 3.0 % L % (18.3-44.2) [place] % (Auto) 2.0 % L % (2.6-8.5) Eos % (Auto) 0.0 % % (0-4.4) Baso % (Auto) 0.1 % L % (0.2-1.2) Lymph # (Auto) 0.55 K/mm3 L K/mm3 (0.9-3.2) [place] # (Auto) 0.4 K/mm3 K/mm3 (0.1-0.6) Eos # (Auto) 0.0 K/mm3 K/mm3 (0-0.3) Baso # (Auto) 0.0 K/mm3 K/mm3 (0.0-0.1) Abs Immat Gran (auto) 0.15 K/mm3 H K/mm3 (0.00-0.031) Absolute Neuts (auto) 17.1 K/mm3 H K/mm3 (1.3-6.7) Absolute Nucleated RBC 0.0 K/mm3 K/mm3 (0.0-0.012) Nucleated RBC % 0.0 % % (0.0-0.2) Platelet Estimate Slightly increased (Adequate) Hypochromasia 2+ (NORMAL) Sodium 141 mmol/L mmol/L (137-145) Potassium 4.3 mmol/L mmol/L (3.4-5.0) Chloride 110 mmol/L H mmol/L (98-107) Carbon Dioxide 22 mmol/L mmol/L (22-30) Anion Gap 9 mmol/L mmol/L (8-16) BUN 12 mg/dL mg/dL (7-17) Creatinine 0.80 mg/dL mg/dL (0.7-1.0) Estim Creat Clear Calc 97 ml/min ml/min Estimated GFR > 60 (59 - ) Glucose 141 mg/dL H mg/dL (65-110) Calcium 8.6 mg/dL mg/dL (8.4-10.2) Magnesium 2.5 mg/dL H mg/dL (1.6-2.3) Total Bilirubin 0.5 mg/dL mg/dL (0.2-1.3) AST 20 U/L U/L (14-36) ALT 24 U/L U/L (6-35) Alkaline Phosphatase 108 U/L U/L (38-126) Total Protein 8.0 g/dL g/dL (6.3-8.2) Albumin 3.9 g/dL g/dL (3.5-5.1) Blood Type O Positive Antibody Screen Negative Patient hx anesthesia problems: none Family hx anesthesia problems: none Results Review: All pre-operative results and documents have been reviewed as part of the pre-operative evaluation. [facility] Past Medical History Medical History (Updated 09/13/21 @ 11:59 by Rocco Hess MD) Crohn's disease of ileum with abscess Mesenteric abscess Obesity Obesity (BMI 30-39.9) Surgical History Surgical History (Reviewed 09/13/21 @ 11:59 by Rocco
[2021-09-13] MEDS: metroNIDAZOLE 500 MG/ISO 100ML 500 MG/100 ML BAG 100 MG IVPB ×2 (12:23→20:30)
[2021-09-13] MEDS: BUPIVACAINE/EPINEPHRINE 0.25% 50 ML VIAL 30 ML INFILTRATE (12:55)
--- NOTE | 2021-09-13 15:38 | W.PM.PROC2 ---
Procedure Note - Detailed Date of Procedure 09/13/21 Pre-op Diagnosis 1. 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 Intraabdominal abscess Post-op Diagnosis Same Procedure Performed 1. Laparoscopic hand assisted ileal-cecectomy with anastomosis Surgeon Dennis Ortiz MD [employer] EZEQUIEL Carver, [place] 1st assist Anesthesia General Indications This patient is a pleasant overweight 36-year-old white female was recently diagnosed with suspected Crohn's disease after presenting to the hospital with abdominal pain and the findings of a mesenteric abscess associated with inflammation of the distal small bowel. (See previous CT scans. She had a small-bowel follow-through and subsequent CT scan showed contrast within the abscess cavity confirming probable fistula. Therefore was not felt to be mann to try to percutaneous drainage when this enlarged to 5 x 6 cm in size. I therefore discussed with her the risks benefits possible complications of surgical intervention see progress note of yesterday. Findings Patient had a normal looking cecum and appendix. The distal small bowel for about 2 ft was somewhat enlarged somewhat thickened whitish in color with creeping fat. There was a you loop of small bowel and the abscess seemed to be completely contained within the mesentery of that small bowel. We did not open the abscess during the resection. Description of Procedure The patient was placed in the supine position on the Operating Room table with a footboard in place, SCD hose on and N OG placed. Following this, after induction of adequate general endotracheal anesthesia by [facility] Anesthesia staff, we carefully clipped and prepped the abdomen. A 16 Fr. Hannah catheter was inserted prior to placement of ervin-gastric tube was inserted by anesthesia staff. Following this, the abdomen was widely draped and then time-out was performed confirming the patient, procedure, and site of surgery. Following this, an infra-umbilical incision was made after injection local anesthetic. Starting in the umbilicus and going down toward the pubic bone about 8 cm. Incision was made, which was carried down to and through the midline fascia. In the upper portion of this incision I carefully entered the peritoneum by tenting up the midline pre-peritoneal fat with hemostat's and incising with a 15 blade knife until I found the peritoneum itself. This was incised and then we opened the peritoneum the length of the incision. I used my index finger to sweep the underside of the peritoneum to be sure the wound protector and the hand port were snugly up against the underside of the peritoneum circumferentially. Once this was accomplished I placed my hand in the abdomen and then decided to place a left upper quadrant 5 mm port local anesthetic was infiltrated in the skin and with my hand between the bowel and the anterior abdominal wall this 5 mm port was carefully twisted into the abdomen until I could feel it safely within the abdomen. We then connected this to insufflation and the abdomen was insufflated to 15 mmHg pressure of CO2 gas. We carefully placed the 5 mm 0 degree scope and inspected the abdomen. Following this, we carefully placed and additional trocar, a 5 mm just lateral to and above the hand port site the right quadrant of the upper abdomen. This last 1 was placed under direct vision with the laparoscope. I carefully then inspected the entire abdomen. Without moving the small bowel we could look directly at the ileum entering the cecum and just proximal to it there was AU shaped mass of small bowel curled back on itself with whitish discoloration and creeping fat. It appeared that between this loop and is to mesenteries there was swelling and changes consistent with the mesenteric abscess that had been seen on CT. The cecum itself was fairly mobile the appendix looked normal. Approximately 2 f
[2021-09-13] MEDS: LACTATED RINGERS 1,000 ML 30 ML IV CONT (15:43)
--- NOTE | 2021-09-13 16:00 | PM.IMPN ---
Progress Note: A&P Assessment and Plan (1) Mesenteric abscess: Code(s): K65.1 - Peritoneal abscess Status: Acute Assessment and Plan: Consult Gen Surgery and GI thank you for your help abdomen CT Persistent abnormal thickening of the ileum which may be infectious or inflammatory (i.e. Crohn's disease). There is an enlarging adjacent mesenteric abscess which appears to contain contrast, likely from recent small bowel follow-through study. 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 Abdomenal CT from 08/29/21 Distal and terminal ileitis, 2.6 x 2.4 cm adjacent abscess, likely secondary to Crohn's disease Start Zosyn 3.375 Q6 hrs Continue IVF of NS at 125 ml/hr for hydration Blood cultures x2 continues to pend PRN Dilaudid for pain PRN Zofran for nausea. Trend labs WBC today is 18.2 Surgical intervention performed today Pathology pending from surgical intervention (2) Crohn's disease of ileum with abscess: Code(s): K50.014 - Crohn's disease of small intestine with abscess Status: Inactive Assessment and Plan: DX on 08/29-06/18 Still on very long and slow taper of steroids Abd/CT shows worsened thickening of the bowel GI on board Pre auth for Stelara initiated at GI office Colonoscopy from 08-31-21 found Crohn's affecting the terminal ileum with a complicated small abscess SBFT from 08-31-21 found Crohns's with at least several distal ileal and terminal ileal strictured segments with mucoidal fold irregularity and thickening Start steroids 40mg IV Q6H Protonix IV 40mg BID Patient is to have a surgical intervention wither Monday or Monday Time Spent With Patient Time with patient: Greater than 35 minutes Subjective Date/time seen: 09/13/21 1600 Interval history: 09/13/21 1600 Patient seen in the PACU. She was still really sedated and unable to provide a review of systems. Incision looked good. 09/12/21 1000 Patient is doing well today. She stated that she has not felt this good over the last few weeks. She denies any pain, chest pain, shortness of breath, nausea, vomiting, diarrhea, constipation. she is prepared for the next couple of days. 09/11/21 0945 Patient seems to be doing okay today. She did state that she had a terrible headache and she is all of a sudden having a moment and diaphoresis. She denied any chest pain, shortness of breath, nausea, vomiting, diarrhea, constipation. She did state that while she was on antibiotic she did have diarrhea but it got better after the antibiotic stopped. She also stated that she has not been a whole lot of pain however the nurse reported that she was up walking around pacing the room. I did let her know that she has a lot us know when she is in pain to help control her pain. Spoke with Dr. Ortiz who is going to have the images reviewed further to make a good plan of action for the abscess. 09/10/21? 19:05 This very pleasant 36 year old female patient with significant PMH of Crohn's disease (newly diagnosed in first week of August 2021,) and most recently a mesenteric abscess measuring 2.6cm x 2.4 cm as a result of the Crohn's (discharged from hospital 09/02/21), presents to the ER this evening with worsening abdominal pain. When she was previously hospitalized she was consulted on by Gen Velasquez and they opted for conservative management. GI consulted, Dr. Thompson, and he ordered a Barium swallow that passed without difficulty. She was meeting sepsis criteria at the time she was previously admitted and she responded favorably to the Zosyn and the Steroids that she was placed on during that admission and she was discharged to home with a slow Prednisone taper that she is still taking, and additional days of Abx therapy that she has since finished. She has been home since 09/02/21, and had a follow up appointment with Dr. Thompson in his office later this month at which time they were going to start insurance
[2021-09-13] MEDS: MORPHINE SULFATE (*CRX) 2 MG/ML INJ IV PUSH (17:06)
[2021-09-14] VITALS (12 sets, daily range): BP systolic 114–145; BP diastolic 52–83; PULSE 40–54; RESP 16; TEMP 36.1–36.6; O2SAT 96–100
[2021-09-14] MEDS: metroNIDAZOLE 500 MG/ISO 100ML 500 MG/100 ML BAG 100 MG IVPB ×2 (03:49→12:25)
[2021-09-14] MEDS: SODIUM CHLORIDE 0.9% IV 1,000 ML 125 ML IV CONT ×2 (03:49→14:37)
[2021-09-14] MEDS: methylPREDNISolone SOD SUCC 40 MG VIAL IV PUSH ×2 (05:46→17:43)
[2021-09-14 05:54] LABS: Basophils Percent Auto 0.1 % (0.2-1.2); Hematocrit 31.5 % (37.0-47.0); Hemoglobin 9.6 g/dL (12.0-15.0); Immature Granulocyte Absolute 0.07 K/mm3 (0.00-0.031); Immature Granulocyte Percent A 0.5 % (0-0.5); Lymphocytes Absolute Auto 0.39 K/mm3 (0.9-3.2); Lymphocytes Percent Auto 2.7 % (18.3-44.2); Mean Corpuscular HGB Conc 30.5 g/dl (32-36); Mean Corpuscular Hemoglobin 27.4 pg (26-34); Mean Corpuscular Volume 89.7 fl (80-100); Mean Platelet Volume 9.4 fl (7.4-10.4); Monocytes Absolute Auto 0.5 K/mm3 (0.1-0.6); Monocytes Percent Auto 3.3 % (2.6-8.5); Neutrophils Absolute Auto 13.5 K/mm3 (1.3-6.7); Neutrophils Percent Auto 93.4 % (45.5-73.1); Platelet Count Result 338 k/mm3 (150-375); Red Blood Count 3.51 M/mm3 (4.2-5.4); Red Cell Distribution Width 16.5 % (11.5-14.5); White Blood Count 14.4 K/mm3 (4.5-10.0)
[2021-09-14 06:22] LABS: Alanine Aminotransferase 18 U/L (6-35); Albumin Level 3.2 g/dL (3.5-5.1); Alkaline Phosphatase 73 U/L (38-126); Anion Gap 7 mmol/L (8-16); Aspartate Amino Transferase 16 U/L (14-36); Bilirubin,Total 0.5 mg/dL (0.2-1.3); Blood Urea Nitrogen 13 mg/dL (7-17); Calcium 7.7 mg/dL (8.4-10.2); Carbon Dioxide 24 mmol/L (22-30); Chloride 109 mmol/L (98-107); Estimated CRCL calculation 89 ml/min; Estimated Glomerular Filt Rate > 60; Glucose 130 mg/dL (65-110); Potassium 3.9 mmol/L (3.4-5.0); Sodium 140 mmol/L (137-145)
[2021-09-14] MEDS: ENOXAPARIN 40 MG/0.4 ML SYRINGE SUB-Q (08:43)
[2021-09-14] MEDS: PANTOPRAZOLE SODIUM IV 40 MG VIAL IV PUSH ×2 (08:43→20:24)
[2021-09-14] MEDS: MORPHINE SULFATE (*CRX) 2 MG/ML INJ IV PUSH ×2 (08:44→14:31)
--- NOTE | 2021-09-14 11:00 | P.PNIM_ITS ---
Progress Note: A&P Assessment and Plan (1) Status post small bowel resection: Code(s): Z90.49 - Acquired absence of other specified parts of digestive tract Status: Acute Assessment and Plan: * Ileocecectomy performed yesterday * POD1 * GS to manage * Antibiotic continued with Zosyn * Trend for signs of infection * Pain and antiemetics on board * Wound care * Trend for signs of infection * DVT deferred to GS (2) Mesenteric abscess: Code(s): K65.1 - Peritoneal abscess Status: Acute Assessment and Plan: * Consult Gen Surgery and GI thank you for your help * abdomen CT Persistent abnormal thickening of the ileum which may be infectious or inflammatory (i.e. Crohn's disease). There is an enlarging adjacent mesenteric abscess which appears to contain contrast, likely from recent small bowel follow-through study. 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 * Abdomenal CT from 08/29/21 Distal and terminal ileitis, 2.6 x 2.4 cm adjacent abscess, likely secondary to Crohn's disease * Start Zosyn 3.375 Q6 hrs * Continue IVF of NS at 125 ml/hr for hydration * Blood cultures x2 NGTD * PRN Dilaudid for pain * PRN Zofran for nausea. * Trend labs * WBC today is 14.4 * Surgical intervention of bowel resection performed on 09/13/21 * Pathology pending from surgical intervention (3) Crohn's disease of ileum with abscess: Code(s): K50.014 - Crohn's disease of small intestine with abscess Status: Inactive Assessment and Plan: * DX on 08/29-06/18 * Still on very long and slow taper of steroids * Abd/CT shows worsened thickening of the bowel * GI on board * Pre auth for Stelara initiated at GI office * Colonoscopy from 08-31-21 found Crohn's affecting the terminal ileum with a complicated small abscess * SBFT from 08-31-21 found Crohns's with at least several distal ileal and terminal ileal strictured segments with mucoidal fold irregularity and thickening * Start steroids 40mg IV Q6H * Protonix IV 40mg BID * Patient is to have a surgical intervention wither Monday or Monday Time Spent With Patient Time with patient: Greater than 35 minutes Subjective Date/time seen: 09/14/21 1100 Interval history: 09/14/21 1100 Patient was up moving around. She is very stable on her feet. She stated that she does not have much pain right now. She stated that she was told to walk around the room and get as much activity as possible. She did have good bowel sounds. She denies any chest pain, shortness of breath, nausea, vomiting, diarrhea, constipation, weakness or fatigue 09/13/21 1600 Patient seen in the PACU. She was still really sedated and unable to provide a review of systems. Incision looked good. 09/12/21 1000 Patient is doing well today. She stated that she has not felt this good over the last few weeks. She denies any pain, chest pain, shortness of breath, nausea, vomiting, diarrhea, constipation. she is prepared for the next couple of days. 09/11/21 0945 Patient seems to be doing okay today. She did state that she had a terrible headache and she is all of a sudden having a moment and diaphoresis. She denied any chest pain, shortness of breath, nausea, vomiting, diarrhea, constipation. She did state that while she was on antibiotic she did have diarrhea but it got better after the antibiotic stopped. She also stated that she has not been a whole lot of pain however the nurse reported that she was up walking around pacing the
--- NOTE | 2021-09-14 11:00 | PM.IMPN ---
Progress Note: A&P Assessment and Plan (1) Status post small bowel resection: Code(s): Z90.49 - Acquired absence of other specified parts of digestive tract Status: Acute Assessment and Plan: Ileocecectomy performed yesterday POD1 GS to manage Antibiotic continued with Zosyn Trend for signs of infection Pain and antiemetics on board Wound care Trend for signs of infection DVT deferred to GS (2) Mesenteric abscess: Code(s): K65.1 - Peritoneal abscess Status: Acute Assessment and Plan: Consult Gen Surgery and GI thank you for your help abdomen CT Persistent abnormal thickening of the ileum which may be infectious or inflammatory (i.e. Crohn's disease). There is an enlarging adjacent mesenteric abscess which appears to contain contrast, likely from recent small bowel follow-through study. 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 Abdomenal CT from 08/29/21 Distal and terminal ileitis, 2.6 x 2.4 cm adjacent abscess, likely secondary to Crohn's disease Start Zosyn 3.375 Q6 hrs Continue IVF of NS at 125 ml/hr for hydration Blood cultures x2 NGTD PRN Dilaudid for pain PRN Zofran for nausea. Trend labs WBC today is 14.4 Surgical intervention of bowel resection performed on 09/13/21 Pathology pending from surgical intervention (3) Crohn's disease of ileum with abscess: Code(s): K50.014 - Crohn's disease of small intestine with abscess Status: Inactive Assessment and Plan: DX on 08/29-06/18 Still on very long and slow taper of steroids Abd/CT shows worsened thickening of the bowel GI on board Pre auth for Stelara initiated at GI office Colonoscopy from 08-31-21 found Crohn's affecting the terminal ileum with a complicated small abscess SBFT from 08-31-21 found Crohns's with at least several distal ileal and terminal ileal strictured segments with mucoidal fold irregularity and thickening Start steroids 40mg IV Q6H Protonix IV 40mg BID Patient is to have a surgical intervention wither Monday or Monday Time Spent With Patient Time with patient: Greater than 35 minutes Subjective Date/time seen: 09/14/21 1100 Interval history: 09/14/21 1100 Patient was up moving around. She is very stable on her feet. She stated that she does not have much pain right now. She stated that she was told to walk around the room and get as much activity as possible. She did have good bowel sounds. She denies any chest pain, shortness of breath, nausea, vomiting, diarrhea, constipation, weakness or fatigue 09/13/21 1600 Patient seen in the PACU. She was still really sedated and unable to provide a review of systems. Incision looked good. 09/12/21 1000 Patient is doing well today. She stated that she has not felt this good over the last few weeks. She denies any pain, chest pain, shortness of breath, nausea, vomiting, diarrhea, constipation. she is prepared for the next couple of days. 09/11/21 0945 Patient seems to be doing okay today. She did state that she had a terrible headache and she is all of a sudden having a moment and diaphoresis. She denied any chest pain, shortness of breath, nausea, vomiting, diarrhea, constipation. She did state that while she was on antibiotic she did have diarrhea but it got better after the antibiotic stopped. She also stated that she has not been a whole lot of pain however the nurse reported that she was up walking around pacing the room. I did let her know that she has a lot us know when she is in pain to help control her pain. Spoke with Dr. Ortiz who is going to have the images reviewed further to make a good plan of action for the abscess. 09/10/21? 19:05 This very pleasant 36 year old female patient with significant PMH of Crohn's disease (newly diagnosed in first week of August 2021,) and most recently a mesenteric abscess measuring 2.6cm x 2.4 cm as a result of the Crohn'
--- NOTE | 2021-09-14 12:43 | WPDGIPROGNO ---
Progress Note: A&P Assessment and Plan (1) Crohn's disease of ileum with abscess: Code(s): K50.014 - Crohn's disease of small intestine with abscess Status: Inactive Assessment and Plan: and also fistula with stricture in ileum treated yesterday with surgery, on iv antibiotics will taper iv steroids will require biologic in 4-6 weeks (already submitted paperwork to start stelara as outpatient) (2) Mesenteric abscess: Code(s): K65.1 - Peritoneal abscess Status: Acute Assessment and Plan: treated (3) Status post small bowel resection: Code(s): Z90.49 - Acquired absence of other specified parts of digestive tract Status: Acute Subjective Date/time seen: 09/14/21 12:43 Interval history: doing well after surgery, she is comfortable Review of Systems Review of Systems: All systems reviewed & are unremarkable except as noted in HPI and below Exam Const: General: comfortable HENMT: General nose exam: Normal nares present Eyes: General: appearance normal, both eyes and all related structures Neck: Neck: supple Cardio: Rate: regular rate GI: Other: expected pain from recent surgery, no rebound, + BS Skin: General skin exam: normal color Neuro: Speech: normal speech Extrem: General: normal to inspection Psych: Affect: normal affect Objective Data Vital Signs Vital Signs: Vital Signs - 24 hr 09/13/21 15:43 09/13/21 15:55 09/13/21 16:10 Temperature 97.3 F L Pulse Rate 67 56 L 62 Respiratory Rate 13 13 16 Blood Pressure 115/65 122/75 132/75 Pulse Oximetry 99 100 100 Oxygen Delivery Simple Face Mask Simple Face Mask Simple Face Mask Oxygen Flow Rate 8 8 8 09/13/21 16:25 09/13/21 16:35 09/13/21 17:00 Temperature 97.7 F Pulse Rate 77 60 57 L Respiratory Rate 18 16 14 Blood Pressure 123/76 126/67 126/67 Pulse Oximetry 99 97 96 Oxygen Delivery Room Air Room Air Oxygen Flow Rate 09/13/21 17:15 09/13/21 17:45 09/13/21 18:23 Temperature 98.2 F 98.1 F 98.2 F Pulse Rate 54 L 56 L 55 L Respiratory Rate 14 14 14 Blood Pressure 123/76 115/73 114/71 Pulse Oximetry 96 97 96 Oxygen Delivery Oxygen Flow Rate 09/13/21 20:07 09/13/21 20:00 09/13/21 20:00 Temperature 97 F L Pulse Rate 55 L 51 L 55 L Respiratory Rate 14 14 Blood Pressure 123/70 Pulse Oximetry 98 98 Oxygen Delivery Room Air Oxygen Flow Rate 09/14/21 00:00 09/14/21 00:00 09/14/21 04:38 Temperature 97.3 F L 97 F L Pulse Rate 47 L 52 L 50 L Respiratory Rate 16 16 Blood Pressure 114/63 114/71 Pulse Oximetry 98 97 Oxygen Delivery Oxygen Flow Rate 09/14/21 04:00 09/14/21 08:29 09/14/21 10:31 Temperature 97.1 F L Pulse Rate 43 L 48 L Respiratory Rate 16 Blood Pressure 118/78 Pulse Oximetry 97 96 Oxygen Delivery Room Air Oxygen Flow Rate 09/14/21 08:00 Temperature Pulse Rate 43 L Respiratory Rate Blood Pressure Pulse Oximetry Oxygen Delivery Oxygen Flow Rate Intake/Output Intake/Output: Intake & Output 09/11/21 09/12/21 09/13/21 09/14/21 23:59 23:59 23:59 23:59 Intake Total 3280 3880 4200 450 Output Total 600 3 3 350 Balance 2680 9327 4197 100 Meds/Results Medications: Active Medications Generic Name Dose Route Start Last Admin Trade Name Freq PRN Reason Stop Dose Admin Acetaminophen 500 mg 09/13/21 16:38 Acetaminophen 500 Mg Tablet PO Q6H PRN Mild Pain (1-3) or Fever Hydrocodone Bitart/Acetaminophen 1 tab 09/13/21 16:38 Hydrocodone/Acetaminophen (*Crx) 5-325 Mg Tablet PO Q6H PRN pain 4-6 Hydrocodone Bitart/Acetaminophen 1 tab 09/13/21 16:38 Hydrocodone/Acetaminophen (*Crx) 7.5-325 Mg Tablet PO Q4H PRN Pain Rated 7-10 Enoxaparin Sodium 40 mg 09/14/21 09:00 09/14/21 08:43 Enoxaparin 40 Mg/0.4 Ml Syringe SUB-Q 40 mg DAILY MIMI Administration Piperacillin/Tazobactam/Dextrose 3.375 gm in 50 mls @ 100 mls/hr 09/11/21
--- NOTE | 2021-09-14 18:51 | WPDANESPN ---
Anes - Prog Note Post-Op Date/Time: 09/14/21 18:51 Cardiovascular status: normal Respiratory status: normal Airway patency: baseline Mental status: baseline Post-Op hydration status: normal Vital Signs: Last Vital Signs Temp 36.2 C L 09/14/21 18:23 Pulse 52 L 09/14/21 18:23 Resp 16 09/14/21 18:23 BP 145/81 H 09/14/21 18:23 Pulse Ox 97 09/14/21 18:23 O2 Del Method Room Air 09/14/21 10:31 O2 Flow Rate 8 09/13/21 16:10 Pain Score (VAS): 0 I/O: Intake & Output 09/14/21 09/14/21 09/14/21 07:59 15:59 23:59 Intake Total 400 1150 530 Output Total 350 Balance 400 800 530 Laboratory Tests 09/14/21 05:20 09/14/21 05:20 09/14/21 09/14/21 05:20 05:20 WBC 14.4 H RBC 3.51 L Hgb 9.6 L Hct 31.5 L MCV 89.7 MCH 27.4 MCHC 30.5 L RDW 16.5 H Plt Count 338 MPV 9.4 Immature Gran % (Auto) 0.5 Neut % (Auto) 93.4 H Lymph % (Auto) 2.7 L Cassia % (Auto) 3.3 Eos % (Auto) 0.0 Baso % (Auto) 0.1 L Lymph # (Auto) 0.39 L Cassia # (Auto) 0.5 Eos # (Auto) 0.0 Baso # (Auto) 0.0 Abs Immat Gran (auto) 0.07 H Absolute Neuts (auto) 13.5 H Absolute Nucleated RBC 0.0 Nucleated RBC % 0.0 Sodium 140 Potassium 3.9 Chloride 109 H Carbon Dioxide 24 Anion Gap 7 L BUN 13 Creatinine 0.90 Estim Creat Clear Calc 89 Estimated GFR > 60 Glucose 130 H Calcium 7.7 L Total Bilirubin 0.5 AST 16 ALT 18 Alkaline Phosphatase 73 Total Protein 6.0 L Albumin 3.2 L Microbiology 09/12/21 14:41 Stool Escherichia coli Shiga Toxins - Final 09/12/21 14:41 Stool Campylobacter Antigen Assay - Final 09/12/21 14:41 Stool Cryptosporidium Exam - Final 09/12/21 14:41 Stool Giardia Antigen (ANDRE) - Final Patient Feedback: Patient satisfied with anesthetic care.
--- NOTE | 2021-09-14 23:18 | PM.PNGS ---
Progress Note: A&P Assessment and Plan (1) Status post small bowel resection: Code(s): Z90.49 - Acquired absence of other specified parts of digestive tract Status: Acute Assessment and Plan: Surgical findings discussed with the patient. She seems to be resolving her ileus. For now will continue on clear liquids until she notices flatus or has a bowel movement. I structures a let the nurses know if she has a bowel movement and not flush it and then they could call me and we would start her on clears. For now continue sips of just coffee water Tea and the periodic surgery Ensure. (2) Mesenteric abscess: Code(s): K65.1 - Peritoneal abscess Status: Acute Assessment and Plan: This is now resolved/resected. Await pathology evaluation. Will stop antibiotics 24 hours after the surgery late this evening. (3) Hypertension: Code(s): I10 - Essential (primary) hypertension Status: Acute Assessment and Plan: Continue same treatment. Additional Plan Because the patient has been on steroids I continued it at 40 mg of Solu-Medrol Q 6 hours. Will ask GI to weigh in on how quickly we can now wean this in view of the resection of the abnormal portion of bowel. Moving the present dosing of steroids for a few more days but could begin weaning then. Subjective Subjective Date/Time Seen: 09/14/21 7:18 AM Post Op day: no nausea ( Doing well postop day 1) Patient reports: no new complaints, feels better, still having pain ( incisional.), no flatus and no bowel movement Interval history: Patient states that she has been able to sip water. She is willing to walk and has walked to the bathroom. Encouraged her to walk in the halls. Review of Systems Review of Systems: All systems reviewed & are unremarkable except as noted in HPI and below Constitutional: Constitutional: Reports as per HPI, Denies chills and Denies fever(s) Cardiovascular: Cardiovascular: Denies chest pain and Denies dyspnea Respiratory: Respiratory: Reports no additional respiratory complaints and Denies dyspnea Gastrointestinal: Gastrointestinal: Reports as per HPI and Denies bloating Musculoskeletal: Musculoskeletal: Reports no additional musculoskeletal complaints Neurologic: Denies memory loss Psychiatric: Psychiatric: Denies anxiety and Denies memory loss Exam Const: General: cooperative, comfortable, alert and awake Orientation/consciousness: patient oriented x3 HENMT: Head: normal to inspection Mouth: Yes moist mucous membranes Eyes: Sclera: sclerae normal Pupils: Equal, round and reactive pupils present Neck: Neck: normal visual inspection and no JVD Chest: Chest palpation & inspection: normal inspection of the chest Resp: Effort & Inspection: normal respiratory effort Auscultation: clear to auscultation bilaterally Cardio: Jugular venous distension: no JVD Rate: regular rate GI: Inspection: normal to inspection, incision ( Clean and dry after removing the abdominal binder.) and other ( Infraumbilical midline incision covered with Telfa and a Tegaderm.) Auscultation: Hypoactive bowel sounds present Other: Abdomen seems to be rounded about same is normal for her. Port sites healing well. Neuro: General: patient oriented x3 Cranial nerves: Yes Equal, round and reactive pupils present Objective Data Vital Signs Vital Signs: Vital Signs - 24 hr 09/14/21 00:00 09/14/21 00:00 09/14/21 04:38 Temperature 36.3 C L 36.1 C L Pulse Rate 47 L 52 L 50 L Respiratory Rate 16 16 Blood Pressure 114/63 114/71 Pulse Oximetry 98 97 Oxygen Delivery 09/14/21 04:00 09/14/21 08:29 09/14/21 10:31 Temperature 36.2 C L Pulse Rate 43 L 48 L Respiratory Rate 16 Blood Pressure 118/78 Pulse Oximetry 97 96 Oxygen Delivery Room Air 09/14/21 08:00 09/14/21 12:46 09/14/21 12:00 Temperature 36.5 C Pulse Rate 43 L 46 L 40 L Respiratory Rate 16 Blood Pressure 12
[2021-09-15] VITALS (9 sets, daily range): BP systolic 119–152; BP diastolic 52–77; PULSE 16–82; RESP 16–20; TEMP 35.6–36.6; O2SAT 97–100
[2021-09-15] MEDS: SODIUM CHLORIDE 0.9% IV 1,000 ML 125 ML IV CONT ×2 (01:53→09:36)
[2021-09-15] MEDS: methylPREDNISolone SOD SUCC 40 MG VIAL IV PUSH (05:25)
[2021-09-15 05:59] LABS: Hematocrit 29.6 % (37.0-47.0); Immature Granulocyte Absolute 0.06 K/mm3 (0.00-0.031); Immature Granulocyte Percent A 0.7 % (0-0.5); Lymphocytes Absolute Auto 0.69 K/mm3 (0.9-3.2); Lymphocytes Percent Auto 8.6 % (18.3-44.2); Mean Corpuscular HGB Conc 30.4 g/dl (32-36); Mean Corpuscular Hemoglobin 27.6 pg (26-34); Mean Corpuscular Volume 90.8 fl (80-100); Mean Platelet Volume 9.4 fl (7.4-10.4); Monocytes Absolute Auto 0.7 K/mm3 (0.1-0.6); Monocytes Percent Auto 8.9 % (2.6-8.5); Neutrophils Absolute Auto 6.6 K/mm3 (1.3-6.7); Neutrophils Percent Auto 81.8 % (45.5-73.1); Platelet Count Result 286 k/mm3 (150-375); Red Blood Count 3.26 M/mm3 (4.2-5.4); Red Cell Distribution Width 16.6 % (11.5-14.5); White Blood Count 8.1 K/mm3 (4.5-10.0)
[2021-09-15 06:18] LABS: Alanine Aminotransferase 16 U/L (6-35); Alkaline Phosphatase 69 U/L (38-126); Anion Gap 4 mmol/L (8-16); Aspartate Amino Transferase 14 U/L (14-36); Bilirubin,Total 0.2 mg/dL (0.2-1.3); Blood Urea Nitrogen 15 mg/dL (7-17); Carbon Dioxide 24 mmol/L (22-30); Chloride 110 mmol/L (98-107); Estimated CRCL calculation 89 ml/min; Estimated Glomerular Filt Rate > 60; Glucose 116 mg/dL (65-110); Magnesium 2.6 mg/dL (1.6-2.3); Potassium 3.9 mmol/L (3.4-5.0); Sodium 138 mmol/L (137-145)
[2021-09-15] MEDS: ENOXAPARIN 40 MG/0.4 ML SYRINGE SUB-Q (09:19)
[2021-09-15] MEDS: PANTOPRAZOLE SODIUM IV 40 MG VIAL IV PUSH (09:20)
--- NOTE | 2021-09-15 12:01 | P.PNIM_ITS ---
Progress Note: A&P Assessment and Plan (1) Status post small bowel resection: Code(s): Z90.49 - Acquired absence of other specified parts of digestive tract <Makeda Mckinley PA-C - Last Filed: 09/15/21 17:59> Status: Acute <Makeda Mckinley PA-C - Last Filed: 09/15/21 17:59> Assessment and Plan: * POD 2 from Ileocecectomy d/t crohn's disease. * GS to manage- diet is clear liquids until flatus or BM. * Antibiotic continued with Zosyn * Pain and antiemetics on board * Wound care * Trend for signs of infection * DVT prophylaxis deferred to GS <Makeda Mckinley PA-C - Last Filed: 09/15/21 17:59> (2) Mesenteric abscess: Code(s): K65.1 - Peritoneal abscess <Makeda Mckinley PA-C - Last Filed: 09/15/21 17:59> Status: Resolved <Makeda Mckinley PA-C - Last Filed: 09/15/21 17:59> Assessment and Plan: * Consult Gen Surgery and GI thank you for your help * Pt POD2 from ileocecectomy. * abdomen CT showed Persistent abnormal thickening of the ileum which may be infectious or inflammatory (i.e. Crohn's disease). There is an enlarging adjacent mesenteric abscess which appears to contain contrast, likely from recent small bowel follow-through study. 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 * Abdominal CT from 08/29/21 Distal and terminal ileitis, 2.6 x 2.4 cm adjacent abscess, likely secondary to Crohn's disease * Start Zosyn 3.375 Q6 hrs * Continue IVF of NS at 125 ml/hr for hydration * Blood cultures x2 NGTD * PRN Dilaudid for pain * PRN Zofran for nausea. * WBC today is 8.1 * Pathology pending from surgical intervention <Makeda Mckinley PA-C - Last Filed: 09/15/21 17:59> (3) Crohn's disease of ileum with abscess: Code(s): K50.014 - Crohn's disease of small intestine with abscess <Makeda Mckinley PA-C - Last Filed: 09/15/21 17:59> Status: Acute <Makeda Mckinley PA-C - Last Filed: 09/15/21 17:59> Assessment and Plan: * Colonoscopy from 08-31-21 found Crohn's affecting the terminal ileum with a complicated small abscess. SBFT from 08-31-21 found Crohns's with several distal ileal and terminal ileal strictured segments with mucoidal fold irregularity and thickening * Abd/CT shows worsened thickening of the bowel * GI on board, will taper iv steroids, pt will require biologic in 4-6 weeks (already submitted paperwork to start stelara as outpatient * Protonix IV 40mg BID <Makeda Mckinley PA-C - Last Filed: 09/15/21 17:59> Subjective Date/time seen: 09/15/21 12:01 Patient had her grandparents visiting her during my exam today, she did consent to discussing her healthcare in front of them. Patient reports she is feeling very well. She tolerated a full liquid diet, and has had 1 bowel movement so far. She is passing flatus. She does report some significant swelling did her IV fluids, which we are going to be discontinuing at this time. She denies chest pain, shortness of breath, fevers, chills, significant abdominal pain or swelling. <Makeda Mckinley PA-C - Last Filed: 09/15/21 17:59> Review of Systems 2 Review of Systems: All systems reviewed & are unremarkable except as noted in HPI and below <Makeda Mckinley PA-C - Last Filed: 09/15/21 17:59> Exam Narrative: GENERAL APPEARANCE: Alert and oriented x 3, in no apparent distress. HEENT: PERRL, EOMI. Sclerae anicteric. Moist mucous membranes. NECK: Supple. No JVD or obvious carotid bruits. RESPIRATORY: Respirations are nonlabored. Breath sounds are equal an
--- NOTE | 2021-09-15 12:01 | PM.IMPN ---
Progress Note: A&P Assessment and Plan (1) Status post small bowel resection: Code(s): Z90.49 - Acquired absence of other specified parts of digestive tract <Makeda Mckinley PA-C - Last Filed: 09/15/21 17:59> Status: Acute <Makeda Mckinley PA-C - Last Filed: 09/15/21 17:59> Assessment and Plan: POD 2 from Ileocecectomy d/t crohn's disease. GS to manage- diet is clear liquids until flatus or BM. Antibiotic continued with Zosyn Pain and antiemetics on board Wound care Trend for signs of infection DVT prophylaxis deferred to GS <Makeda Mckinley PA-C - Last Filed: 09/15/21 17:59> (2) Mesenteric abscess: Code(s): K65.1 - Peritoneal abscess <Makeda Mckinley PA-C - Last Filed: 09/15/21 17:59> Status: Resolved <Makeda Mckinley PA-C - Last Filed: 09/15/21 17:59> Assessment and Plan: Consult Gen Surgery and GI thank you for your help Pt POD2 from ileocecectomy. abdomen CT showed Persistent abnormal thickening of the ileum which may be infectious or inflammatory (i.e. Crohn's disease). There is an enlarging adjacent mesenteric abscess which appears to contain contrast, likely from recent small bowel follow-through study. 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 Abdominal CT from 08/29/21 Distal and terminal ileitis, 2.6 x 2.4 cm adjacent abscess, likely secondary to Crohn's disease Start Zosyn 3.375 Q6 hrs Continue IVF of NS at 125 ml/hr for hydration Blood cultures x2 NGTD PRN Dilaudid for pain PRN Zofran for nausea. WBC today is 8.1 Pathology pending from surgical intervention <Makeda Mckinley PA-C - Last Filed: 09/15/21 17:59> (3) Crohn's disease of ileum with abscess: Code(s): K50.014 - Crohn's disease of small intestine with abscess <Makeda Mckinley PA-C - Last Filed: 09/15/21 17:59> Status: Acute <Makeda Mckinley PA-C - Last Filed: 09/15/21 17:59> Assessment and Plan: Colonoscopy from 08-31-21 found Crohn's affecting the terminal ileum with a complicated small abscess. SBFT from 08-31-21 found Crohns's with several distal ileal and terminal ileal strictured segments with mucoidal fold irregularity and thickening Abd/CT shows worsened thickening of the bowel GI on board, will taper iv steroids, pt will require biologic in 4-6 weeks (already submitted paperwork to start stelara as outpatient Protonix IV 40mg BID <Makeda Mckinley PA-C - Last Filed: 09/15/21 17:59> Subjective Date/time seen: 09/15/21 12:01 Patient had her grandparents visiting her during my exam today, she did consent to discussing her healthcare in front of them. Patient reports she is feeling very well. She tolerated a full liquid diet, and has had 1 bowel movement so far. She is passing flatus. She does report some significant swelling did her IV fluids, which we are going to be discontinuing at this time. She denies chest pain, shortness of breath, fevers, chills, significant abdominal pain or swelling. <Makeda Mckinley PA-C - Last Filed: 09/15/21 17:59> Review of Systems Review of Systems: All systems reviewed & are unremarkable except as noted in HPI and below <Makeda Mckinley PA-C - Last Filed: 09/15/21 17:59> Exam Narrative: GENERAL APPEARANCE: Alert and oriented x 3, in no apparent distress. HEENT: PERRL, EOMI. Sclerae anicteric. Moist mucous membranes. NECK: Supple. No JVD or obvious carotid bruits. RESPIRATORY: Respirations are nonlabored. Breath sounds are equal and clear bilaterally. No wheezes, Rhonchi, or rales. CARDIOVASCULAR: Regular rate and rhythm with normal S1-S2. No murmurs, gallops, or rubs. GASTROINTESTINAL: Soft, flat, and benign. No mass, tenderness, guarding, or rebound. No organomegaly or hernia. Bowel sounds are present. abdominal binder present, well healing trocar sites, no evidence of infection. SKIN: Warm, dry, well perfused. Good turgor. No lesions,
--- NOTE | 2021-09-15 15:06 | WPDGIPROGNO ---
Progress Note: A&P Assessment and Plan (1) Crohn's disease of ileum with abscess: Code(s): K50.014 - Crohn's disease of small intestine with abscess Status: Inactive Assessment and Plan: abscess with fistula and ileum stricture treated with surgery, on iv antibiotics already tapering iv steroids then probably she can go home with oral but should be ok rather quick taper since area that was involved already removed but still will require biologic in 4-6 weeks to prevent recurrence (already submitted paperwork to start harpallara as outpatient) (2) Mesenteric abscess: Code(s): K65.1 - Peritoneal abscess Status: Acute Assessment and Plan: treated (3) Status post small bowel resection: Code(s): Z90.49 - Acquired absence of other specified parts of digestive tract Status: Acute Subjective Date/time seen: 09/15/21 15:06 Interval history: she tolerated liquid diet and already had BM, doing well Review of Systems Review of Systems: All systems reviewed & are unremarkable except as noted in HPI and below Exam Const: General: comfortable HENMT: General nose exam: Normal nares present Eyes: General: appearance normal, both eyes and all related structures Neck: Neck: supple Cardio: Rate: regular rate GI: Other: expected pain from recent surgery, no rebound, + BS Skin: General skin exam: normal color Neuro: Speech: normal speech Extrem: General: normal to inspection Psych: Affect: normal affect Objective Data Vital Signs Vital Signs: Vital Signs - 24 hr 09/14/21 16:00 09/14/21 18:23 09/14/21 20:00 Temperature 97.2 F L Pulse Rate 54 L 52 L 43 L Respiratory Rate 16 Blood Pressure 145/81 H Pulse Oximetry 97 Oxygen Delivery 09/14/21 20:53 09/14/21 20:00 09/15/21 00:00 Temperature 98 F Pulse Rate 50 L 50 L 36 L Respiratory Rate 16 16 Blood Pressure 128/52 L Pulse Oximetry 100 100 Oxygen Delivery Room Air 09/15/21 04:00 09/15/21 05:34 09/15/21 08:00 Temperature 97.2 F L Pulse Rate 36 L 42 L 50 L Respiratory Rate 16 Blood Pressure 137/77 Pulse Oximetry 97 Oxygen Delivery 09/15/21 12:00 Temperature Pulse Rate 43 L Respiratory Rate Blood Pressure Pulse Oximetry Oxygen Delivery Intake/Output Intake/Output: Intake & Output 09/12/21 09/13/21 09/14/21 09/15/21 23:59 23:59 23:59 23:59 Intake Total 3880 4200 3480 1200 Output Total 3 900 300 Balance 3877 4200 2580 900 Meds/Results Medications: Active Medications Generic Name Dose Route Start Last Admin Trade Name Freq PRN Reason Stop Dose Admin Acetaminophen 500 mg 09/13/21 16:38 Acetaminophen 500 Mg Tablet PO Q6H PRN Mild Pain (1-3) or Fever Hydrocodone Bitart/Acetaminophen 1 tab 09/13/21 16:38 Hydrocodone/Acetaminophen (*Crx) 5-325 Mg Tablet PO Q6H PRN pain 4-6 Hydrocodone Bitart/Acetaminophen 1 tab 09/13/21 16:38 Hydrocodone/Acetaminophen (*Crx) 7.5-325 Mg Tablet PO Q4H PRN Pain Rated 7-10 Enoxaparin Sodium 40 mg 09/14/21 09:00 09/15/21 09:19 Enoxaparin 40 Mg/0.4 Ml Syringe SUB-Q 40 mg DAILY MIMI Administration Sodium Chloride 1,000 mls @ 125 mls/hr 09/10/21 19:55 09/15/21 09:36 Normal Saline Iv IV CONT 125 mls/hr .Q8H MIMI Administration Methylprednisolone Sodium Succinate 40 mg 09/14/21 18:00 09/15/21 05:25 Methylprednisolone Sod Succ 40 Mg Vial IV PUSH 40 mg Q12H MIMI Administration Morphine Sulfate 2 mg 09/13/21 16:38 09/14/21 14:31 Morphine Sulfate (*Crx) 2 Mg/Ml Inj IV PUSH 2 mg Q2H PRN Administration Pain Rated 4-6 Morphine Sulfate 4 mg 09/13/21 16:38 Morphine Sulfate (*Crx) 4 Mg/Ml Inj IV PUSH Q3H PRN Pain Rated 7-10 Naloxone HCl 0.1 mg 09/13/21 16:38 Naloxone Hcl 0.4 Mg/Ml Vial IV PUSH Q2M PRN Opiate Reversal Ondansetron HCl 4 mg 09/12/21 21:44 09/13/21 05:20 Ondansetron Inj 4 Mg/
--- NOTE | 2021-09-15 20:20 | PM.PNGS ---
Progress Note: A&P Assessment and Plan (1) Status post small bowel resection: Code(s): Z90.49 - Acquired absence of other specified parts of digestive tract Status: Acute Assessment and Plan: Doing well postop day 2. She has had a bowel movement so advanced her diet to fulls. She is up walking. I let her know that she may be able to be discharged tomorrow if things continue to go well. Pathology noted but not discussed with patient today. Grown Crohn's disease is confirmed. (2) Mesenteric abscess: Code(s): K65.1 - Peritoneal abscess Status: Acute Assessment and Plan: This is now resolved/resected. Will stop antibiotics 24 hours after the surgery late this evening. (3) Hypertension: Code(s): I10 - Essential (primary) hypertension Status: Acute Assessment and Plan: Continue same treatment. Additional Plan Because the patient has been on steroids I continued it at 40 mg of Solu-Medrol Q 6 hours. Will ask GI to weigh in on how quickly we can now wean this in view of the resection of the abnormal portion of bowel. Moving the present dosing of steroids for a few more days but could begin weaning then. She appears to be tolerating the taper of the steroids well. Subjective Subjective Date/Time Seen: 09/15/21 08:20 Post Op day: 2 ( Doing well with less pain) Patient reports: feels better, flatus and bowel movement Interval history: No blood in the stool that she had. Pain is fairly minimal. She is up walking. Review of Systems Review of Systems: All systems reviewed & are unremarkable except as noted in HPI and below Constitutional: Constitutional: Reports as per HPI, Denies chills and Denies fever(s) Cardiovascular: Cardiovascular: Denies chest pain and Denies dyspnea Respiratory: Respiratory: Reports no additional respiratory complaints and Denies dyspnea Gastrointestinal: Gastrointestinal: Reports as per HPI and Denies bloating Musculoskeletal: Musculoskeletal: Reports no additional musculoskeletal complaints Neurologic: Denies memory loss Psychiatric: Psychiatric: Denies anxiety and Denies memory loss Exam Const: General: cooperative, comfortable, alert and awake Orientation/consciousness: patient oriented x3 HENMT: Head: normal to inspection Mouth: Yes moist mucous membranes Eyes: Sclera: sclerae normal Pupils: Equal, round and reactive pupils present Neck: Neck: normal visual inspection and no JVD Chest: Chest palpation & inspection: normal inspection of the chest Resp: Effort & Inspection: normal respiratory effort Auscultation: clear to auscultation bilaterally Cardio: Jugular venous distension: no JVD Rate: regular rate GI: Inspection: normal to inspection, incision ( Clean and dry after removing the abdominal binder.) and other ( Infraumbilical midline incision covered with Telfa and a Tegaderm.) Auscultation: normal bowel sounds Other: Abdomen seems to be rounded about same is normal for her. Port sites healing well. Neuro: General: patient oriented x3 Cranial nerves: Yes Equal, round and reactive pupils present Objective Data Vital Signs Vital Signs: Vital Signs - 24 hr 09/14/21 20:53 09/15/21 00:00 09/15/21 04:00 Temperature 36.6 C Pulse Rate 50 L 36 L 36 L Respiratory Rate 16 Blood Pressure 128/52 L Pulse Oximetry 100 09/15/21 05:34 09/15/21 08:00 09/15/21 12:00 Temperature 36.2 C L Pulse Rate 42 L 50 L 43 L Respiratory Rate 16 Blood Pressure 137/77 Pulse Oximetry 97 09/15/21 15:00 09/15/21 16:00 Temperature 35.6 C L Pulse Rate 16 L 82 Respiratory Rate 20 Blood Pressure 152/76 H Pulse Oximetry 100 Intake/Output Intake/Output: Intake & Output 09/12/21 09/13/21 09/14/21 09/15/21 23:59 23:59 23:59 23:59 Intake Total 3880 4200 3480 1740 Output Total 3 900 600 Balance 3877 4200 2580 1140 Meds/Results Medications: Active Medications Generic Name D
[2021-09-15] MEDS: PANTOPRAZOLE 40 MG TABLET PO (20:37)
[2021-09-16] VITALS: PULSE 44
[2021-09-16 04:00] VITALS: PULSE 45
[2021-09-16 04:39] VITALS: BP 124/77; PULSE 46; RESP 14; TEMP 36.5; O2SAT 98
[2021-09-16] MEDS: methylPREDNISolone SOD SUCC 40 MG VIAL IV PUSH (05:12)
[2021-09-16 05:41] LABS: Basophils Percent Auto 0.1 % (0.2-1.2); Eosinophils Percent Auto 0.1 % (0-4.4); Hematocrit 28.7 % (37.0-47.0); Hemoglobin 8.7 g/dL (12.0-15.0); Immature Granulocyte Absolute 0.07 K/mm3 (0.00-0.031); Immature Granulocyte Percent A 0.9 % (0-0.5); Lymphocytes Absolute Auto 1.53 K/mm3 (0.9-3.2); Mean Corpuscular HGB Conc 30.3 g/dl (32-36); Mean Corpuscular Hemoglobin 27.4 pg (26-34); Mean Corpuscular Volume 90.5 fl (80-100); Mean Platelet Volume 9.3 fl (7.4-10.4); Monocytes Absolute Auto 0.6 K/mm3 (0.1-0.6); Monocytes Percent Auto 8.4 % (2.6-8.5); Neutrophils Absolute Auto 5.4 K/mm3 (1.3-6.7); Neutrophils Percent Auto 70.5 % (45.5-73.1); Platelet Count Result 278 k/mm3 (150-375); Red Blood Count 3.17 M/mm3 (4.2-5.4); Red Cell Distribution Width 16.2 % (11.5-14.5); White Blood Count 7.7 K/mm3 (4.5-10.0)
[2021-09-16 08:00] VITALS: PULSE 43
[2021-09-16] MEDS: PANTOPRAZOLE 40 MG TABLET PO (09:42)
[2021-09-16] MEDS: ENOXAPARIN 40 MG/0.4 ML SYRINGE SUB-Q (09:42)
--- NOTE | 2021-09-16 09:45 | PM.DS ---
DS: Admitting Diagnosis Discharge Date 09/16/21 <Makeda Mckinley PA-C - Last Filed: 09/16/21 16:44> Admitting Diagnosis Abdominal Pain <Makeda Mckinley PA-C - Last Filed: 09/16/21 16:44> DS: Discharge Diagnosis Discharge Diagnosis (1) Status post small bowel resection: Code(s): Z90.49 - Acquired absence of other specified parts of digestive tract <Makeda Mckinley PA-C - Last Filed: 09/16/21 16:44> Status: Acute <Makeda Mckinley PA-C - Last Filed: 09/16/21 16:44> Assessment and Plan: POD 2 from Ileocecectomy d/t crohn's disease. Diet was advanced to low-fiber diet patient is tolerating this well. Antibiotic course with Zosyn has been completed Pain is now well controlled and patient will be discharged on Tylenol only per surgery. Patient will continue local wound care No leukocytosis today. Patient ok to D/C from GS and GI standpoint. <Makeda Mckinley PA-C - Last Filed: 09/16/21 16:44> (2) Mesenteric abscess: Code(s): K65.1 - Peritoneal abscess <Makeda Mckinley PA-C - Last Filed: 09/16/21 16:44> Status: Resolved <Makeda Mckinley PA-C - Last Filed: 09/16/21 16:44> Assessment and Plan: Consult Gen Surgery and GI thank you for your help Pt POD2 from ileocecectomy. abdomen CT showed Persistent abnormal thickening of the ileum which may be infectious or inflammatory (i.e. Crohn's disease). There is an enlarging adjacent mesenteric abscess which appears to contain contrast, likely from recent small bowel follow-through study. 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 Abdominal CT from 08/29/21 Distal and terminal ileitis, 2.6 x 2.4 cm adjacent abscess, likely secondary to Crohn's disease IV fluids have been discontinued as patient has sufficient PO intake. Blood cultures x2 NGTD No leukocytosis today Surgical path showed large/small intestine, distal ileum with portion of cecum and appendix showing Crohn's disease, mesenteric abscess, 2 benign lymph nodes. <Makeda Mckinley PA-C - Last Filed: 09/16/21 16:44> (3) Crohn's disease of ileum with abscess: Code(s): K50.014 - Crohn's disease of small intestine with abscess <Makeda Mckinley PA-C - Last Filed: 09/16/21 16:44> Status: Acute <Makeda Mckinley PA-C - Last Filed: 09/16/21 16:44> Assessment and Plan: Colonoscopy from 08-31-21 found Crohn's affecting the terminal ileum with a complicated small abscess. SBFT from 08-31-21 found Crohns's with several distal ileal and terminal ileal strictured segments with mucoidal fold irregularity and thickening. Surgical pathology from 09/14 confirm diagnosis. GI on board, will taper steroids, pt will require biologic in 4-6 weeks (already submitted paperwork to start stelara as outpatient Continue Protonix b.i.d. upon discharge Specific follow up to each specialty discussed with the patient.? Patient will complete a steroid taper for the next two weeks per GI.? <Makeda Mckinley PA-C - Last Filed: 09/16/21 16:44> (4) Anemia: Code(s): D64.9 - Anemia, unspecified <Makeda Mckinley PA-C - Last Filed: 09/16/21 16:44> Status: Acute <Makeda Mckinley PA-C - Last Filed: 09/16/21 16:44> Assessment and Plan: Hemoglobin 8.7 hematocrit 20.7 stable, CBC does look normocytic. Surgery does have some concern about B12 absorption given the patient's diagnosis of Crohn's disease. Will order iron studies and B12 levels for outpatient follow up. Will start iron supplementation in the mean time, and continue after discharge. Patient will be closely followed by GI and already has a follow up scheduled. <Makeda Mckinley PA-C - Last Filed: 09/16/21 16:44> DS: Summary Hospital Course Reason for hospitalization: Crohn's disease with mesenteric abscess <Makeda Mckinley PA-C - Last Filed: 09/16/21 16:44> Hospital Course: See above for full hospital course. <Makeda Hall
--- NOTE | 2021-09-16 10:00 | PM.PNGS ---
Progress Note: A&P Assessment and Plan (1) Status post small bowel resection: Code(s): Z90.49 - Acquired absence of other specified parts of digestive tract Status: Acute Assessment and Plan: Doing well postop day #3. She has had as many as 5-6 loose bowel movement over the last 24 hours. Diet is advanced to low-fiber.. She is up walking. I let her know that she may be able to be discharged tomorrow if things continue to go well. Pathology noted and discussed with patient today. Pathology shows Crohn's disease is confirmed. (2) Mesenteric abscess: Code(s): K65.1 - Peritoneal abscess Status: Acute Assessment and Plan: This is now resolved/resected. Hav stop antibiotics and will not start up unless there are signs of wound infection. Wounds look at good today. (3) Hypertension: Code(s): I10 - Essential (primary) hypertension Status: Acute Assessment and Plan: Continue same treatment. Probably needs follow-up with PCP sometime in the next month. Additional Plan Will ask GI to weigh in on how quickly we can now wean this in view of the resection of the abnormal portion of bowel. Moving the present dosing of steroids for a few more days but could begin weaning then. Patient and hospitalist will check with Dr. Thompson regarding this. Nurse knows to try to catch him regarding this to. Patient already has an appointment with him later this month that I encouraged her to keep. Also concerned about vitamin B12 and discussed with the hospitalist. They will draw some labs and decide with Dr. Thompson whether not supplementation just prior to discharge is appropriate. Patient is somewhat anemic but appears that hemoglobin is stable iron studies are indicated and will be done. Okay with me to start taking iron tablets in the next few days if having bowel movements okay. She appears to be tolerating the taper of the steroids well. Subjective Subjective Date/Time Seen: 09/16/21 10:00 Post Op day: 3 ( doing well not taking pain medication) Patient reports: flatus and bowel movement Interval history: patient denies nausea. She states she is ready to go home. I did have a thorough discussion with her about home going instructions and does or in her discharge information. I informed her about the anemia which can go along with surgery and having Crohn's. She needs to be concerned about her B12 levels so these will be checked and I have discussed that with her hospitalist. All questions answered. Review of Systems Review of Systems: All systems reviewed & are unremarkable except as noted in HPI and below Constitutional: Constitutional: Reports as per HPI, Denies chills and Denies fever(s) Cardiovascular: Cardiovascular: Denies chest pain and Denies dyspnea Respiratory: Respiratory: Reports no additional respiratory complaints and Denies dyspnea Gastrointestinal: Gastrointestinal: Reports as per HPI and Denies bloating Comments: Had 6 loose stools over the last 24 hours but no blood in them. (She knows not to take Dulcalax tablets anymore unless she goes for a full 24 hours without a bowel movement). Musculoskeletal: Musculoskeletal: Reports no additional musculoskeletal complaints Neurologic: Denies memory loss Psychiatric: Psychiatric: Denies anxiety and Denies memory loss Exam Const: General: cooperative, comfortable, alert and awake Orientation/consciousness: patient oriented x3 HENMT: Head: normal to inspection Mouth: Yes moist mucous membranes Eyes: Sclera: sclerae normal Pupils: Equal, round and reactive pupils present Neck: Neck: normal visual inspection and no JVD Chest: Chest palpation & inspection: normal inspection of the chest Resp: Effort & Inspection: normal respiratory effort Auscultation: clear to auscultation bilaterally Cardio: Jugular venous distension: no JVD Rate: regular rate GI: Inspection: incision ( All inci
[2021-09-16 12:00] VITALS: PULSE 46
[2021-09-16] MEDS: POLYSACCHARIDE IRON COMPLEX 150 MG CAPSULE PO (13:01)
[2021-09-16 14:49] VITALS: BP 119/66; PULSE 54; RESP 18; TEMP 36.6; O2SAT 100
== END 2021-09-16 17:37 | disposition home or self-care (01) | DRG 329 ==
LOC: ANHED 17:02 → ANH3MED 19:24
PROVIDERS: Emergency Medicine; Nurse Practitioner; Surgery; Admitting Provider Family Medicine; Emergency Provider Preventive Medicine Aerospace Medicine; PCP Internal Medicine Gastroenterology; Visit Provider Student in an Organized Health Care Education/Training Program
PROC: 0DTF4ZZ Resection of Right Large Intestine, Percutaneous Endoscopic Approach (ICD-10-PCS; CPT 44204; principal; 2021-09-13 12:00)
DX: K50.014 Crohn's disease of small intestine with abscess (principal); K65.1 Peritoneal abscess; Z68.41 Body mass index [BMI] 40.0-44.9, adult; D64.9 Anemia, unspecified; E66.9 Obesity, unspecified; I10 Essential (primary) hypertension; R82.90 Unspecified abnormal findings in urine; K82.4 Cholesterolosis of gallbladder; L98.8 Other specified disorders of the skin and subcutaneous tissue; K50.013 Crohn's disease of small intestine with fistula
CPT/HCPCS: 36415; 74019; 74177; 76705; 80048; 80053; 81001; 81025; 83605; 83690; 83735; 85025; 85610; 85730; 86140; 86850; 86900; 86901; 87040; 87045; 87086; 87269; 87272; 87427; 88307; 89055; 96365; 96375; 99285; A9270; C9113; J0131; J1100; J1170; J1650; J1720; J1885; J2250; J2270; J2405; J2543; J2704; J2710; J2920; J3010; J7030; J7120; Q9967

== ENCOUNTER 2021-09-27 10:56 | Outpatient (CLI) | payer BC, SELFPAY ==
[2021-09-27 11:23] LABS: Hemoglobin 11.1 g/dL (12.0-15.0); Mean Corpuscular Hemoglobin 27.6 pg (26-34); Mean Platelet Volume 9.5 fl (7.4-10.4); Platelet Count Result 238 k/mm3 (150-375); Red Blood Count 4.02 M/mm3 (4.2-5.4); Red Cell Distribution Width 17.1 % (11.5-14.5)
[2021-09-27 11:47] LABS: Iron 42 ug/dL (37-170)
[2021-09-27 11:57] LABS: Percent Iron Saturation 13 % (20-50)
== END 2021-09-27 10:57 | disposition home or self-care (01) ==
LOC: ANHLAB 10:58
PROVIDERS: Visit Provider Student in an Organized Health Care Education/Training Program
DX: D64.9 Anemia, unspecified (principal)
CPT/HCPCS: 36415; 82607; 83540; 83550; 85027

== ENCOUNTER 2022-02-25 12:02 | Outpatient (CLI) | payer BC, SELFPAY ==
[2022-02-25 12:34] LABS: Basophils Absolute Auto 0.1 K/mm3 (0.0-0.1); Eosinophils Absolute Auto 0.7 K/mm3 (0-0.3); Eosinophils Percent Auto 11.3 % (0-4.4); Hematocrit 41.6 % (37.0-47.0); Hemoglobin 13.3 g/dL (12.0-15.0); Immature Granulocyte Absolute 0.02 K/mm3 (0.00-0.031); Immature Granulocyte Percent A 0.3 % (0-0.5); Lymphocytes Absolute Auto 1.33 K/mm3 (0.9-3.2); Lymphocytes Percent Auto 21.1 % (18.3-44.2); Mean Corpuscular Hemoglobin 28.4 pg (26-34); Mean Corpuscular Volume 88.7 fl (80-100); Mean Platelet Volume 9.5 fl (7.4-10.4); Monocytes Absolute Auto 0.7 K/mm3 (0.1-0.6); Monocytes Percent Auto 10.5 % (2.6-8.5); Neutrophils Absolute Auto 3.5 K/mm3 (1.3-6.7); Neutrophils Percent Auto 55.8 % (45.5-73.1); Platelet Count Result 272 k/mm3 (150-375); Red Blood Count 4.69 M/mm3 (4.2-5.4); Red Cell Distribution Width 14.9 % (11.5-14.5); White Blood Count 6.3 K/mm3 (4.5-10.0)
[2022-02-25 12:53] LABS: Alanine Aminotransferase 31 U/L (6-35); Albumin Level 4.5 g/dL (3.5-5.1); Alkaline Phosphatase 89 U/L (38-126); Anion Gap 7 mmol/L (8-16); Aspartate Amino Transferase 31 U/L (14-36); Bilirubin,Total 0.4 mg/dL (0.2-1.3); Blood Urea Nitrogen 12 mg/dL (7-17); Calcium 8.9 mg/dL (8.4-10.2); Carbon Dioxide 26 mmol/L (22-30); Chloride 106 mmol/L (98-107); Cholesterol 192 mg/dL (0-200); Estimated Glomerular Filt Rate > 60; Glucose 92 mg/dL (65-110); HDL Direct 56 mg/dL; Potassium 4.3 mmol/L (3.4-5.0); Sodium 139 mmol/L (137-145); Triglycerides 92 mg/dL (<150)
[2022-02-25 13:04] LABS: LDL Cholesterol Direct 81 mg/dL
== END 2022-02-25 12:03 | disposition home or self-care (01) ==
PROVIDERS: PCP Family Medicine; Visit Provider Family Medicine
DX: D64.9 Anemia, unspecified (principal); I10 Essential (primary) hypertension; E66.9 Obesity, unspecified
CPT/HCPCS: 36415; 80053; 80061; 82607; 82728; 84443; 85025

== ENCOUNTER 2022-09-06 01:13 | Day surgery (SDC) | payer BC, SELFPAY ==
[2022-08-25 13:39] VITALS: BMI 36.9
[2022-09-06 06:24] VITALS: BP 143/98; PULSE 91; RESP 16; TEMP 36; O2SAT 100
[2022-09-06] MEDS: LACTATED RINGERS 1,000 ML 150 ML IV CONT (06:34)
--- NOTE | 2022-09-06 06:56 | WPDANESEPPF ---
Anes - Initial Pre Proc Eval Procedure: Operation Date: 09/06/22 07:30 Proposed Procedures p Colonoscopy - Martín Stephens MD Date/Time: 09/06/22 06:56 Surgeon: Martín Stephens MD Pre Op Diagnosis: Chron's disease Patient Data Age: 37 Gender: F Height: 1.63 m Weight: 102 kg Last Vital Signs Temp 36.0 C L 09/06/22 06:24 Pulse 91 09/06/22 06:24 Resp 16 09/06/22 06:24 BP 143/98 H 09/06/22 06:24 Pulse Ox 100 09/06/22 06:24 O2 Del Method Room Air 09/06/22 06:24 Allergies Allergy/AdvReac Type Severity Reaction Status Date / Time No Known Allergies Allergy Verified 09/06/22 06:20 Home Medications Medication Instructions Recorded Confirmed Type vedolizumab 300 mg intravenous 300 mg IV ONCE #1 ea 10/07/21 09/06/22 Rx solution (Entyvio) polysaccharide iron complex 150 mg 150 mg PO DAILY@0800 30 days #90 04/06/22 09/06/22 Rx iron capsule caps Patient hx anesthesia problems: none Family hx anesthesia problems: none Results Review: All pre-operative results and documents have been reviewed as part of the pre-operative evaluation. [facility] Past Medical History Medical History Abdominal pain Abnormal finding on urinalysis Advanced maternal age (AMA) in Anemia Crohn's disease of ileum with abscess Encounter for female sterilization procedure Mesenteric abscess Obesity Obesity (BMI 30-39.9) Sepsis Tachycardia Term Transaminitis Surgical History Surgical History H/O tubal ligation 02/14/20 [facility] History of colon surgery LAP hand assisted Ileal-cecectomy with anastomosis on 09/13/21./ appendectomy Previous section x2 Family History Family History Mother Hypertension Heart disease Acute myocardial infarction Grandparent Brain cancer Grandparent Diabetes mellitus Social History Social History (Reviewed 05/19/22 @ 10:53 by Celia Fournier CMAMunir Social History: Patient lives at home with her Norman who will be her surrogate. They have 2 kids 1 boy 1 girl and no pets. 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 [employer] Gender identity (if verbalized by the patient): Female Sexual Orientation (if Verbalized by the Patient): Straight or Heterosexual Spiritual care concerns: No Agree to blood products: Yes Anes - Eval Final PreProcedure Day of Procedure 09/06/22 06:56 Patient weight: obese Heart: regular rate and rhythm Lungs: clear to auscultation Airway: Mallampati scale class II Neurological: alert and oriented Last oral intake: >/= 8 hours ASA classification: III Emergent: no Anesthetic plan: proceed Anesthesia type and monitoring: general GIVS and standard monitoring Results Review: All pre-operative results and documents have been reviewed as part of the pre-operative evaluation. Informed Consent: The patient's anesthetic plan and its attendant risks and benefits were discussed with the patient/family/POA. Questions were solicited and answers provided to the satisfaction of the patient/family/PO
--- NOTE | 2022-09-06 07:26 | PM.HPGS ---
History of Present Illness History of Present Illness Consent: Risks, benefits, and alternatives have been discussed and questions answered. Patient agrees to proceed with procedure. Chief complaint: Chron's disease Narrative: Latoya Doshi is a 37 year old female diagnosed with Crohn's disease complicated with fistula and and aliya intestinal mesenteric abscess treated surgically (also confirmed by pathology) 08/2021- also had colonoscopy previous to surgery with difficulty to get into TI. She has been on entyvio since 09/2021, she is doing ok other than diarrhea. Review of Systems Constitutional: Constitutional: Denies headache(s) and Denies weakness Eyes: Eyes: Denies blurry vision ENT: Reports Normal hearing present, Denies headache(s) and Denies neck pain Cardiovascular: Cardiovascular: Denies chest pain and Denies dyspnea Respiratory: Respiratory: Denies dyspnea Gastrointestinal: Gastrointestinal: Reports no additional gastrointestinal complaints Genitourinary: Genitourinary: Denies dysuria Musculoskeletal: Musculoskeletal: Denies neck pain Integumentary/Breasts: Skin/Breast: Denies dry skin Neurologic: Reports Normal hearing present, Denies headache(s) and Denies weakness Psychiatric: Psychiatric: Denies anxiety Endocrine: Endocrine: Denies change in body appearance Hematologic/Lymphatic: Hematologic/Lymphatic: Denies easy bleeding Allergic/Immunologic: Allergic/Immunologic: Denies urticaria PMFSH Past Medical History Medical History Abdominal pain Abnormal finding on urinalysis Advanced maternal age (AMA) in Anemia Crohn's disease of ileum with abscess Encounter for female sterilization procedure Mesenteric abscess Obesity Obesity (BMI 30-39.9) Sepsis Tachycardia Term Transaminitis Surgical History Surgical History H/O tubal ligation 02/14/20 [facility] History of colon surgery LAP hand assisted Ileal-cecectomy with anastomosis on 09/13/21./ appendectomy Previous section x2 Family History Family History Mother Hypertension Heart disease Acute myocardial infarction Grandparent Brain cancer Grandparent Diabetes mellitus Social History Social History Social History: Patient lives at home with her Norman who will be her surrogate. They have 2 kids 1 boy 1 girl and no pets. 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
[2022-09-06 07:45] VITALS: BP 120/61; PULSE 100; RESP 18; O2SAT 100
[2022-09-06 07:55] VITALS: BP 116/39; PULSE 76; RESP 24; O2SAT 100
== END 2022-09-06 08:12 | disposition home or self-care (01) ==
PROVIDERS: PCP Family Medicine; Visit Provider Internal Medicine Gastroenterology
PROC: 0DJD8ZZ Inspection of Lower Intestinal Tract, Via Natural or Artificial Opening Endoscopic (ICD-10-PCS; CPT 45378; principal; 2022-09-06 07:30)
DX: K50.819 Crohn's disease of both small and large intestine with unspecified complications (principal); Z98.0 Intestinal bypass and anastomosis status; Z90.49 Acquired absence of other specified parts of digestive tract
CPT/HCPCS: 45380; 88305; J2704; J7120

== ENCOUNTER 2023-02-03 14:16 | Outpatient (CLI) | payer BC, SELFPAY ==
[2023-02-07 11:04] LABS: NIL 0.02 IU/mL; Quantiferon TB Plus, 1T NEGATIVE (NEGATIVE)
== END 2023-02-03 14:17 | disposition home or self-care (01) ==
LOC: ANHLAB 14:17
PROVIDERS: PCP Family Medicine; Visit Provider Internal Medicine Gastroenterology
DX: K50.819 Crohn's disease of both small and large intestine with unspecified complications (principal)
CPT/HCPCS: 36415; 86480

== ENCOUNTER 2023-06-29 12:17 | Outpatient (CLI) | payer BC, SELFPAY ==
[2023-06-29 12:39] LABS: Hematocrit 41.1 % (37.0-47.0); Hemoglobin 13.2 g/dL (12.0-15.0); Mean Corpuscular HGB Conc 32.1 g/dl (32-36); Mean Corpuscular Hemoglobin 28.9 pg (26-34); Mean Corpuscular Volume 90.1 fl (80-100); Mean Platelet Volume 9.8 fl (7.4-10.4); Platelet Count Result 289 k/mm3 (150-375); Red Blood Count 4.56 M/mm3 (4.2-5.4); Red Cell Distribution Width 13.4 % (11.5-14.5)
[2023-06-29 12:56] LABS: Alanine Aminotransferase 23 U/L (6-35); Albumin Level 4.6 g/dL (3.5-5.1); Alkaline Phosphatase 85 U/L (38-126); Anion Gap 9 mmol/L (4-12); Aspartate Amino Transferase 29 U/L (14-36); Bilirubin,Total 0.5 mg/dL (0.2-1.3); Blood Urea Nitrogen 11 mg/dL (7-17); Calcium 9.7 mg/dL (8.4-10.2); Carbon Dioxide 24 mmol/L (22-30); Chloride 106 mmol/L (98-107); Estimated Glomerular Filt Rate > 60; Glucose 101 mg/dL (65-110); Potassium 4.1 mmol/L (3.4-5.0); Sodium 139 mmol/L (137-145)
[2023-06-29 13:25] LABS: Erythrocyte Sedimentation Rate 26 mm/hr (0-20)
== END 2023-06-29 12:18 | disposition home or self-care (01) ==
LOC: ANHLAB 12:18
PROVIDERS: PCP Family Medicine; Visit Provider Internal Medicine Gastroenterology
DX: K50.90 Crohn's disease, unspecified, without complications (principal); R19.7 Diarrhea, unspecified; Z90.49 Acquired absence of other specified parts of digestive tract
CPT/HCPCS: 36415; 80053; 85027; 85652; 86140

== ENCOUNTER 2024-02-01 11:04 | Outpatient (CLI) | payer BC, SELFPAY ==
[2024-02-01 11:53] LABS: Hematocrit 38.3 % (37.0-47.0); Hemoglobin 11.6 g/dL (12.0-15.0); Mean Corpuscular HGB Conc 30.3 g/dl (32-36); Mean Corpuscular Hemoglobin 25.6 pg (26-34); Mean Corpuscular Volume 84.5 fl (80-100); Mean Platelet Volume 9.9 fl (7.4-10.4); Platelet Count Result 316 k/mm3 (150-375); Red Blood Count 4.53 M/mm3 (4.2-5.4); Red Cell Distribution Width 14.8 % (11.5-14.5); White Blood Count 6.5 K/mm3 (4.5-10.0)
[2024-02-01 12:06] LABS: Alanine Aminotransferase 17 U/L (6-35); Albumin Level 4.6 g/dL (3.5-5.1); Alkaline Phosphatase 92 U/L (38-126); Anion Gap 7 mmol/L (4-12); Aspartate Amino Transferase 25 U/L (14-36); Bilirubin,Total 0.5 mg/dL (0.2-1.3); Blood Urea Nitrogen 10 mg/dL (7-17); CRP 1.9 mg/dL (<1.0); Calcium 9.4 mg/dL (8.4-10.2); Carbon Dioxide 28 mmol/L (22-30); Chloride 105 mmol/L (98-107); Estimated Glomerular Filt Rate > 60; Glucose 92 mg/dL (65-110); Potassium 4.3 mmol/L (3.4-5.0); Sodium 140 mmol/L (137-145)
[2024-02-01 12:25] LABS: Erythrocyte Sedimentation Rate 17 mm/hr (0-20)
== END 2024-02-01 11:05 | disposition home or self-care (01) ==
LOC: ANHLAB 11:06
PROVIDERS: PCP Family Medicine; Visit Provider Internal Medicine Gastroenterology
DX: K50.90 Crohn's disease, unspecified, without complications (principal); Z90.49 Acquired absence of other specified parts of digestive tract
CPT/HCPCS: 36415; 80053; 85027; 85652; 86140

== ENCOUNTER 2024-02-02 14:59 | Outpatient (CLI) | payer BC, SELFPAY | END 2024-02-02 15:00 | disposition home or self-care (01) | LOC: ANHLAB 14:59 | PROVIDERS: PCP Family Medicine; Visit Provider Internal Medicine Gastroenterology | DX: K50.90 Crohn's disease, unspecified, without complications (principal); Z90.49 Acquired absence of other specified parts of digestive tract | CPT/HCPCS: 83993 ==

== ENCOUNTER 2024-02-13 13:28 | Outpatient (CLI) | payer BC, SELFPAY ==
--- NOTE | ~2024-02-13 | XR_ITS ---
Clinical Indication: Cough PA and lateral views of the chest: Comparison: None Findings: The lungs are clear, without evidence of focal consolidation or pleural effusion. Cardiome diastinal silhouette is within normal limits. Bones and soft tissues are unremarkable. Impression: Normal chest. Reviewed, dictated and finalized at [facility]. ATRIC CLINICAL DIETICIAN Impression: Normal chest.
== END 2024-02-13 13:29 | disposition home or self-care (01) ==
LOC: GOSHIMG 13:29
PROVIDERS: PCP Family Medicine; Visit Provider Student in an Organized Health Care Education/Training Program
DX: R05.9 Cough, unspecified (principal)
CPT/HCPCS: 71046

== ENCOUNTER 2024-06-13 11:24 | Outpatient (CLI) | payer BC, SELFPAY ==
--- OUTSIDE RECORDS SUMMARY | 2024-06-13 12:17 | XMS_ITS | Clinical Summary ---
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 Gender Identity Not on file Sexual Orientation Not on file Obstetrics History Last Filed Vital Signs Vital Sign Reading Time Taken Comments Blood Pressure 130/84 05/19/2021 11:56 AM CDT Pulse 100 05/19/2021 11:56 AM CDT Temperature 37.1 C (98.7 F) 05/19/2021 11:56 AM CDT Respiratory Rate 16 05/19/2021 11:56 AM CDT Oxygen Saturation 100% 05/19/2021 11:56 AM CDT Inhaled Oxygen Concentration - - Weight 100.2 kg (221 lb) 05/19/2021 11:56 AM CDT Height 162.6 cm (5' 4 ) 05/19/2021 11:56 AM CDT Body Mass Index 37.93 05/19/2021 11:56 AM CDT Plan of Treatment Not on file Insurance [facility] Care Teams Cellular Equipment Repairer Relationship Specialty Start Date End Date No, Physician PCP - General 02/05/21
--- OUTSIDE RECORDS SUMMARY | 2024-06-13 12:17 | XMS_ITS | Referral Summary ---
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
--- OUTSIDE RECORDS SUMMARY | 2024-06-13 12:17 | XMS_ITS | Clinical Summary ---
Author Organization [facility] Address [address] [place], [place] [id number] Care Team Providers Care Building Materials Sales Attendant Name Role Phone Unavailable Primary Care Provider Unavailabl e Social History Tobacco Use Types Packs/Day Years Used Date Smoking Tobacco: Never Assessed Comments Unknown Sex and Gender Information Value Date Recorded Sex Assigned at Not on file Legal Sex Female 4:43 PM CDT Gender Identity Not on file Sexual Orientation Not on file Plan of Treatment Health Maintenance Due Date Last Done Comments Cervical Cancer Screening Pa p Smear (Age 30 to 64) Every 3 Years 1984 Annual Physical 08/18/1987 Hepatitis C 2002 DTaP, Tdap and Td Vaccines ( 1 - Tdap) 08/18/2003 Hepatitis B Vaccines (1 of 3 - 19+ 3-dose series) 08/18/2003 Cervical Cancer Screening Pa p with HPV Testing (Age 30 to 64) Every 5 Years 2014 Cervical Cancer Screening with HPV 2014 COVID-19 Vaccine (2023-2 5 season) 2023 HPV Vaccines Aged Out No longer eligi ble based on patient's age to complete this topic Meningococcal B Vaccine Aged Out No l onger eligible based on patient's age to complete this topic Meningococcal Vaccine Aged Out No che jessica eligible based on patient's age to complete this topic Pneumococcal Vaccine: Pediat rics (0 to 5 Years) and At-Risk Patients (6 to 49 Years) Aged Out No longer eligible b ased on patient's age to complete this topic RSV Immunizations Under 20 Months Aged Out No longer eligible based on patient's age to complete this topic
--- OUTSIDE RECORDS SUMMARY | 2024-06-13 12:17 | XMS_ITS | Clinical Summary ---
Author Organization 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 Gender Identity Not on file Sexual Orientation Not on file Plan of Treatment Health Maintenance Due Date Last Done Comments Hepatitis C Virus (HCV) Screening 1984 Hepatitis B Immunization (1 of 3 - 19+ 3-dose series) 08/18/2003 Pap Smear 2005 Cervical Cancer Screening (CCS) 2014 HPV/Cotest 2014 Influenza Immunization (#1) 2023 12/30/2019 SARS-COV-2 Immunization ( season) 2023 Respiratory Syncytial Virus (RSV) Immunization (Adult) (1 - 1-dose 75+ series) 08/18/2059 DTaP/Tdap/Td Immunization Discontinued 12/30/2019 TdaP Immunization Completed 12/30/2019 Meningococcal Immunization (ACWY) Aged Out No longer eligible based on patient's age to complete this topic Pneumococcal Immunization Combined Aged Out No longer eligible b ased on patient's age to complete this topic Rotavirus Immunization Aged Out No lo nger eligible based on patient's age to complete this topic
[2024-06-13 12:41] LABS: Syphilis IgG/IgM Antibody Negative (Negative)
[2024-06-13 12:46] LABS: Hepatitis B Surface Antigen Negative (Negative)
[2024-06-13 12:52] LABS: HAV RESULT Negative (Negative); Hepatitis B Core IgM Result Negative (Negative)
[2024-06-13 12:54] LABS: HIV 1/2 Ab P24 Ag Result Negative (Negative)
[2024-06-13 13:03] LABS: Hepatitis C Virus Antibody Negative (Negative)
== END 2024-06-13 11:25 | disposition home or self-care (01) ==
LOC: ANHLAB 11:27
PROVIDERS: PCP Family Medicine; Visit Provider Obstetrics & Gynecology
DX: Z11.3 Encounter for screening for infections with a predominantly sexual mode of transmission (principal); Z20.828 Contact with and (suspected) exposure to other viral communicable diseases
CPT/HCPCS: 36415; 80074; 86593; 86695; 86696; 86703; G0432

== ENCOUNTER 2024-06-25 00:39 | Day surgery (SDC) | payer BC, SELFPAY ==
[2024-06-14 11:57] VITALS: BMI 36.9
--- OUTSIDE RECORDS SUMMARY | 2024-06-25 00:43 | XMS_ITS | Referral Summary ---
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
--- OUTSIDE RECORDS SUMMARY | 2024-06-25 00:43 | XMS_ITS | Clinical Summary ---
Author Organization 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
--- OUTSIDE RECORDS SUMMARY | 2024-06-25 00:43 | XMS_ITS | Clinical Summary ---
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
--- OUTSIDE RECORDS SUMMARY | 2024-06-25 00:43 | XMS_ITS | Clinical Summary ---
Author Organization [facility] Address [address] [place], [place] [id number] Care Team Providers Care Circus Laborer Name Role Phone Unavailable Primary Care Provider [...]
[2024-06-25 12:11] VITALS: BP 142/90; PULSE 94; RESP 20; TEMP 36.5; O2SAT 99; BMI 37.2
[2024-06-25] MEDS: LACTATED RINGERS 1,000 ML 150 ML IV CONT (12:23)
[2024-06-25 12:26] LABS: BEDSIDEPREGUCG Negative (Negative)
--- NOTE | 2024-06-25 12:27 | PM.HPGS ---
History of Present Illness History of Present Illness Consent: Risks, benefits, and alternatives have been discussed and questions answered. Patient agrees to proceed with procedure. Chief complaint: Crohn's disease of both small and large intestine Narrative: Latoya Doshi is a 38 year old female here for another colonoscopy, h/o Crohn's disease complicated with fistula and and aliya intestinal mesenteric abscess treated surgically (also confirmed by pathology) 08/2021- also had colonoscopy previous to surgery with difficulty to get into TI. She has been on entyvio since 09/2021. Her loose stools has not changed since surgery with about 3-6 daily as baseline, she does not longer had pain or any abdominal discomfort. Last colonoscopy -08/2022 with normal random biopsies of carol ann terminal ileum and colon (no obvious inflammation), recent stool calprotectin elevated 560. Review of Systems Review of Systems: All systems reviewed & are unremarkable except as noted in HPI and below PMFSH Past Medical History Medical History (Updated 06/19/24 @ 16:09 by ELYSSA Burroughs) HSV-1 infection Encounter for screening examination for sexually transmitted disease Loose stools Diarrhea Anemia Obesity (BMI 30-39.9) Abnormal finding on urinalysis Mesenteric abscess Crohn's disease of ileum with abscess Transaminitis Sepsis Abdominal pain Tachycardia Encounter for female sterilization procedure Advanced maternal age (AMA) in Term Obesity Surgical History Surgical History H/O tubal ligation 02/14/20 [facility] History of colon surgery LAP hand assisted Ileal-cecectomy with anastomosis on 09/13/21./ appendectomy Previous section x2 Family History Family History Mother Hypertension Heart disease Acute myocardial infarction Grandparent Brain cancer Grandparent Diabetes mellitus Social History Social History (Updated 06/13/24 @ 09:00 by ELYSSA Burroughs) Social History: Patient lives at home with her Norman who will be her surrogate. They have 2 kids 1 boy 1 girl and no pets. 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 Patient wishes to be a full code at this time Smoking status: Never smoker Second hand tobacco smoke exposure: No Alcohol intake: never Substance use: never Substance use type: does not use Do You Feel Safe in your Home?: Yes Lack of Transportation: No Lack of Food: Never True Current Housing: I Have Housing Concerned About Future Housing: No Difficulty Paying Gas/Electric Bills: No Difficulty Paying for Meds: No Currently Unemployed: No Education: Bachelor's Degree Difficulty w/ Childcare or Family Care: No Living arrangements: with family Additional living arrangements comments: Occupation/Education: occupation 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[employer] Gender identity (if verbalized by the patient): Female Sexual Orientation (if Verbalized by the Patient): Straight or Heterosexual Spiritual care concerns: No Agree to blood products: Yes Meds Home Medications and Allergies Home Medications ?Medication ?Instructions ?Recorded ?Confirmed ?Type polysaccharide iron complex 150 mg 150 mg PO DAILY@0800 30 days #90 04/06/22 06/25/24 Rx iron capsule caps spironolactone 100 mg tablet 100 mg PO DAILY 02/08/24 06/25/24 History vedolizumab 300 mg intravenous 300 mg IV ONCE #1 ea 05/03/24 06/14/24 Rx solution (Entyvio) Allergies Allergy/AdvReac Type Severity Reaction Status Date / Time No Known Allergies Allergy Verified 06/25/24 12:08 Vital Signs Vital Signs - 24 hr 06/25/24 12:11 Temperature 97.7 F Pulse Rate 94 Respiratory Rate 20 Blood Pressure 142/90 H Pulse Oximetry 99 Oxygen Delivery Room Air Exam Const: General: comfortable and no acute distress HENMT: Face/Nose/Sinus: Normal nares present Eyes: General: appearance normal, both eyes and all related structures Neck: Neck: no JVD Resp: Auscultation: clear to auscultation bilaterally Cardio: Rate: regular rate Rhythm: regular rhythm GI: Inspection: non-distended GI Palp: Yes Soft to palpation Skin: General skin exam: normal color Neuro: General: gait normal Speech: normal speech Extrem: General: normal to inspection Psych: Mental Status: mental status grossly normal Assessment and Plan Assessment and plan (1) Crohn's disease: Qualifiers: Gastrointestinal tract location: small and large intestine Digestive disease complication type: unspecified complication Qualified Code(s): K50.819 - Crohn's disease of both small and large intestine with unspecified complications Code(s): K50.90 - Crohn's disease, unspecified, without complications Status: Acute Assessment and Plan: colonoscopy, recent elevated calprotectin on entyvio (2) Loose stools: Code(s): R19.5 - Other fecal abnormalities Status: Acute
--- NOTE | 2024-06-25 12:30 | P.PNAN_ITS ---
Anes - Initial Pre Proc Eval Procedure: Operation Date: 06/25/24 13:00 Proposed Procedures p Colonoscopy - Martín Stephens MD Date/Time: 06/25/24 12:30 Surgeon: Martín Stephens MD Pre Op Diagnosis: Crohn's disease of both small and large intestine Patient Data Age: 38 Gender: F Height: 1.63 m Weight: 98.3 kg Last Vital Signs Temp 97.7 F 06/25/24 12:11 Pulse 94 06/25/24 12:11 Resp 20 06/25/24 12:11 BP 142/90 H 06/25/24 12:11 Pulse Ox 99 06/25/24 12:11 O2 Del Method Room Air 06/25/24 12:11 Allergies Allergy/AdvReac Type Severity Reaction Status Date / Time No Known Allergies Allergy Verified 06/25/24 12:08 Home Medications ?Medication ?Instructions ?Recorded ?Confirmed ?Type polysaccharide iron complex 150 mg 150 mg PO DAILY@0800 30 days #90 04/06/22 06/25/24 Rx iron capsule caps spironolactone 100 mg tablet 100 mg PO DAILY 02/08/24 06/25/24 History vedolizumab 300 mg intravenous 300 mg IV ONCE #1 ea 05/03/24 06/25/24 Rx solution (Entyvio) Laboratory Tests 06/25/24 12:24 POC Urine HCG, Qual Negative (Negative) Patient hx anesthesia problems: none Family hx anesthesia problems: none Results Review: All pre-operative results and documents have been reviewed as part of the pre- operative evaluation. REPLACED BY [facility] Past Medical History Medical History HSV-1 infection Encounter for screening examination for sexually transmitted disease Loose stools Diarrhea Anemia Obesity (BMI 30-39.9) Abnormal finding on urinalysis Mesenteric abscess Crohn's disease of ileum with abscess Transaminitis Sepsis Abdominal pain Tachycardia Encounter for female sterilization procedure Advanced maternal age (AMA) in Term Obesity Surgical History Surgical History H/O tubal ligation 02/14/20 [facility] History of colon surgery LAP hand assisted Ileal-cecectomy with anastomosis on 7/18/22./ appendectomy Previous section x2 Family History Family History Mother Hypertension Heart disease Acute myocardial infarction Grandparent Brain cancer Grandparent Diabetes mellitus Social History Social History Social History: Patient lives at home with her Norman who will be her surrogate. They have 2 kids 1 boy 1 girl and no pets. 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 Patient wishes to be a full code at this time Smoking status: Never smoker Second hand tobacco smoke exposure: No Alcohol intake: never Substance use: never Substance use type: does not use Do You Feel Safe in your Home?: Yes Lack of Transportation: No Lack of Food: Never True Current Housing: I Have Housing Concerned About Future Housing: No Difficulty Paying Gas/Electric Bills: No Difficulty Paying for Meds: No Currently Unemployed: No Education: Bachelor's Degree Difficulty w/ Childcare or Family Care: No Living arrangements: with family Additional living arrangements comments: Occupation/Education: occupation 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/education 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 [employer] Gender identity (if verbalized by the patient): Female Sexual Orientation (if Verbalized by the Patient): Straight or Heterosexual Spiritual care concerns: No Agree to blood products: Yes Anes - Eval Final PreProcedure Day of Procedure 06/25/24 12:30 Patient weight: obese Lungs: normal air movement Airway: Mallampati scale class II Neurological: alert and oriented Last oral intake: >/= 8 hours ASA classification: II Emergent: no Anesthetic plan: proceed Anesthesia type and monitoring: general GIVS and standard monitoring Results Review: All pre-operative results and documents have been reviewed as part of the pre- operative evaluation. BMI 37, crohn's, now for eval. Informed Consent: The patient's anesthetic plan and its attendant risks and benefits were discussed with the patient/family/POA. Questions were solicited and answers provided to the satisfaction of the patient/family/POA.
[2024-06-25 12:46] VITALS: BP 124/75; PULSE 70; RESP 21; O2SAT 99
[2024-06-25 12:56] VITALS: BP 125/77; PULSE 68; RESP 21; O2SAT 99
[2024-06-25 13:06] VITALS: BP 131/77; PULSE 72; RESP 23; O2SAT 100
== END 2024-06-25 13:28 | disposition home or self-care (01) ==
PROVIDERS: Anesthesiology; PCP Family Medicine; Referring Provider Internal Medicine Gastroenterology; Visit Provider Internal Medicine Gastroenterology
PROC: 0DJD8ZZ Inspection of Lower Intestinal Tract, Via Natural or Artificial Opening Endoscopic (ICD-10-PCS; CPT 45378; principal; 2024-06-25 13:00)
DX: R19.5 Other fecal abnormalities (principal); K50.819 Crohn's disease of both small and large intestine with unspecified complications; D64.9 Anemia, unspecified; R00.0 Tachycardia, unspecified; E66.9 Obesity, unspecified; Z68.37 Body mass index [BMI] 37.0-37.9, adult; Z98.890 Other specified postprocedural states; Z98.0 Intestinal bypass and anastomosis status; Z90.49 Acquired absence of other specified parts of digestive tract; Z98.51 Tubal ligation status; Z80.8 Family history of malignant neoplasm of other organs or systems; Z82.49 Family history of ischemic heart disease and other diseases of the circulatory system
CPT/HCPCS: 45380; 88305; J2003; J2704; J7120

== ENCOUNTER 2024-10-22 12:25 | Outpatient (CLI) | payer BC, SELFPAY ==
--- OUTSIDE RECORDS SUMMARY | 2024-10-22 12:29 | XMS_ITS | Clinical Summary ---
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 Gender Identity Not on file Sexual Orientation Not on file Plan of Treatment Health Maintenance Due Date Last Done Comments Hepatitis C Virus (HCV) Screening 1984 Hepatitis B Immunization (1 of 3 - 19+ 3-dose series) 08/18/2003 Pap Smear 2005 Human Papillomavirus (HPV) Immunization (1 - 3-dose SCDM series) 08/18/2011 Cervical Cancer Screening (CCS) 2014 HPV/Cotest 2014 SARS-COV-2 Immunization ( season) 2023 Influenza Immunization (#1) 2024 12/30/2019 Respiratory Syncytial Virus (RSV) Immunization (Adult) (1 - 1-dose 75+ series) 08/18/2059 DTaP/Tdap/Td Immunization Discontinued 12/30/2019 TdaP Immunization Completed 12/30/2019 Meningococcal Immunization (ACWY) Aged Out No longer eligible based on patient's age to complete this topic Pneumococcal Immunization Combined Aged Out No longer eligible based on patient's age to complete this topic Rotavirus Immunization Aged Out No lo nger eligible based on patient's age to complete this topic
--- OUTSIDE RECORDS SUMMARY | 2024-10-22 12:29 | XMS_ITS | Clinical Summary ---
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
[2024-10-22 12:44] LABS: Hematocrit 37.9 % (37.0-47.0); Hemoglobin 11.7 g/dL (12.0-15.0); Mean Corpuscular HGB Conc 30.9 g/dl (32-36); Mean Corpuscular Hemoglobin 26.2 pg (26-34); Mean Corpuscular Volume 84.8 fl (80-100); Platelet Count Result 304 k/mm3 (150-375); Red Blood Count 4.47 M/mm3 (4.2-5.4); White Blood Count 7.2 K/mm3 (4.5-10.0)
[2024-10-22 13:06] LABS: Alanine Aminotransferase 20 U/L (6-35); Albumin Level 4.6 g/dL (3.5-5.1); Alkaline Phosphatase 74 U/L (38-126); Anion Gap 8 mmol/L (4-12); Aspartate Amino Transferase 29 U/L (14-36); Bilirubin,Total 0.3 mg/dL (0.2-1.3); Blood Urea Nitrogen 10 mg/dL (7-17); CRP 1.7 mg/dL (<1.0); Calcium 9.8 mg/dL (8.4-10.2); Carbon Dioxide 26 mmol/L (22-30); Chloride 104 mmol/L (98-107); Estimated Glomerular Filt Rate > 60; Glucose 91 mg/dL (65-110); Potassium 4.4 mmol/L (3.4-5.0); Sodium 138 mmol/L (137-145); Total Protein 7.8 g/dL (6.3-8.2)
== END 2024-10-22 12:26 | disposition home or self-care (01) ==
LOC: ANHLAB 12:27
PROVIDERS: PCP Family Medicine; Visit Provider Internal Medicine Gastroenterology
DX: K50.819 Crohn's disease of both small and large intestine with unspecified complications (principal)
CPT/HCPCS: 36415; 80053; 85027; 85652; 86140

== ENCOUNTER 2024-12-16 13:31 | Outpatient (CLI) | payer BC, SELFPAY ==
[2024-12-16 14:08] LABS: Hematocrit 37.0 % (37.0-47.0); Hemoglobin 11.5 g/dL (12.0-15.0); Immature Granulocyte Percent A 0.3 % (0-0.5); Lymphocytes Absolute Auto 1.86 K/mm3 (0.9-3.2); Mean Corpuscular HGB Conc 31.1 g/dl (32-36); Mean Corpuscular Hemoglobin 26.6 pg (26-34); Mean Corpuscular Volume 85.6 fl (80-100); Nucleated Red Blood Cells Absolute Auto 0.000 K/mm3 (0.0-0.012); Nucleated Red Blood Cells Perc 0.0 % (0.0-0.2); Platelet Count Result 283 k/mm3 (150-375); Red Blood Count 4.32 M/mm3 (4.2-5.4); White Blood Count 7.0 K/mm3 (4.5-10.0)
[2024-12-16 15:18] LABS: Alanine Aminotransferase 17 U/L (6-35); Albumin Level 4.2 g/dL (3.5-5.1); Alkaline Phosphatase 69 U/L (38-126); Anion Gap 6 mmol/L (4-12); Aspartate Amino Transferase 28 U/L (14-36); Bilirubin,Total 0.5 mg/dL (0.2-1.3); Blood Urea Nitrogen 11 mg/dL (7-17); Calcium 8.9 mg/dL (8.4-10.2); Carbon Dioxide 25 mmol/L (22-30); Chloride 105 mmol/L (98-107); Cholesterol 143 mg/dL (0-200); Estimated Glomerular Filt Rate > 60; Glucose 86 mg/dL (65-110); HDL Direct 48 mg/dL; Potassium 4.2 mmol/L (3.4-5.0); Sodium 136 mmol/L (137-145); Total Protein 7.3 g/dL (6.3-8.2); Triglycerides 58 mg/dL (<150)
--- OUTSIDE RECORDS SUMMARY | 2024-12-16 15:27 | XMS_ITS | Clinical Summary ---
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
--- OUTSIDE RECORDS SUMMARY | 2024-12-16 15:27 | XMS_ITS | Clinical Summary ---
Author Organization [facility] Address [address] [place], [place] [id number] Care Team Providers Care Drywall Hanger Framer Name Role Phone Unavailable Primary Care Provider [...] of 3 - 19+ 3-dose series) 08/18/2003 HPV Vaccines (1 - 3-dose SCD M series) 08/18/2011 Cervical Cancer Screening Pa p with HPV Testing (Age 30 to 64) Every 5 Years 2014 Cervical Cancer Screening with HPV 2014 Mammogram Screening 2024 COVID-19 Vaccine ( - 2023-2 5 season) 2024 Influenza Adult (#1) 2024 Meningococcal B Vaccine Aged Out No l [...]
--- OUTSIDE RECORDS SUMMARY | 2024-12-16 15:27 | XMS_ITS | Clinical Summary ---
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
[2024-12-16 15:48] LABS: Thyroid Stimulating Hormone 0.297 uIU/mL (0.465-4.680)
== END 2024-12-16 13:32 | disposition home or self-care (01) ==
LOC: ANHLAB 13:32
PROVIDERS: PCP Family Medicine; Visit Provider Family Medicine
DX: K50.819 Crohn's disease of both small and large intestine with unspecified complications (principal); R19.7 Diarrhea, unspecified; I10 Essential (primary) hypertension
CPT/HCPCS: 36415; 80053; 80061; 84443; 85025

== ENCOUNTER 2025-02-03 12:50 | Outpatient (CLI) | payer BC, SELFPAY ==
[2025-02-03 14:11] LABS: Thyroid Stimulating Hormone < 0.015 uIU/mL (0.465-4.680)
== END 2025-02-03 12:51 | disposition home or self-care (01) ==
LOC: ANHLAB 12:51
PROVIDERS: PCP Family Medicine; Visit Provider Family Medicine
DX: R79.89 Other specified abnormal findings of blood chemistry (principal)
CPT/HCPCS: 36415; 84443; 86376